=== PATIENT | male | born 1970 | race Caucasian/White ===

== ENCOUNTER 2017-03-11 20:03 | Observation (INO) | payer MEDICARE, OTHER, MEDICAID ==
[~2017-03-11] VITALS: Ht 177.8 cm; Wt 73.0 kg
[~2017-03-11 20:03] MED LIST: CATAPRES0.1 MG PO; LEXAPRO10 MG PO; RISPERDAL M-TAB1 MG PO; TRAZODONE HCL100 MG PO; VALPROIC ACID250 MG PO; ZOLPIDEM TART12.5 MG PO; [UNRECOGNIZED DRUG - OTHER] IM
--- NOTE | 2017-03-11 23:00 | NUR ---
TO CCU PER STRETCHER FROM ED. PT MOVED FROM STRETCHER TO BED USING SLIDER BOARD. PT DID TRY TO OPEN EYES BRIEFLY WITH MOVEMENT AND HAD RANDOM MOVEMENT OF ARMS. NO VERBALIZATION. POSITIONED TO SIDE. HAS NASAL AIRWAY IN PLACE WITH OXYMASK IN PLACE ALSO.
--- NOTE | 2017-03-12 00:05 | NUR ---
MOM IN WITH PT. NO CHANGE.
--- NOTE | 2017-03-12 00:52 | NUR ---
MOM HOME. PT REPOSITIONED AND DID NOT AWAKEN. MOM DID INFORM NURSE THAT WHEN PT DOES AWAKEN HE MAY BE ANGRY HE HAS PRESENTED THIS WAY IN THE PAST WHEN AWAKENING FROM OVERDOSES.
--- NOTE | 2017-03-12 03:00 | NUR ---
PT CONT TO SLEEP NO CHANGE.
--- NOTE | 2017-03-12 04:24 | NUR ---
POISON CONTROLL CALLED ABOUT 0300 AND RECOMMENDED TO REPEAT VALPROIC ACID LEVEL. PT COUGHED AND AWAKE. NASAL PHARYNGEAL AIRWAY REMOVED PER FLORIN RT. IS CONFUSED BUT DID REMEMBER TAKING YELLOW PILLS. IS SLOW TO RESPOND AND DELIBERATE. GIVEN SIP WATER AND ALICIA WELL. CONT TO USE 02 2L OXYMASK.
--- NOTE | 2017-03-12 04:59 | NUR ---
HAS LOOSE COUGH, IS MORE AWAKE. 02 OFF,SATS 95% RA.
--- NOTE | 2017-03-12 06:00 | NUR ---
AWAKENS EASILY, LAB DRAWN. IS FORGETFUL AND NEEDS TO BE REMINDED OF EVENTS EVERYTIME HE AWAKENS. COUGH IS NOT LOOSE.
--- NOTE | 2017-03-12 08:00 | NUR ---
ASSESSMENT DONE. PATIENT IS DROWSY. TALKED WITH PATIENT ABOUT PLAN OF CARE OF DAY. INC OF STOOL.
--- NOTE | 2017-03-12 08:57 | NUR ---
PT SLEEPY BUT OPENS EYES, CONFUSED TO PLACE STATES "I THOUGHT I WAS AT MY GRANDMOTHERS HOUSE". PT HAD EMESIS, 3 PARTIALLY DIGESTED PILLS NOTED. ORAL CARE COMPLETED, LINEN & GOWN CHANGED. HOB ELEVATED AND WARM BLANKET GIVEN PER PT REQUEST. VITAL SIGNS & ASSESSMENT COMPLETED. DR. FABIAN IN TO ASSESS PT BUT PT AGAIN NAUSEATED AND HAD SMALL EMESIS. DR. FABIAN WILL RETURN TO ASSESS PT. LINEN CHANGED AND PT MEDICATED ZOFRAN 4MG IV, PROTONIX 40 MG IV AND MAALOX 30 MLS PO. HOB REMAINS ELEVATED, MOTHER IN TO VISIT WITH PT. PT ABLE TO CONVERSE BUT IS STILL GROGGY.
--- NOTE | 2017-03-12 10:47 | NUR ---
PT SLEEPING WITH REU, SATS 96% HOB ELEVATED.
--- NOTE | 2017-03-12 12:13 | NUR ---
DR. FABIAN IN TO ASSESS PT. PT AWAKENS TO VOICE AND FOLLOWS COMMANDS BUT IS CONFUSED TO PLACE. STATES HE IS AT "[facility]". ASSESSMENT COMPLETED - PT WATCHING TV, DRINKING JUICE WITHOUT PROBLEMS. ROSALES CATHETER DC'D WITHOUT DIFFICULTY, PT ALICIA WELL. PT SITTING UP IN BED EATING JELLO AND SOUP. NO NAUSEA AT THIS TIME. [employer] NOTIFIED AND WILL SEND A CASE-WORKER TO ASSESS PT.
--- NOTE | 2017-03-12 12:58 | NUR ---
Art CircleELY CAN INTO VISIT WITH PATIENT AT THIS TIME, BUT WOULD NOT OPEN HIS EYE OR TALK WITH THEM AT THIS TIME. THIS LAND MANAGEMENT SUPERVISOR WENT INTO THE ROOM AND ASKED HIM TO OPEN HIS EYES AND HE DID, BUT WHEN THE MELTER SUPERVISOR STATRTED TO TALK HE CLOSED THEM AGAIN. MELTER SUPERVISOR WILL COME BACK LATER TODAY AND SEE IF PT WILL BE WILLING TO TALK WITH THEM.
[2017-03-12] MEDS ORDERED: LEVETIRACETAM500 MG PO (13:10)
[2017-03-12] MEDS ORDERED: TRUVADA 200 MG1 EACH PO (13:10)
[2017-03-12] MEDS ORDERED: ESCITALOPRAM OX20 MG PO (13:41)
--- NOTE | 2017-03-12 13:45 | NUR ---
PT SLEEPING AWAKENS BRIEFLY FOR SHORT PERIODS. [facility] (PHARMACY) HERE AND MOTHER OF PT HERE. [employer] ALSO HERE TO ASSESS PT BUT PT IS SLEEPY. [employer] REMAINS IN ROOM TALKING WITH PT.
--- NOTE | 2017-03-12 14:03 | EKG ---
[facility] [address] [facility] [place] [address] Signed Normal sinus rhythm Normal ECG No previous ECGs available Confirmed by EDMAR FABIAN MD ([id number]) on 03/12/2017 2:03:06 PM Electronically Signed By: EDMAR FABIAN MD 03/12/17 1403 PATIENT NAME: LEONOR LEVIN MARINA Electrocardiogram DATE OF : 70 PHYSICIAN: EDMAR FABIAN MD REPORT #: [id number] REPORT IS CONFIDENTIAL AND NOT TO BE RELEASED WITHOUT AUTHORIZATION
--- NOTE | 2017-03-12 14:04 | NUR ---
Medications reconciled using pharmacy prescription records and patient's mother's interview. She will also bring in his meds later today
--- NOTE | 2017-03-12 14:17 | NUR ---
CRISIS WORKING COMPLETED HER ASSESSMENT AND STATES FEELING COMFORTABLE SENDING PT HOME IF HIS MOTHER WILL BE WITH HIM.
--- NOTE | 2017-03-12 14:45 | NUR ---
Medication verification complete. Patient's mother brought in bag of patient's meds
--- NOTE | 2017-03-12 16:06 | NUR ---
PT SLEEPING BUT AWAKENS TO VOICE. PT HAS SLEEP APNEA AND SATS DECREASED TO 73%. 02 ON AT L3 PER OXYMASK.
--- NOTE | 2017-03-12 16:19 | NUR ---
PT AWAKE AND VOIDED 200 MLS DARK ORANGE URINE.
--- NOTE | 2017-03-12 16:29 | NUR ---
ASSESSMENT COMPLETED, LUNGS WITH RHONCHI IN LEFT UPPER LOBE, PT WITH GOOD STRONGE COUGH. PT FALLS ASLEEP QUICKLY, 02 ON @ 3L PER OXYMASK AND HOB ELEVATED.
--- NOTE | 2017-03-12 18:24 | NUR ---
PT AWAKE, SATS 100% ON 3L PER OXYMASK, 02 OFF AND SATS 98%. MOTHER IN ROOM VISITING WITH PT.
--- NOTE | 2017-03-13 00:59 | NUR ---
PT BED ALARM GOING OFF. SITTING AT BEDSIDE. APPEARS CONFUSED. URINATED IN WATER CUP. PT REQUESTING TO GET UP TO BATHROOM TO VOID. AGREED TO VOID INTO URINAL D/T CONFUSION/POTENTIAL FOR FALL. VOIDED 225ML TO URINAL.
--- NOTE | 2017-03-13 06:52 | NUR ---
PT WATCHING TELEVISION. DENIES NEEDS.
--- NOTE | 2017-03-13 07:40 | NUR ---
PT CARE ASSUMED. PT RESTING IN BED. REQUESTING [employer]ATOR[employer] FOR BREAKFAST, DOES NOT WANT ANY FOOD. PT ALERT AND ORIENTED. DENIES ANY PAIN AT THIS TIME.
--- NOTE | 2017-03-13 09:24 | NUR ---
PT UP TO BATHROOM FOR SHOWER. DR GRAMAJO OKAY WITH PT BEING OFF MONITOR TO GO TO SHOWER
--- NOTE | 2017-03-13 09:31 | NUR ---
[employer] called for pt. will call back with an eta
--- NOTE | 2017-03-13 09:38 | NUR ---
POISON CONTROL CALLED FLOOR TO CHECK ON PT, THEY WILL CLOSE HIS CASE.
[2017-03-13] MEDS ORDERED: TRUVADA 200 MG1 EACH PO (10:14)
--- NOTE | 2017-03-13 10:26 | NUR ---
PASTORAL CARE IN ROOM WITH PT
--- NOTE | 2017-03-13 10:53 | NUR ---
[facility] IN TO SEE PT.
--- NOTE | 2017-03-13 11:51 | NUR ---
PT RESTING IN BED, SEEMS SOMEWHAT TENSE, MILDLY PUT OFF THAT THAT MED STAFF WON'T GIVE HIM HIS MEDS BACK THAT CREATED THE PROBLEM TO BEGIN WITH. HE MENTIONED THAT [employer] IS COMING IN. T REQUESTED PRAYER. WILL FOLLOW [facility]
--- NOTE | 2017-03-13 12:21 | NUR ---
PT AND MOM GIVEN DISCHARGE INSTRUCTIONS. VERBALIZED UNDERSTANDING. PT ALERT AND ORIENTED AT DEPART. TAKEN TO CAR IN WHEELCHAIR BY CARLITO
== END 2017-03-13 12:25 | disposition home or self-care (01) ==
LOC: ED 20:03 → CCU 20:04
PROVIDERS: ADMIT Internal Medicine
DX: T42.6X2A Poisoning by other antiepileptic and sedative-hypnotic drugs, intentional self-harm, initial encounter (principal); G92 Toxic encephalopathy; J96.02 Acute respiratory failure with hypercapnia; J96.01 Acute respiratory failure with hypoxia; F32.9 Major depressive disorder, single episode, unspecified; F10.20 Alcohol dependence, uncomplicated; I95.2 Hypotension due to drugs; E83.51 Hypocalcemia; R74.0 Nonspecific elevation of levels of transaminase and lactic acid dehydrogenase [LDH]; G40.909 Epilepsy, unspecified, not intractable, without status epilepticus; Z87.820 Personal history of traumatic brain injury; Z91.5 Personal history of self-harm; Z79.899 Other long term (current) drug therapy
CPT/HCPCS: 36415; 36600; 71010; 80053; 80164; 80176; 81001; 82306; 82803; 83735; 85025; 86704; 86706; 86803; 87340; 93005; 93010; 96360; 96361; 96374; 96375; 96376; 99285; G0378; G0480; J2405; J7030; J7120

== ENCOUNTER 2017-08-18 19:01 | Emergency (ER) | payer MEDICARE, OTHER, MEDICAID ==
[~2017-08-18] VITALS: Ht 177.8 cm; Wt 73.0 kg
[~2017-08-18 19:01] MED LIST changes: +ESCITALOPRAM OX20 MG PO; +LEVETIRACETAM500 MG PO; +TRUVADA 200 MG1 EACH PO
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
--- OUTSIDE RECORDS SUMMARY | 2017-08-18 19:54 | XMS | Clinical Summary ---
Demographics + + + | Address | [address] | | | [place] [address] | + + + | Home Phone | | + + + | Preferred Language | Unknown | + + + | Marital Status | Single | + + + | Holiness Affiliation | LUT | + + + | Race | White | + + + | Ethnic Group | Not or | + + + Author + + + | Author | [facility] INPATIENT REV LOC | + + + [...] Care Team Providers + +------+-------+ | Care Logistician Name | Role | Phone | + +------+-------+ | Reilly Shields MD | PP | tel | + +------+-------+ Source Comments TABITHA is fully live on both [facility] Ambulatory and [facility] InPatient.[facility] Allergies No Known Allergies Current Medications + [...] up as needed in the [facility] clinic ([phone]) with Dr. Gilliam. | + + Social [...]
== END 2017-08-18 22:20 | disposition home or self-care (01) ==
LOC: ED 19:01
DX: G40.909 Epilepsy, unspecified, not intractable, without status epilepticus (principal); F19.10 Other psychoactive substance abuse, uncomplicated; Z91.14 Patient's other noncompliance with medication regimen; F32.9 Major depressive disorder, single episode, unspecified; Z79.899 Other long term (current) drug therapy
CPT/HCPCS: 80053; 81001; 85025; 99284; G0480

== ENCOUNTER 2018-01-09 10:36 | Emergency (ER) | payer MEDICARE, OTHER, MEDICAID ==
[~2018-01-09] VITALS: Ht 177.8 cm; Wt 73.0 kg
== END 2018-01-09 13:42 | disposition home or self-care (01) ==
LOC: ED 10:36
DX: R45.851 Suicidal ideations (principal); F10.129 Alcohol abuse with intoxication, unspecified; Z87.891 Personal history of nicotine dependence; Z79.899 Other long term (current) drug therapy; Y90.8 Blood alcohol level of 240 mg/100 ml or more
CPT/HCPCS: 36415; 80053; 80176; 81001; 84443; 85025; 99283; G0480

== ENCOUNTER 2018-02-22 08:49 | Emergency (ER) | payer MEDICARE, OTHER, MEDICAID ==
[~2018-02-22] VITALS: Ht 177.8 cm; Wt 73.0 kg
[2018-02-22] MEDS ORDERED: NORCO 7.5-3251 EACH PO (10:40)
== END 2018-02-22 10:55 | disposition home or self-care (01) ==
LOC: ED 08:49
DX: S42.022A Displaced fracture of shaft of left clavicle, initial encounter for closed fracture (principal); V29.9XXA Motorcycle rider (driver) (passenger) injured in unspecified traffic accident, initial encounter; F32.9 Major depressive disorder, single episode, unspecified; Z79.899 Other long term (current) drug therapy
CPT/HCPCS: 73000; 73030; 99283

== ENCOUNTER 2018-03-19 11:38 | Day surgery (SDC) | payer MEDICARE, OTHER, MEDICAID ==
[~2018-03-19] VITALS: Ht 177.8 cm; Wt 59.4 kg
[~2018-03-19 11:38] MED LIST changes: +NORCO 7.5-3251 EACH PO
[2018-03-19] MEDS ORDERED: AMBIEN10 MG PO (12:10)
--- NOTE | 2018-03-19 15:31 | NUR ---
03/19/18 1531 [place] 1510- PT ARRIVES TO PACU. ARRIVES ON 6L VIA MASK, OXYGEN SAT HIGH 90'S TO THIS. PT EASILY AROUSABLE TO VOICE. REPORTS MILD PAIN, RATES IT A 2/10. DENIES NAUSEA. 1516- OXYGEN TUNRED OFF. OXYGEN SAT REMAINS IN THE HIGH 90'S ON RA. 1530- PT SITTING UP IN BED DRINKING WATER. REPORTS NO PAIN, NAUSEA, OR DIZZINESS. CMS INTACT TO LEFT HAND.
--- NOTE | 2018-03-19 16:10 | NUR ---
PT ARRIVES TO DS RM 10 FROM PACU AWAKE AND ALERT. PT DENIES ANY PAIN AND STATES HE IS "COMPLETELY NUMB." PT DENIES N/V. SCD'S IN PLACE. PT TOLERATES WATER WELL, IV SALINE LOCKED AT THIS TIME. PT MOTHER AT BEDSIDE ON ARRIVAL. PT STATES THAT HE FEELS THE URGE TO VOID. PT PROVIDED URINAL AND ABLE TO VOID 300 MLS CONCENTRATED URINE. PT PROVIDED CHOCOLATE PUDDING. WILL CONTINUE TO MONITOR.
--- NOTE | 2018-03-19 16:40 | NUR ---
PT DOES NOT HAVE A PAIN MEDICATION SCRIPT TO GO HOME WITH. DR. PEREZ NOTIFIED. PER DR. PEREZ, PT JUST GOT NORCO FILLED "AND SHOULD HAVE ENOUGH." PT IS TO CONTACT DR. PEREZ IF HE RUNS OUT OF MEDICATION FOR REFILL. PT STATES HE ONLY HAS "ABOUT 5 LEFT."
--- NOTE | 2018-03-19 16:56 | NUR ---
PT STATES THAT "TINGLING IS WORKING IT'S WAY UP MY ARM" AND IS AFRAID THAT BLOCK IS WEARING OFF. PAIN MEDICATION ADMINISTERED. PT RESTING IN BED WATCHING TV AND AGREES HE IS READY TO GO HOME.
--- NOTE | 2018-03-19 17:32 | NUR ---
DC INSTRUCTIONS GIVEN IN PRESENCE OF PT AND PT MOTHERGARTH. ALL QUESTIONS ANSWERED. PT DC'S VIA WC FROM DS RM 10 WITH MOTHER.
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
== END 2018-03-19 17:25 | disposition home or self-care (01) ==
LOC: OPS 11:38 → DS 11:38 → OPS 13:00
PROVIDERS: Specialist
PROC: 0PSB04Z Reposition Left Clavicle with Internal Fixation Device, Open Approach (ICD-10-PCS; principal; 2018-03-19 13:30)
DX: S42.022A Displaced fracture of shaft of left clavicle, initial encounter for closed fracture (principal); Z79.899 Other long term (current) drug therapy; Z87.820 Personal history of traumatic brain injury
CPT/HCPCS: 64445; 73000; 76942; C1713; J0330; J0690; J1100; J2250; J2405; J2710; J3010; J7120

== ENCOUNTER 2018-09-15 14:23 | Emergency (ER) | payer MEDICARE, OTHER, MEDICAID ==
[~2018-09-15] VITALS: Ht 177.8 cm; Wt 57.4 kg
[~2018-09-15 14:23] MED LIST changes: +AMBIEN10 MG PO
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
== END 2018-09-15 17:30 | disposition home or self-care (01) ==
LOC: ED 14:23
DX: T74.21XA Adult sexual abuse, confirmed, initial encounter (principal); S60.512A Abrasion of left hand, initial encounter; S60.511A Abrasion of right hand, initial encounter; F32.9 Major depressive disorder, single episode, unspecified; Z79.899 Other long term (current) drug therapy; X58.XXXA Exposure to other specified factors, initial encounter
CPT/HCPCS: 73000; 96372; 99284-25; J0696

== ENCOUNTER 2022-06-14 09:01 | Emergency (ER) | payer MEDICARE, OTHER ==
[~2022-06-14] VITALS: Ht 177.8 cm; Wt 58.2 kg
[~2022-06-14 09:01] MED LIST changes: +ATIVAN0.5 MG PO; +CELEBREX200 MG PO; +LAMICTAL150 MG PO; +MULTIVITAMINS1 EAC7 PO; +TRAMADOL HCL50 MG PO; +TYLENOL325 M1 PO
--- OUTSIDE RECORDS SUMMARY | 2022-06-14 09:07 | XMS ---
PreManage Notification: LEONOR LEVIN Security Home Manager Events No recent Security Events currently on file CRITERIA MET - PDMP CARE PROVIDERS KAREEM LOOLM Internal Medicine 09/16/2018-Current PHONE: Unknown Care Guidelines exist for the following facilities: [facility] ( 11/16/2019 ) Care History Medical/Surgical 09/16/2018 [facility] - Patient is currently established with [facility]. If patient is seen in the ED during business hours. Please contact CHWs at [facility]. Care Recommendation: This patient has had 5 or more Emergency Department visits in the last 12 months.\T\nbsp; Patient requires education on the scope and purpose of the ED as an acute care provider not a Primary Care Provider and should not be utilized for chronic conditions.\T\nbsp; These are guidelines and the provider should exercise clinical judgment when providing care. E.D. VISIT COUNT (12 MO.) 2 [facility]NA [facility] TOTAL 2 NOTE: Visits indicate total known visits. ED/UCC VISIT TRACKING (12 MO.) 06/14/2022 09:05 [facility] [place] TYPE: Emergency COMPLAINT: - LAB WORK PER TABITHA THRU ER 11/26/2021 15:06 [facility] [place] TYPE: Emergency COMPLAINT: - POSS SEIZURE DIAGNOSES: - Personal history of traumatic brain injury - Personal history of nicotine dependence - Other long term care phlebotomist (current) drug therapy - Depression, unspecified - Unspecified convulsions INPATIENT VISIT TRACKING (12 MO.) No inpatient visits to display in this time frame [email or web address]
== END 2022-06-14 13:14 | disposition home or self-care (01) ==
LOC: ED 09:01
DX: A52.71 Late syphilitic oculopathy (principal); Z87.891 Personal history of nicotine dependence; Z79.899 Other long term (current) drug therapy
CPT/HCPCS: 36569; 99283; C1751

== ENCOUNTER 2022-06-21 10:26 | Emergency (ER) | payer MEDICARE, OTHER ==
[~2022-06-21] VITALS: Ht 177.8 cm; Wt 58.5 kg
--- OUTSIDE RECORDS SUMMARY | 2022-06-21 10:28 | XMS ---
PreManage Notification: LEONOR LEVIN Security Alum Plant Supervisor Events No recent Security Events currently on file CRITERIA MET - [facility] - 2 Visits in 30 Days - PDMP CARE PROVIDERS LALITA LOO Internal Medicine 09/16/2018-Current PHONE: Unknown Care Guidelines exist for the following facilities: [facility] ( 11/16/2019 ) Care History Medical/Surgical 09/16/2018 [facility] - Patient is currently established with [facility]. If patient is seen in the ED during business hours. Please contact CHWs at [facility]. Care Recommendation: This patient has had [...] providing care. E.D. VISIT COUNT (12 MO.) 3 [facility]ANNA [facility] TOTAL 3 NOTE: Visits indicate total known visits. ED/UCC VISIT TRACKING (12 MO.) 06/21/2022 10:26 [facility] [place] TYPE: Emergency COMPLAINT: - WOUND CHECK 06/14/2022 09:05 [facility] [place] TYPE: Emergency COMPLAINT: - LAB WORK PER [facility] ER DIAGNOSES: - Late syphilitic oculopathy - Personal history of nicotine dependence - Other detention (current) drug therapy 11/26/2021 15:06 [facility] [place] TYPE: Emergency COMPLAINT: - POSS SEIZURE DIAGNOSES: - Personal history of nicotine dependence - Other supervisor intermediates (current) drug therapy - Depression, unspecified - Unspecified convulsions - Personal history of traumatic brain injury INPATIENT VISIT TRACKING (12 MO.) No inpatient visits to display in this time frame [email or web address]
[2022-06-21] MEDS ORDERED: ELIQUIS5 MG (12:40)
[2022-06-21] MEDS ORDERED: HYDROCODON-ACE1 EA10 PO (15:43)
== END 2022-06-21 15:42 | disposition home or self-care (01) ==
LOC: ED 10:26
DX: A52.3 Neurosyphilis, unspecified (principal); I80.8 Phlebitis and thrombophlebitis of other sites; Z87.891 Personal history of nicotine dependence; Z79.899 Other long term (current) drug therapy; Z79.01 Long term (current) use of anticoagulants
CPT/HCPCS: 93971; A9270; J0696

== ENCOUNTER 2022-10-13 10:57 | Inpatient (IN) | payer MEDICARE, OTHER ==
[~2022-10-13] VITALS: Ht 177.8 cm; Wt 71.9 kg
[~2022-10-13 10:57] MED LIST changes: +ELIQUIS5 MG; +HYDROCODON-ACE1 EA10 PO; +NALTREXONE HCL50 MG PO; +OYSTER SHELL C500 MG PO
--- OUTSIDE RECORDS SUMMARY | 2022-10-13 11:00 | XMS ---
PreManage Notification: LEONOR LEVIN Security Safety And Occupational Health Manager Events No recent Security Events currently on file CRITERIA MET - [facility] - 2 Visits in 30 Days - PDMP CARE PROVIDERS LALITA LOO Internal Medicine 09/16/2018-Current PHONE: Unknown Care Guidelines exist for the following facilities: [facility] ( 11/16/2019 ) Care History Medical/Surgical 09/16/2018 [facility] - Patient is currently established with [facility]. If patient is seen in the ED during business hours. Please contact CHWs at [facility]. Care Recommendation: This patient has had 5 [...] providing care. E.D. VISIT COUNT (12 MO.) 6 BRIANNA Shore TOTAL 6 NOTE: Visits indicate total known visits. 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 - Other custodial (current) drug therapy - Unspecified convulsions - Patient's other noncompliance with medication regimen 06/21/2022 10:26 BRIANNA Driscoll [place] TYPE: Emergency COMPLAINT: - WOUND CHECK DIAGNOSES: - senior care (current) use of anticoagulants - Personal history of nicotine dependence - Neurosyphilis, unspecified - Phlebitis and thrombophlebitis of other sites - Pain in left arm - Other custodial (current) drug therapy 06/14/2022 09:05 BRIANNA Driscoll [place] TYPE: Emergency COMPLAINT: - LAB WORK PER [facility] ER DIAGNOSES: - Personal history of nicotine dependence - Other custodial (current) drug therapy - Late syphilitic oculopathy 11/26/2021 15:06 BRIANNA Driscoll [place] TYPE: Emergency COMPLAINT: - POSS SEIZURE DIAGNOSES: - Depression, unspecified - Unspecified convulsions - Personal history of traumatic brain injury - Personal history of nicotine dependence - Other custodial (current) drug therapy INPATIENT VISIT TRACKING (12 MO.) No inpatient visits to display in this time frame [id number]
[2022-10-13] MEDS ORDERED: ONDANSETRON ODT8 MG PO (12:13)
--- NOTE | 2022-10-13 14:40 | NUR ---
PT ARRIVED TO CCU ROOM 129, ADMITTED FOR SEPSIS, SEIZURES, AND POSSIBLE ALCOHOL WITHDRAWAL. REPORT RECEIVED FROM RAFIA THOMPSON, TRANSFERRED TO BED. PT WAS AGITATED AND TRYING TO CLIMB OUT OF BED, PULLING AT CORDS, DESPITE ATTEMPTS AT REORIENTATION, FOUND TO HAVE LOOSE STOOL, PT CLEANED UP AND HE CONTINUED TO BE SOMEWHAT AGITATED, TRYING TO GET OUT OF BED AND NOT DIRECTABLE. 2MG IV ATIVAN GIVEN AND PT EVENTUALLY CALMED DOWN TO REST. MOTHER GARTH IS WITH PT AND INFORMATION FOR ADMISSION ASSESSMENT IS FROM HER. IVF STARTED PER ORDERS.
--- NOTE | 2022-10-13 16:14 | NUR ---
DR GRAMAJO UPDATED ON PT, INCLUDING RECENT TEMPS, SHE WILL BE PLACING ORDER FOR RECTAL TYLENOL. IV ABX INFUSING. PT IS OCCASIONALLY WAKING, TOSSING AND TURNING BUT NO LONGER TRYING TO GET OUT OF BED.
--- NOTE | 2022-10-13 16:26 | NUR ---
2MG IV ATIVAN FOR CIWA 15, PT AWAKE AND AGITATED AGAIN, NOT ABLE TO ANSWER ANY OF THE ORIENTATION QUESTIONS, STATES "NO" WHEN ASKED IF HE KNOWS WHERE HE IS. AFTER ATIVAN PT CALMS AND GOES BACK TO SLEEP.
--- NOTE | 2022-10-13 17:01 | NUR ---
PT AGAIN BECAME AGITATED, TRYING TO GET OUT OF BED, ASSISTED WITH USING URINAL ALTHOUGH HE WAS STILL QUITE COMBATIVE. PT REPOSITIONED UP IN BED, STARTING TO MAKE HAND MOTIONS LIKE HE IS SMOKING A CIGARETTE. 2MG IV ATIVAN GIVEN.
--- NOTE | 2022-10-13 18:50 | NUR ---
CALL TO DR GRAMAJO, QUICK UPDATE GIVEN ON PT STATUS, MEDS GIVEN AND CONT ELEVEATED TEMP.
--- NOTE | 2022-10-13 19:28 | NUR ---
PT HAS BECOME AGITATED AND RESTLESS AGAIN, PULLING AT IV LINES AND CORDS AND TRYING TO GET OUT OF BED, 2MG IV ATIVAN GIVEN. MOM ALSO BACK TO SIT WITH PT. BED ALARM ON.
--- NOTE | 2022-10-13 19:45 | NUR ---
PT ASSESSED AND FOUND TO BE RESTLESS, ATTEMPTING TO GET OUT OF BED WITH SECURITY AT BEDSIDE. CIWA ASSESSED AND PRN LORAZEPAM ADMINISTERED. PT IS ALERT BUT DISORIENTED X 4. PT FOUND TO BE MOVING ALL FOUR EXTREMITIES BUT DOES NOT FOLLOW COMMANDS. BED ALARM TURNED ON, AND ALARM LIMITS SET.
--- NOTE | 2022-10-14 00:15 | NUR ---
BLADDER SCANNED AND 598 CC NOTED. PT INSTRUCTED TO URINATE, HOWEVER, UNWILLING TO DO SO AT THIS TIME. PT WITH RASS OF -3. SEDATION LIGHTENED TO 0.2
--- NOTE | 2022-10-14 02:31 | NUR ---
PT WAKES TRYING TO GET OUT OF BED AND YELLING. CIWA 14. SEDATION MEDICATION RESTARTED AT 0.2 MCG/KG/HR AND ATIVAN PROVIDED. PT RESTING IN BED AT THIS TIME. RAILS UP, BED LOCKED AND LOW, CURTAIN AND DOOR OPEN FOR OBSERVATION, BED ALARM ON.
--- NOTE | 2022-10-14 06:13 | NUR ---
PT REMAINS ALTERED AND UNWILLING TO FOLLOW COMMANDS. PT WITH CONINUED RESTLESSNESS REQUIRING LOW-DOSE PRECEDEX GTT., AND MULTIPLE PRNS FOR ELEVATED CIWA SCORES. PT HAS BEEN IN A NSR, NORMOTENSIVE AND INITIAL FEVER HAS RESOLVED. PT NOTED TO HAVE URINARY RETENTION. ROSALES CATHETER INSERTED PER MD ORDER. PT WITH ADEQUATE UO. LABS: RESOLVING LEUKOCYTOSIS - WBC NOW 16.3 DOWN FROM 29.5. IMPROVED RENAL FUNCTION BUN/CREAT - 12/.71. MAG 2.4
--- NOTE | 2022-10-14 07:50 | NUR ---
REPORT RECEIVED FROM DAVON THOMPSON. PT IS RESTING IN BED WITH EYES CLOSED, HR 60'S, SINUS RHYTHM, SPO2 96% ON ROOM AIR WITH RR 13. BED ALARM IS ON. PRECEDEX DRIP IS INFUSING AT 0.2 MCG/KG/HR AND IVF INFUSING AT 125ML/HR.
[2022-10-14] MEDS ORDERED: DIFLUPREDNATE5 ML OU (09:01)
[2022-10-14] MEDS ORDERED: ALENDRONATE SOD70 MG PO (09:04)
--- NOTE | 2022-10-14 09:20 | NUR ---
PATIENT RESTING IN BED, EYES CLOSED. VITALS AND I&OS CHARTED, ROSALES EMPTIED.
--- NOTE | 2022-10-14 09:25 | NUR ---
PRECEDEX GTT PLACED ON STANDBY FOR NOW TO ASSESS PT'S NEURO STATUS.
--- NOTE | 2022-10-14 12:15 | NUR ---
PATIENT BACK TO BED AFTER USING BSC FOR BM. MOTHER IN ROOM, LINEN CHANGED. BED ALARM ON FOR SAFETY.
--- NOTE | 2022-10-14 13:03 | NUR ---
INTO TO SEE PATIENT, PATIENT IN BED RESTING. PATIENTS MOTHER GARTH AT BEDSIDE TO ASSIST WITH CM ASSESSMENT. PATIENT CURRENTLY LIVE ALONE IN A HOME IN [place]. PATIENT MOTHER STATES HE HAS A HX OF A TBI 18 YEARS AGO AND DOES HAVE A SEIZURE DISORDER. PATIENT DOES NOT REQUIRE ANY DME. PATIENT MOTHER STATES HE RECVS FOOD STAMPS AND SSI. GARTH, PATIENT MOTHER WILL STAY WITH THE PATIENT AFTER DISCHARGE. DURING ASSESSMENT WITH PATIENT MOTHER, PATIENT DOES AWAKEN. PATIENT IS ABLE TO SPEAK IN SHORT SENTENCES, BUT DID NOT APPEAR TO TRACK THE CONVERSATION. WILL FOLLOW UP TO SPEAK PATIENT REGARDING POSSIBLE [facility] REFERRAL.
--- NOTE | 2022-10-14 13:08 | NUR ---
PT SITTING UP IN CHAIR, VAPOTHERM TURNED DOWN BY RT TO 30L/60%. SPO2 95% AND RR 22.
--- NOTE | 2022-10-14 13:09 | NUR ---
MED LIST AND RECORDS REQUESTED AT THIS TIME
--- NOTE | 2022-10-14 13:14 | NUR ---
[facility] BED [facility] AND [facility] 70[facility]. REMAINS OFF PRECEDEX GTT.
--- NOTE | 2022-10-14 13:35 | NUR ---
PT CONTINUES TO REST IN BED WITH EYES CLOSED, RRR, HR 80'S, RR 12. MOM LEAVING FOR NOW. BED ALARM IS ON.
--- NOTE | 2022-10-14 16:57 | NUR ---
UPDATE TO MARTINA RODAS TO DC ROSALES. ROSALES DCD WITH BALLOON INTACT.
--- NOTE | 2022-10-15 06:19 | NUR ---
PT REMAINS AWAKE, ALERT AND ORIENTED X 4 WITH A GCS OF 15. PT FOLLOWS COMMANDS APPROPRIATELY AND MOVES ALL FOUR EXTREMITIES WITH PURPOSE. CMS X 4 INTACT. PT HAS SCORED 0 ON CIWA. PT HAS BEEN IN A NSR, NORMOTENSIVE AND A-FEBRILE. PT WITH ADEQUATE UO. PT ABLE TO MOVES AND ADJUST SELF IN BED. LABS: RESOLVED LEUKOCYSTOSIS. IMPROVED CREAT OF .66. K NOTED TO BE 3.2. PT RECEIVING ROCEPH. AND AZITHROMYCIN FOR ABX THERAPY. BC AND UC REMAIN PENDING.
--- NOTE | 2022-10-15 08:21 | NUR ---
PATIENT AWAKE IN BED, SPEAKING WITH CASE MANAGEMENT/CINTHIA. VITALS CHARTED, WASH CLOTH PROVIDED FOR FACE AND HANDS. CALL LIGHT AND PERSONAL PHONE IN EASY REACH
--- NOTE | 2022-10-15 08:45 | NUR ---
PATIENT AWAKE IN BED, VITALS CHARTED. FACE AND HANDS WASHED. DIET ADVANCED PER DR GRAMAJO, BREAKFAST TRAY ORDERED. CALL LIGHT AND PERSONAL PHONE IN EASY REACH
--- NOTE | 2022-10-15 08:47 | NUR ---
IN PATIENT'S ROOM FOR AM ASSESSMENT AND VITALS. IV SALINE LOCKED AT THIS TIME. IV IN LEFT WRIST WAS REDRESSED DUE TO LEAKING. PT IS ALERT, ORIENTED AND CONVERSIVE. PHARMACY NOW IN ROOM TO DISCUSS MEDS. DR. GRAMAJO HAS BEEN IN TO SEE PATIENT ALREADY AND PLAN OF CARE DISCUSSED. PT EAGER TO D/C HOME, AND ALSO EAGER TO EAT. DIET BEING ADVANCED TO REGULAR. WILL CONTINUE TO MONITOR.
--- NOTE | 2022-10-15 08:50 | NUR ---
Spoke with Brian. He states he lives in a house and cares for himself. He states he is an alcoholic and has had treatment in the past through [facility] [facility] He currently goes to [facility] for counseling and meds. He is not currently getting treatment for alcohol. He states he does not like [facility]. We discussed other option of [facility]. I gave him both numbers for alcohol treatment. Pt states he not currenly ready for treatment, but will consider. He states his mom checks on him daily and he believes he had a seizure and this why he is here. We did discuss psych meds and seizure meds probably don't mix well with alcohol. Pt states he is aware, but mostly drinks wine. Pt plans on dc to home with assist from his mom. Denies needs has card for [facility] and [facility].
[2022-10-15] MEDS ORDERED: ESCITALOPRAM OX10 MG PO (08:59)
[2022-10-15] MEDS ORDERED: ZOLPIDEM TART12.5 MG PO (09:00)
--- NOTE | 2022-10-15 09:01 | NUR ---
MED REC COMPLETE
--- NOTE | 2022-10-15 10:23 | NUR ---
PATIENT'S MOTHER NOW IN ROOM. PATIENT WILL LIKELY D/C HOME TODAY. FOLLOW UP APPOINTMENT MADE FOR NEXT FRIDAY AT 9:[address] LOO.
--- NOTE | 2022-10-15 10:29 | NUR ---
FOLLOWUP APPOINTMENT MADE WITH DR LOO'S OFFICE
[2022-10-15] MEDS ORDERED: LEVOFLOXACIN750 MG PO (11:00)
--- NOTE | 2022-10-15 12:06 | NUR ---
PATIENT DRESSED IN PERSONAL CLOTHING, D/C VITALS CHARTED.
--- NOTE | 2022-10-15 12:23 | NUR ---
PATIENT BEING PREPARED FOR D/C. PT UP TO BATHROOM TO VOID AND HAD SMALL INCONTINENCE OF STOOL. PT ABLE TO CLEAN HIMSELF. PT NOW SITTING IN CHAIR AND EATING LUNCH. PT'S MOTHER TO RETURN TO TAKE HIM HOME. PT'S ONLY MEDICATION THAT WAS FOUND IS PATIENT'S EYE DROPS. NO OTHER MEDS ARE FOUND IN ROOM OR IN ANY [facility] PERSONAL BAG. PT'S MOTHER STATES THAT SHE REMEMBERS GIVING PT'S MEDICATIONS TO THE PARAMEDICS WHEN THEY PICKED HIM UP. PT UNSURE OF THIS. PT'S MOTHER STATED THAT SHE WOULD CHECK HIS HOUSE TO SEE IF THERE WERE ANY MEDS LEFT THERE.
== END 2022-10-15 12:55 | disposition home or self-care (01) | DRG 871 ==
LOC: ED 10:57 → CCU 14:16
PROVIDERS: ADMIT Internal Medicine; ATTEND Internal Medicine
DX: A40.3 Sepsis due to Streptococcus pneumoniae (principal); J13 Pneumonia due to Streptococcus pneumoniae; J69.0 Pneumonitis due to inhalation of food and vomit; N39.0 Urinary tract infection, site not specified; N17.9 Acute kidney failure, unspecified; Z20.822 Contact with and (suspected) exposure to COVID-19; F10.20 Alcohol dependence, uncomplicated; F32.A Depression, unspecified; G40.909 Epilepsy, unspecified, not intractable, without status epilepticus; Z87.820 Personal history of traumatic brain injury; Z87.891 Personal history of nicotine dependence; Z98.890 Other specified postprocedural states; Z79.899 Other long term (current) drug therapy
CPT/HCPCS: 36415; 51702; 71045; 80048; 80053; 81001; 83605; 83735; 85025; 87040; 87077; 87088; 87186; 87502; 96361; 96365; 96375; 96376; 99285-25; C9113; G0480; J0456; J0696; J1650; J1953; J2060; J3411; J7030; J7060; U0003

== ENCOUNTER 2023-01-01 14:19 | Emergency (ER) | payer MEDICARE, OTHER ==
[~2023-01-01] VITALS: Ht 177.8 cm; Wt 71.8 kg
[~2023-01-01 14:19] MED LIST changes: +ALENDRONATE SOD70 MG PO; +DIFLUPREDNATE5 ML OU; +ESCITALOPRAM OX10 MG PO; +LEVOFLOXACIN750 MG PO; +ONDANSETRON ODT8 MG PO
--- OUTSIDE RECORDS SUMMARY | 2023-01-01 14:20 | XMS ---
PreManage Notification: LEONOR LEVIN Security Child And Family Counselor Events No recent Security Events currently on file CRITERIA MET - PDMP CARE PROVIDERS KAREEM LOOLM Internal Medicine 09/16/2018-Current PHONE: Unknown Care Guidelines exist for the following facilities: [facility] ( 11/16/2019 ) Care History Medical/Surgical 09/16/2018 [facility] - Patient is currently established with [facility]. If patient is seen in the ED during business hours. Please contact CHWs at [facility]. Care Recommendation: This patient has had 5 [...] known visits. ED/UCC VISIT TRACKING (12 MO.) 01/01/2023 14:19 BRIANNA Driscoll [place] TYPE: Emergency COMPLAINT: - MEDICAL CLEARANCE 10/13/2022 10:57 BRIANNA Driscoll [place] TYPE: Emergency COMPLAINT: - POSSIBLE SEIZURE 09/14/2022 00:01 BRIANNA Baptisteclaudia FinleyEd [place] TYPE: Emergency COMPLAINT: - AMS DIAGNOSES: - Altered mental status, unspecified - Other jail (current) drug therapy - Personal history of nicotine dependence 09/13/2022 01:14 BRIANNA Baptisteony Iliana [place] TYPE: Emergency COMPLAINT: - SEIZURE DIAGNOSES: - care home (current) use of anticoagulants - Other jail (current) drug therapy - Patient's other noncompliance with medication regimen - Personal history of nicotine dependence - Personal history of traumatic brain injury - Unspecified convulsions 06/21/2022 10:26 BRIANNA Driscoll [place] TYPE: Emergency COMPLAINT: - WOUND CHECK DIAGNOSES: - 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 - Neurosyphilis, unspecified - Other jail (current) drug therapy - Pain in left arm - Personal history of nicotine dependence - Phlebitis and thrombophlebitis of other sites 06/14/2022 09:05 BRIANNA Driscoll [place] TYPE: Emergency COMPLAINT: - LAB WORK PER [facility] ER DIAGNOSES: - Late syphilitic oculopathy - Other adjunct faculty for medical terminology (current) drug therapy - Personal history of nicotine dependence INPATIENT VISIT TRACKING (12 MO.) 10/13/2022 14:16 BRIANNA Driscoll [place] TYPE: Critical Care COMPLAINT: - SEPSIS,PNEUMONIA,ALCOHOL WITHDRAWAL,SEIZURE DISORD DIAGNOSES: - Acute kidney failure, unspecified - Acute kidney failure, unspecified - Alcohol dependence, uncomplicated - Alcohol dependence, uncomplicated - Contact with and (suspected) exposure to COVID-19 - Contact with and (suspected) exposure to COVID-19 - Depression, unspecified - Depression, unspecified - Epilepsy, unspecified, not intractable, without status epilepticus - Epilepsy, unspecified, not intractable, without status epilepticus - Other jail (current) drug therapy - Other jail (current) drug therapy - Other specified postprocedural states - Other specified postprocedural states - Personal history of nicotine dependence - Personal history of nicotine dependence - Personal history of traumatic brain injury - Personal history of traumatic brain injury - Pneumonia due to Streptococcus pneumoniae - Pneumonia due to Streptococcus pneumoniae - Pneumonitis due to inhalation of food and vomit - Pneumonitis due to inhalation of food and vomit - Sepsis due to Streptococcus pneumoniae - Sepsis due to Streptococcus pneumoniae - Sepsis, unspecified organism - Urinary tract infection, site not specified - Urinary tract infection, site not specified [id number]
[2023-01-01 18:11] VITALS: BP 112/80
[2023-01-02] MEDS ORDERED: DIASTAT ACUDIAL1 EA PR (13:29)
== END 2023-01-01 18:11 | disposition home or self-care (01) ==
LOC: ED 14:19
DX: R45.851 Suicidal ideations (principal); F10.129 Alcohol abuse with intoxication, unspecified; Y90.8 Blood alcohol level of 240 mg/100 ml or more; Z87.891 Personal history of nicotine dependence; Z79.899 Other long term (current) drug therapy
CPT/HCPCS: 36415; 80053; 84443; 85025; 85060; 99285; G0480

== ENCOUNTER 2023-01-02 11:27 | Emergency (ER) | payer MEDICARE, OTHER ==
--- OUTSIDE RECORDS SUMMARY | 2023-01-02 11:29 | XMS ---
PreManage Notification: LEONOR LEVIN Security Department Clerk Events No recent Security Events currently on file CRITERIA MET - [facility] - [facility] - 2 Visits in 30 Days CARE PROVIDERS LALITA LOO Internal Medicine 09/16/2018-Current PHONE: Unknown Care Guidelines exist for the following facilities: [facility] ( 11/16/2019 ) Care History Medical/Surgical 09/16/2018 [facility] - Patient is currently established with [facility]. If patient is seen in the ED during business hours. Please contact CHWs at [facility]. Care Recommendation: This patient has [...] providing care. E.D. VISIT COUNT (12 MO.) 7 BRIANNA Shore TOTAL 7 NOTE: Visits indicate total known visits. ED/UCC VISIT TRACKING (12 MO.) 01/02/2023 11:27 BRIANNA Driscoll [place] TYPE: Emergency COMPLAINT: - MEDICAL CLEARANCE 01/01/2023 14:19 BRIANNA Driscoll [place] TYPE: Emergency COMPLAINT: - MEDICAL CLEARANCE 10/13/2022 10:57 BRIANNA Driscoll [place] TYPE: Emergency COMPLAINT: - POSSIBLE SEIZURE 09/14/2022 00:01 BRIANNA Driscoll [place] TYPE: Emergency COMPLAINT: - AMS DIAGNOSES: - Altered mental status, unspecified - Other parts counterman (current) drug therapy - Personal history of nicotine dependence 09/13/2022 01:14 BRIANNA Driscoll [place] TYPE: Emergency COMPLAINT: - SEIZURE DIAGNOSES: - snf (current) use of anticoagulants - Other parts counterman (current) drug therapy - Patient's other noncompliance with medication regimen - Personal history of nicotine dependence - Personal history of traumatic brain injury - Unspecified convulsions 06/21/2022 10:26 BRIANNA Driscoll [place] TYPE: Emergency COMPLAINT: - WOUND CHECK DIAGNOSES: - 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 - Neurosyphilis, unspecified - Other senior living (current) drug therapy - Pain in left arm - Personal history of nicotine dependence - Phlebitis and thrombophlebitis of other sites 06/14/2022 09:05 BRIANNA Driscoll [place] TYPE: Emergency COMPLAINT: - LAB WORK PER [facility] ER DIAGNOSES: - Late syphilitic oculopathy - Other parts counterman (current) drug therapy - Personal history of [...] not intractable, without status epilepticus - Other senior living (current) drug therapy - Other parts counterman (current) drug therapy - Other specified postprocedural [...] - Urinary tract infection, site not specified [id number]
[2023-01-02] MEDS ORDERED: DIASTAT ACUDIAL1 EA PR (13:29)
[2023-01-02 15:40] VITALS: BP 127/81
== END 2023-01-02 15:40 | disposition home or self-care (01) ==
LOC: ED 11:27
DX: R56.9 Unspecified convulsions (principal); Z87.891 Personal history of nicotine dependence; Z79.899 Other long term (current) drug therapy
CPT/HCPCS: 36415; 51701; 70450; 71045; 71250; 74177; 80053; 80175; 80177; 81003; 85025; 85060; 85610; 99284-25; G0480; J1953; J2060; Q9967

== ENCOUNTER 2023-04-03 09:52 | Emergency (ER) | payer MEDICARE, OTHER ==
[~2023-04-03] VITALS: Ht 177.8 cm; Wt 71.8 kg
--- OUTSIDE RECORDS SUMMARY | ~2023-04-03 | XMS | Continuity of Care Document ---
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 +--------+ + + + + | Result panel 5 | + + + + + +--------+ + + | | 2022-09-13 | [facility] | 13.8 | (missing) | (missing) | | (unavailable | 01:30:08 | [facility] | | | | + + + +--------+ + + + + | Result panel 6 | + + + + + +--------+ + + | | 2022-09-13 | [facility] | 42.8 | (missing) | (missing) | | (unavailable | 01:30:08 | [facility] | | | | + + + +--------+ + + + + | Result panel 7 | + + + + + +--------+ + + | | 2022-09-13 | [facility] | 91.8 | (missing) | (missing) | | (unavailable | 01:30:08 | [facility] | | | | + + + +--------+ + + + + | Result panel 8 | + + + + + +--------+ + + | | 2022-09-13 | [facility] | 29.6 | (missing) | (missing) | | (unavailable | 01:30:08 | [facility] | | | | + + + +--------+ + + + + | Result panel 9 | + + + + + +--------+ + + | | 2022-09-13 | [facility] | 32.2 | (missing) | (missing) | | (unavailable | 01:30:08 | [facility] | | | | + + + +--------+ + + + + | Result panel 10 | + + + + + +--------+ + + | | 2022-09-13 | [facility] | 18.8 | (missing) | (missing) | | (unavailable | 01:30:08 | [facility] | | | | + + + +--------+ + + + + | Result panel 11 | + + + + + +-------+ + + | | 2022-09-13 | [facility] | 276 | (missing) | (missing) | | (unavailable | 01:30:08 | [facility] | | | | + + + +-------+ + + + + | Result panel 12 | + + + + + +--------+ + + | | 2022-09-13 | [facility] | 50.2 | (missing) | (missing) | | (unavailable | 01:30:08 | [facility] | | | | + + + +--------+ + + + + | Result panel 13 | + + + + + +--------+ + + | | 2022-09-13 | [facility] | 43.8 | (missing) | (missing) | | (unavailable | 01:30:08 | [facility] | | | | + + + +--------+ + + + + | Result panel 14 | + + + + + +-------+ + + | | 2022-09-13 | [facility] | 5.5 | (missing) | (missing) | | (unavailable | 01:30:08 | [facility] | | | | + + + +-------+ + + + + | Result panel 15 | + + + + + +-------+ + + | | 2022-09-13 | [facility] | 0.3 | (missing) | (missing) | | (unavailable | 01:30:08 | [facility] | | | | + + + +-------+ + + + + | Result panel 16 | + + + + + +-------+ + + | | 2022-09-13 | [facility] | 0.2 | (missing) | (missing) | | (unavailable | 01:30:08 | [facility] | | | | + + + +-------+ + + + + | Result panel 17 | + + + + + +--------+ + + | | 2022-09-13 | [facility] | 13.0 | (missing) | (missing) | | (unavailable | 01:30:08 | [facility] | | | | + + + +--------+ + + + + | Result panel 18 | + + + + + +--------+ + + | | 2022-09-13 | [facility] | 1.03 | (missing) | (missing) | | (unavailable | 01:30:08 | [facility] | | | | + + + +--------+ + + + + | Result panel 19 | + + + + + +--------+ + + | | 2022-09-13 | [facility] | 26.2 | (missing) | (missing) | | (unavailable | 01:30:08 | [facility] | | | | + + + +--------+ + + + + | Result panel 20 | + + + + + +------+---------+ + | | 2022-09-13 | [facility] | 99 | mg/dL | (missing) | | (unavailable | 01:30:08 | [facility] | | | | + + + +------+---------+ + + + | Result panel 21 | + + + + + +------+---------+ + | | 2022-09-13 | [facility] | 14 | mg/dL | (missing) | | (unavailable | 01:30:08 | [facility] | | | | + + + +------+---------+ + + + | Result panel 22 | + + + + + +--------+---------+ + | | 2022-09-13 | [facility] | 1.03 | mg/dL | (missing) | | (unavailable | 01:30:08 | [facility] | | | | + + + +--------+---------+ + + + | Result panel 23 | + + + + + +------+ + + | | 2022-09-13 | [facility] | 88 | (missing) | (missing) | | (unavailable | 01:30:08 | [facility] | | | | + + + +------+ + + + + | Result panel 24 | + + + + + +---------+ + + | | 2022-09-13 | [facility] | 13.59 | (missing) | (missing) | | (unavailable | 01:30:08 | [facility] | | | | + + + +---------+ + + + + | Result panel 25 | + + + + + +-------+ + + | | 2022-09-13 | [facility] | 142 | (missing) | (missing) | | (unavailable | 01:30:08 | [facility] | | | | + + + +-------+ + + + + | Result panel 26 | + + + + + +-------+ + + | | 2022-09-13 | [facility] | 4.1 | (missing) | (missing) | | (unavailable | 01:30:08 | [facility] | | | | + + + +-------+ + + + + | Result panel 27 | + + + + + +-------+ + + | | 2022-09-13 | [facility] | 100 | (missing) | (missing) | | (unavailable | 01:30:08 | [facility] | | | | + + + +-------+ + + + + | Result panel 28 | + + + + + +------+ + + | | 2022-09-13 | [facility] | 22 | (missing) | (missing) | | (unavailable | 01:30:08 | [facility] | | | | + + + +------+ + + + + | Result panel 29 | + + + + + +--------+ + + | | 2022-09-13 | [facility] | 24.1 | (missing) | (missing) | | (unavailable | 01:30:08 | [facility] | | | | + + + +--------+ + + + + | Result panel 30 | + + + + + +-------+---------+ + | | 2022-09-13 | [facility] | 9.5 | mg/dL | (missing) | | (unavailable | 01::08 | [facility] | | | | + + + +-------+---------+ + + + | Result panel 31 | + + + + + +-------+ + + | | 2022-09-13 | [facility] | 7.7 | (missing) | (missing) | | (unavailable | 01:30:08 | [facility] | | | | + + + +-------+ + + + + | Result panel 32 | + + + + + +-------+ + + | | 2022-09-13 | [facility] | 4.5 | (missing) | (missing) | | (unavailable | 01::08 | [facility] | | | | + + + +-------+ + + + + | Result panel 33 | + + + + + +-------+ + + | | 2022-09-13 | [facility] | 3.2 | (missing) | (missing) | | (unavailable | ::08 | [facility] | | | | + + + +-------+ + + + + | Result panel 34 | + + + + + +--------+ + + | | 2022-09-13 | [facility] | 1.41 | (missing) | (missing) | | (unavailable | 01:30:08 | [facility] | | | | + + + +--------+ + + + + | Result panel 35 | + + + + + +-------+ + + | | 2022-09-13 | [facility] | 0.5 | (missing) | (missing) | | (unavailable | 01:30:08 | [facility] | | | | + + + +-------+ + + + + | Result panel 36 | + + + + + +------+ + + | | 2022-09-13 | [facility] | 56 | (missing) | (missing) | | (unavailable | 01:30:08 | [facility] | | | | + + + +------+ + + + + | Result panel 37 | + + + + + +-------+ + + | | 2022-09-13 | [facility] | 112 | (missing) | (missing) | | (unavailable | 01:30:08 | [facility] | | | | + + + +-------+ + + + + | Result panel 38 | + + + + + +------+ + + | | 2022-09-13 | [facility] | 64 | (missing) | (missing) | | (unavailable | 01:30:08 | [facility] | | | | + + + +------+ + + + + | Result panel 39 | + + + + + +-----+ + + | | 2022-09-13 | [facility] | 0 | (missing) | (missing) | | (unavailable | 01:30:08 | [facility] | | | | + + + +-----+ + + + + | Result panel 40 | + + + + + +------+ + + | | 2022-09-13 | [facility] | // | (missing) | (missing) | | (unavailable | 01:30:08 | [facility] | | | | + + + +------+ + + + + | Result panel 41 | + + + + + +-------+ + + | | 2022-09-13 | [facility] | 165 | (missing) | (missing) | | (unavailable | 01:30:08 | [facility] | | | | + + + +-------+ + + + + | Result panel 42 | + + + + + +-----+ + + | | 2022-09-13 | [facility] | 0 | (missing) | (missing) | | (unavailable | 01:30:08 | [facility] | | | | + + + +-----+ + + + + | Result panel 43 | + + + + + +------+ + + | | 2022-09-13 | [facility] | // | (missing) | (missing) | | (unavailable | 01:30:08 | [facility] | | | | + + + +------+ + + + + | Result panel 44 | + + + + + + + + + | Urinalysis | 2022-09-13 | [facility] | CLEAN CATCH | (missing) | (missing) | | specimen | 04:26 | [facility] collection | | Hospital | | | | | method | | | | | | + + + + + + + + + | Result panel 45 | + + + + + + + + + | | 2022-09-13 | [facility] | YELLOW | (missing) | (missing) | | (unavailable | 04:26:08 | [facility] | | | | + + + + + + + + + | Result panel 46 | + + + + + +---------+ + + | | 2022-09-13 | [facility] | CLEAR | (missing) | (missing) | | (unavailable | 04:26:08 | [facility] | | | | + + + +---------+ + + + + | Result panel 47 | + + + + + + + + + | | 2022-09-13 | [facility] | NEGATIVE | (missing) | (missing) | | (unavailable | 04:26:08 | [facility] | [facility] | | | | + + + + + + + + + | Result panel 48 | + + + + + + + + + | | 2022-09-13 | [facility] | NEGATIVE | (missing) | (missing) | | (unavailable | 04:26:08 | [facility] | | | | + + + + + + + + + | Result panel 49 | + + + + + +---------+ + + | | 2022-09-13 | [facility] | SMALL | (missing) | (missing) | | (unavailable | 04:26:08 | [facility] | | | | + + + +---------+ + + + + | Result panel 50 | + + + + + + + + + | | 2022-09-13 | [facility] | >=1.030 | (missing) | (missing) | | (unavailable | 04:26:08 | [facility] | | | | + + + + + + + + + | Result panel 51 | + + + + + +---------+ + + | | 2022-09-13 | [facility] | SMALL | (missing) | (missing) | | (unavailable | 04:26:08 | [facility] | | | | + + + +---------+ + + + + | Result panel 52 | + + + + + +-------+ + + | | 2022-09-13 | [facility] | 6.0 | (missing) | (missing) | | (unavailable | 04:26:08 | [facility] | | | | + + + +-------+ + + + + | Result panel 53 | + + + + + +-------+ + + | | 2022-09-13 | [facility] | 100 | (missing) | (missing) | | (unavailable | 04:26:08 | [facility] | | | | + + + +-------+ + + + + | Result panel 54 | + + + + + + + + + | | 2022-09-13 | [facility] | NORMAL | (missing) | (missing) | | (unavailable | 04:26:08 | [facility] | | | | + + + + + + + + + | Result panel 55 | + + + + + + + + + | | 2022-09-13 | [facility] | NEGATIVE | (missing) | (missing) | | (unavailable | 04:26:08 | [facility] | | | | + + + + + + + + + | Result panel 56 | + + + + + + + + + | | 2022-09-13 | [facility] | NEGATIVE | (missing) | (missing) | | (unavailable | 04:26:08 | [facility] | | | | + + + + + + + + + | Result panel 57 | + + + + + +-------+ + + | | 2022-09-13 | [facility] | 2-3 | (missing) | (missing) | | (unavailable | 04:26:08 | [facility] | | | | + + + +-------+ + + + + | Result panel 58 | + + + + + +-------+ + + | | 2022-09-13 | [facility] | 0-1 | (missing) | (missing) | | (unavailable | 04:26:08 | [facility] | | | | + + + +-------+ + + + + | Result panel 59 | + + + + + + + + + | | 2022-09-13 | [facility] | NONE SEEN | (missing) | (missing) | | (unavailable | 04:26:08 | [facility] | | | | + + + + + + + + + | Result panel 60 | + + + + + + + + + | | 2022-09-13 | [facility] | AMORPHOUS | (missing) | (missing) | | (unavailable | 04:26:08 | [facility] MEAGHAN 1+ | | | | ) | | [facility] | | | | + + + + + + + + + | Result panel 61 | + + + + + +--------+ + + | | 2022-09-13 | [facility] | RARE | (missing) | (missing) | | (unavailable | 04:26:08 | [facility] | | | | + + + +--------+ + + + + | Result panel 62 | + + + + + + + + + | | 2022-09-13 | [facility] | HYALINE 1+ | (missing) | (missing) | | (unavailable | 04:26:08 | [facility] | | | | + + + + + + + + + | Result panel 63 | + + + + + +------+ + + | | 2022-09-13 | [facility] | No | (missing) | (missing) | | (unavailable | 04::08 | [facility] | | | | + + + +------+ + + + + | Result panel 64 | + + + + + + + + + | | 2022-09-13 | [facility] | CLEAN CATCH | (missing) | (missing) | | (unavailable | 04:26:08 | [facility] | | | | + + + + + + + + + | Result panel 65 | + + + + + + + + + | | 2022-09-13 | [facility] | POSITIVE | (missing) | (missing) | | (unavailable | 04:26:08 | [facility] | | | | + + + + + + + + + | Result panel 66 | + + + + + + + + + | | 2022-09-13 | [facility] | NEGATIVE | (missing) | (missing) | | (unavailable | 04::08 | [facility] | | | | + + + + + + + + + | Result panel 67 | + + + + + + + + + | | 2022-09-13 | [facility] | NEGATIVE | (missing) | (missing) | | (unavailable | 04:26:08 | [facility] | | | | + + + + + + + + + | Result panel 68 | + + + + + + + + + | | 2022-09-13 | [facility] | NEGATIVE | (missing) | (missing) | | (unavailable | 04:26:08 | [facility] | | | | + + + + + + + + + | Result panel 69 | + + + + + + + + + | | 2022-09-13 | [facility] | NEGATIVE | (missing) | (missing) | | (unavailable | 04:26:08 | [facility] | | | | + + + + + + + + + | Result panel 70 | + + + + + + + + + | | 2022-09-13 | [facility] | NEGATIVE | (missing) | (missing) | | (unavailable | 04:26:08 | [facility] | | | | + + + + + + + + + | Result panel 71 | + + + + + + + + + | | 2022-09-13 | [facility] | NEGATIVE | (missing) | (missing) | | (unavailable | 04:26:08 | [facility] | | | | + + + + + + + + + | Result panel 72 | + + + + + + + + + | | 2022-09-13 | [facility] | NEGATIVE | (missing) | (missing) | | (unavailable | 04:26:08 | [facility] | | | | + + + + + + + + + | Result panel 73 | + + + + + + + + + | | 2022-09-13 | [facility] | NEGATIVE | (missing) | (missing) | | (unavailable | 04:26:08 | [facility] | | | | + + + + + + + + + | Result panel 74 | + + + + + + + + + | | 2022-09-13 | [facility] | NEGATIVE | (missing) | (missing) | | (unavailable | 04:26:08 | [facility] | | | | + + + + + + + + + | Result panel 75 | + + + + + + + + + | | 2022-09-13 | [facility] | NEGATIVE | (missing) | (missing) | | (unavailable | 04:26:08 | [facility] | | | | + + + + + + + + + | Result panel 76 | + + + + + + + + + | | 2022-09-13 | [facility] | NEGATIVE | (missing) | (missing) | | (unavailable | 04:26:08 | [facility] | | | | + + + + + + + + + | Result panel 77 | + + + + + + + + + | | 2022-09-13 | [facility] | NEGATIVE | (missing) | (missing) | | (unavailable | 04:26:08 | [facility] | | | | + + + + + + + + + | Result panel 78 | + + + + + + + + + | | 2022-09-13 | [facility] | CLEAN CATCH | (missing) | (missing) | | (unavailable | 04:26:08 | [facility] | | | | + + + + + + + + + | Result panel 79 | + + + + + +-------+ + + | | 2022-09-14 | [facility] | 9.9 | (missing) | (missing) | | (unavailable | 00:08:08 | [facility] | | | | + + + +-------+ + + + + | Result panel 80 | + + + + + +--------+ + + | | 2022-09-14 | [facility] | 4.30 | (missing) | (missing) | | (unavailable | 00:08:08 | [facility] | | | | + + + +--------+ + + + + | Result panel 81 | + + + + + +--------+ + + | | 2022-09-14 | [facility] | 13.0 | (missing) | (missing) | | (unavailable | 00:08:08 | [facility] | | | | + + + +--------+ + + + + | Result panel 82 | + + + + + +--------+ + + | | 2022-09-14 | [facility] | 38.7 | (missing) | (missing) | | (unavailable | 00:08:08 | [facility] | | | | + + + +--------+ + + + + | Result panel 83 | + + + + + +--------+ + + | | 2022-09-14 | [facility] | 90.0 | (missing) | (missing) | | (unavailable | 00:08:08 | [facility] | | | | + + + +--------+ + + + + | Result panel 84 | + + + + + +--------+ + + | | 2022-09-14 | [facility] | 30.3 | (missing) | (missing) | | (unavailable | 00:08:08 | [facility] | | | | + + + +--------+ + + + + | Result panel 85 | + + + + + +--------+ + + | | 2022-09-14 | [facility] | 33.6 | (missing) | (missing) | | (unavailable | 00:08:08 | [facility] | | | | + + + +--------+ + + + + | Result panel 86 | + + + + + +--------+ + + | | 2022-09-14 | [facility] | 18.0 | (missing) | (missing) | | (unavailable | 00::08 | [facility] | | | | + + + +--------+ + + + + | Result panel 87 | + + + + + +-------+ + + | | 2022-09-14 | [facility] | 225 | (missing) | (missing) | | (unavailable | 00:08:08 | [facility] | | | | + + + +-------+ + + + + | Result panel 88 | + + + + + +--------+ + + | | 2022-09-14 | [facility] | 70.8 | (missing) | (missing) | | (unavailable | 00:08:08 | [facility] | | | | + + + +--------+ + + + + | Result panel 89 | + + + + + +--------+ + + | | 2022-09-14 | [facility] | 21.2 | (missing) | (missing) | | (unavailable | 00:08:08 | [facility] | | | | + + + +--------+ + + + + | Result panel 90 | + + + + + +-------+ + + | | 2022-09-14 | [facility] | 7.4 | (missing) | (missing) | | (unavailable | 00:08:08 | [facility] | | | | + + + +-------+ + + + + | Result panel 91 | + + + + + +-------+ + + | | 2022-09-14 | [facility] | 0.4 | (missing) | (missing) | | (unavailable | 00:08:08 | [facility] | | | | + + + +-------+ + + + + | Result panel 92 | + + + + + +-------+ + + | | 2022-09-14 | [facility] | 0.2 | (missing) | (missing) | | (unavailable | 00:08:08 | [facility] | | | | + + + +-------+ + + + + | Result panel 93 | + + + + + +--------+ + + | | 2022-09-14 | [facility] | 13.5 | (missing) | (missing) | | (unavailable | 00:08:08 | [facility] | | | | + + + +--------+ + + + + | Result panel 94 | + + + + + +--------+ + + | | 2022-09-14 | [facility] | 1.08 | (missing) | (missing) | | (unavailable | 00:08:08 | [facility] | | | | + + + +--------+ + + + + | Result panel 95 | + + + + + +--------+ + + | | 2022-09-14 | [facility] | 29.1 | (missing) | (missing) | | (unavailable | 00:08:08 | [facility] | | | | + + + +--------+ + + + + | Result panel 96 | + + + + + +------+---------+ + | | 2022-09-14 | [facility] | 93 | mg/dL | (missing) | | (unavailable | 00:08:08 | [facility] | | | | + + + +------+---------+ + + + | Result panel 97 | + + + + + +------+---------+ + | | 2022-09-14 | [facility] | 13 | mg/dL | (missing) | | (unavailable | 00:08:08 | [facility] | | | | + + + +------+---------+ + + + | Result panel 98 | + + + + + +--------+---------+ + | | 2022-09-14 | [facility] | 0.83 | mg/dL | (missing) | | (unavailable | 00:08:08 | [facility] | | | | + + + +--------+---------+ + + + | Result panel 99 | + + + + + +-------+ + + | | 2022-09-14 | [facility] | 106 | (missing) | (missing) | | (unavailable | 00:08:08 | [facility] | | | | + + + +-------+ + + + + | Result panel 100 | + + + + + +---------+ + + | | 2022-09-14 | [facility] | 15.66 | (missing) | (missing) | | (unavailable | 00:08:08 | [facility] | | | | + + + +---------+ + + + + | Result panel 101 | + + + + + +-------+ + + | | 2022-09-14 | [facility] | 139 | (missing) | (missing) | | (unavailable | 00:08:08 | [facility] | | | | + + + +-------+ + + + + | Result panel 102 | + + + + + +-------+ + + | | 2022-09-14 | [facility] | 3.9 | (missing) | (missing) | | (unavailable | 00:08:08 | [facility] | | | | + + + +-------+ + + + + | Result panel 103 | + + + + + +------+ + + | | 2022-09-14 | [facility] | 99 | (missing) | (missing) | | (unavailable | 00:08:08 | [facility] | | | | + + + +------+ + + + + | Result panel 104 | + + + + + +------+ + + | | 2022-09-14 | [facility] | 26 | (missing) | (missing) | | (unavailable | 00:08:08 | [facility] | | | | + + + +------+ + + + + | Result panel 105 | + + + + + +--------+ + + | | 2022-09-14 | [facility] | 17.9 | (missing) | (missing) | | (unavailable | 00:08:08 | [facility] | | | | + + + +--------+ + + + + | Result panel 106 | + + + + + +-------+---------+ + | | 2022-09-14 | [facility] | 9.0 | mg/dL | (missing) | | (unavailable | 00:08:08 | [facility] | | | | + + + +-------+---------+ + + + | Result panel 107 | + + + + + +-------+ + + | | 2022-09-14 | [facility] | 7.5 | (missing) | (missing) | | (unavailable | 00:08:08 | [facility] | | | | | ) | | [facility] | | | | + + + +-------+ + + + + | Result panel 108 | + + + + + +-------+ + + | | 2022-09-14 | [facility] | 4.2 | (missing) | (missing) | | (unavailable | 00:08:08 | [facility] | | | | + + + +-------+ + + + + | Result panel 109 | + + + + + +-------+ + + | | 2022-09-14 | [facility] | 3.3 | (missing) | (missing) | | (unavailable | 00:08:08 | [facility] | | | | + + + +-------+ + + + + | Result panel 110 | + + + + + +--------+ + + | | 2022-09-14 | [facility] | 1.27 | (missing) | (missing) | | (unavailable | 00:08:08 | [facility] | | | | + + + +--------+ + + + + | Result panel 111 | + + + + + +-------+ + + | | 2022-09-14 | [facility] | 1.1 | (missing) | (missing) | | (unavailable | 00:08:08 | [facility] | | | | + + + +-------+ + + + + | Result panel 112 | + + + + + +------+ + + | | 2022-09-14 | [facility] | 43 | (missing) | (missing) | | (unavailable | 00:08:08 | [facility] | | | | + + + +------+ + + + + | Result panel 113 | + + + + + +------+ + + | | 2022-09-14 | [facility] | 81 | (missing) | (missing) | | (unavailable | 00:08:08 | [facility] | | | | + + + +------+ + + + + | Result panel 114 | + + + + + +------+ + + | | 2022-09-14 | [facility] | 56 | (missing) | (missing) | | (unavailable | 00:08:08 | [facility] | | | | + + + +------+ + + + + | Result panel 115 | + + + + + +-------+ + + | | 2022-09-14 | [facility] | 116 | (missing) | (missing) | | (unavailable | 00:08:08 | [facility] | | | | + + + +-------+ + + + + | Result panel 116 | + + + + + + + + + | | 2022-09-14 | [facility] | YELLOW | (missing) | (missing) | | (unavailable | 00:55:08 | [facility] | | | | + + + + + + + + + | Result panel 117 | + + + + + +---------+ + + | | 2022-09-14 | [facility] | CLEAR | (missing) | (missing) | | (unavailable | 00:55:08 | [facility] | | | | + + + +---------+ + + + + | Result panel 118 | + + + + + + + + + | | 2022-09-14 | [facility] | NEGATIVE | (missing) | (missing) | | (unavailable | 00:55:08 | [facility] | | | | + + + + + + + + + | Result panel 119 | + + + + + + + + + | | 2022-09-14 | [facility] | NEGATIVE | (missing) | (missing) | | (unavailable | 00:55:08 | [facility] | | | | + + + + + + + + + | Result panel 120 | + + + + + +---------+ + + | | 2022-09-14 | [facility] | SMALL | (missing) | (missing) | | (unavailable | 00:55:08 | [facility] | | | | + + + +---------+ + + + + | Result panel 121 | + + + + + +---------+ + + | | 2022-09-14 | [facility] | 1.015 | (missing) | (missing) | | (unavailable | 00:55:08 | [facility] | | | | + + + +---------+ + + + + | Result panel 122 | + + + + + +---------+ + + | | 2022-09-14 | [facility] | SMALL | (missing) | (missing) | | (unavailable | 00:55:08 | [facility] | | | | + + + +---------+ + + + + | Result panel 123 | + + + + + +-------+ + + | | 2022-09-14 | [facility] | 6.0 | (missing) | (missing) | | (unavailable | 00:55:08 | [facility] | | | | + + + +-------+ + + + + | Result panel 124 | + + + + + +------+ + + | | 2022-09-14 | [facility] | 30 | (missing) | (missing) | | (unavailable | 00:55:08 | [facility] | | | | + + + +------+ + + + + | Result panel 125 | + + + + + + + + + | | 2022-09-14 | [facility] | NORMAL | (missing) | (missing) | | (unavailable | 00:55:08 | [facility] | | | | + + + + + + + + + | Result panel 126 | + + + + + + + + + | | 2022-09-14 | [facility] | NEGATIVE | (missing) | (missing) | | (unavailable | 00:55:08 | [facility] | | | | + + + + + + + + + | Result panel 127 | + + + + + + + + + | | 2022-09-14 | [facility] | NEGATIVE | (missing) | (missing) | | (unavailable | 00:55:08 | [facility] | | | | + + + + + + + + + | Result panel 128 | + + + + + +--------+ + + | | 2022-09-14 | [facility] | 7-11 | (missing) | (missing) | | (unavailable | 00:55:08 | [facility] | | | | + + + +--------+ + + + + | Result panel 129 | + + + + + +-------+ + + | | 2022-09-14 | [facility] | 4-6 | (missing) | (missing) | | (unavailable | 00:55:08 | [facility] | | | | + + + +-------+ + + + + | Result panel 130 | + + + + + + + + + | | 2022-09-14 | [facility] | NONE SEEN | (missing) | (missing) | | (unavailable | 00:55:08 | [facility] | | | | + + + + + + + + + | Result panel 131 | + + + + + + + + + | | 2022-09-14 | [facility] | NONE SEEN | (missing) | (missing) | | (unavailable | 00:55:08 | [facility] | | | | + + + + + + + + + | Result panel 132 | + + + + + +--------+ + + | | 2022-09-14 | [facility] | RARE | (missing) | (missing) | | (unavailable | 00:55:08 | [facility] | | | | + + + +--------+ + + + + | Result panel 133 | + + + + + + + + + | | 2022-09-14 | [facility] | HYALINE 1+ | (missing) | (missing) | | (unavailable | 00:55:08 | [facility] | | | | + + + + + + + + + | Result panel 134 | + + + + + + + + + | | 2022-09-14 | [facility] | GRANULAR 1+ | (missing) | (missing) | | (unavailable | 00:55:08 | [facility] | | | | + + + + + + + + + | Result panel 135 | + + + + + +------+ + + | | 2022-09-14 | [facility] | No | (missing) | (missing) | | (unavailable | 00:55:08 | [facility] | | | | + + + +------+ + + + + | Result panel 136 | + + + + + + + + + | | 2022-09-14 | [facility] | POSITIVE | (missing) | (missing) | | (unavailable | 00:55:08 | [facility] | | | | + + + + + + + + + | Result panel 137 | + + + + + + + + + | | 2022-09-14 | [facility] | NEGATIVE | (missing) | (missing) | | (unavailable | 00:55:08 | [facility] | | | | + + + + + + + + + | Result panel 138 | + + + + + + + + + | | 2022-09-14 | [facility] | NEGATIVE | (missing) | (missing) | | (unavailable | 00:55:08 | [facility] | | | | + + + + + + + + + | Result panel 139 | + + + + + + + + + | | 2022-09-14 | [facility] | NEGATIVE | (missing) | (missing) | | (unavailable | 00:55:08 | [facility] | | | | + + + + + + + + + | Result panel 140 | + + + + + + + + + | | 2022-09-14 | [facility] | NEGATIVE | (missing) | (missing) | | (unavailable | 00:55:08 | [facility] | | | | + + + + + + + + + | Result panel 141 | + + + + + + + + + | | 2022-09-14 | [facility] | NEGATIVE | (missing) | (missing) | | (unavailable | 00:55:08 | [facility] | | | | + + + + + + + + + | Result panel 142 | + + + + + + + + + | | 2022-09-14 | [facility] | NEGATIVE | (missing) | (missing) | | (unavailable | 00:55:08 | [facility] | | | | + + + + + + + + + | Result panel 143 | + + + + + + + + + | | 2022-09-14 | [facility] | NEGATIVE | (missing) | (missing) | | (unavailable | 00:55:08 | [facility] | | | | + + + + + + + + + | Result panel 144 | + + + + + + + + + | | 2022-09-14 | [facility] | NEGATIVE | (missing) | (missing) | | (unavailable | 00:55:08 | [facility] | | | | + + + + + + + + + | Result panel 145 | + + + + + + + + + | | 2022-09-14 | [facility] | NEGATIVE | (missing) | (missing) | | (unavailable | 00:55:08 | [facility] | | | | + + + + + + + + + | Result panel 146 | + + + + + + + + + | | 2022-09-14 | [facility] | NEGATIVE | (missing) | (missing) | | (unavailable | 00:55:08 | [facility] | | | | + + + + + + + + + | Result panel 147 | + + + + + + + + + | | 2022-09-14 | [facility] | NEGATIVE | (missing) | (missing) | | (unavailable | 00:55:08 | [facility] | | | | + + + + + + + + + | Result panel 148 | + + + + + + + + + | | 2022-09-14 | [facility] | NEGATIVE | (missing) | (missing) | | (unavailable | 00:55:08 | [facility] | | | | + + + + + + + + + | Result panel 149 | + + + + + +------+ + + | Manual | 2022-10-13 | [facility] | 82 | (missing) | (missing) | | blood | 11:05 | [facility] | | | | | segmented | | [facility] | | | | | neutrophils/ | | | | | | | 100 | | | | | | | leukocytes | | | | | | + + + +------+ + + + + | Result panel 150 | + + + + + +-----+ + + | Manual | 2022-10-13 | [facility] | 4 | (missing) | (missing) | | blood | 11:05 | [facility] | | | | | lymphocytes/ | | [facility] | | | | | 100 | | | | | | | leukocytes | | | | | | + + + +-----+ + + + + | Result panel 151 | + + + + + +-----+ + + | Manual | 2022-10-13 | [facility] | 9 | (missing) | (missing) | | blood | 11:05 | [facility] | | | | | monocytes/10 | | [facility] | | | | | 0 leukocytes | | | | | | | | | | | | | + + + +-----+ + + + + | Result panel 152 | + + + + + +-----+ + + | Manual | 2022-10-13 | [facility] | 4 | (missing) | (missing) | | blood band | 11:05 | [facility] | | | | | neutrophils | | [facility] | | | | | form/100 | | | | | | | leukocytes | | | | | | + + + +-----+ + + + + | Result panel 153 | + + + + + + + + + | Blood | 2022-10-13 | [facility] | PRESENT | (missing) | (missing) | | anisocytosis | 11:05 | [facility] | | | | | detection | | Hospital | | | | | by light | | | | | | | microscopy | | | | | | + + + + + + + + + | Result panel 154 | + + + + + + + + + | | 2022-10-13 | [facility] | PRESENT | (missing) | (missing) | | Hypochromati | 11:05 | [facility] | | | | | c red blood | | Hospital | | | | | cell | | | | | | | detection | | | | | | + + + + + + + + + | Result panel 155 | + + + + + + + + + | Blood | 2022-10-13 | [facility] | PRESENT | (missing) | (missing) | | vacuolated | 11:05 | [facility] | | | | | neutrophils | | [facility] | | | | | detection by | | | | | | | light | | | | | | | microscopy | | | | | | + + + + + + + + + | Result panel 156 | + + + + + +-------+ + + | Serum or | 2022-10-13 | [facility] | 8.4 | (missing) | (missing) | | plasma | 11:05 | [facility] | | | | | protein | | [facility] | | | | | measurement | | | | | | | (mass/volume | | | | | | | ) | | | | | | + + + +-------+ + + + + | Result panel 157 | + + + + + +-------+ + + | Serum or | 2022-10-13 | [facility] | 4.7 | (missing) | (missing) | | plasma | 11:05 | [facility] | | | | | albumin | | [facility] | | | | | measurement | | | | | | | (mass/volume | | | | | | | ) | | | | | | + + + +-------+ + + + + | Result panel 158 | + + + + + +-------+ + + | Serum | 2022-10-13 | [facility] | 3.7 | (missing) | (missing) | | globulin | 11:05 | [facility] | | | | | measurement | | [facility] | | | | | (mass/volume | | | | | | | ) | | | | | | + + + +-------+ + + + + | Result panel 159 | + + + + + +--------+ + + | Serum or | 2022-10-13 | [facility] | 1.27 | (missing) | (missing) | | plasma | 11:05 | [facility] | | | | | albumin/glob | | [facility] | | | | | ulin mass | | | | | | | ratio | | | | | | + + + +--------+ + + + + | Result panel 160 | + + + + + +-------+ + + | Serum or | 2022-10-13 | [facility] | 0.5 | (missing) | (missing) | | plasma total | 11:05 | [facility] | | | | | bilirubin | | [facility] | | | | | measurement | | | | | | | (mass/volume | | | | | | | ) | | | | | | + + + +-------+ + + + + | Result panel 161 | + + + + + +------+ + + | Serum or | 2022-10-13 | [facility] | 49 | (missing) | (missing) | | plasma | 11:05 | [facility] | | | | | aspartate | | Hospital | | | | | aminotransfe | | | | | | | rase | | | | | | | measurement | | | | | | | (enzymatic | | | | | | | activity/vol | | | | | | | ume) | | | | | | + + + +------+ + + + + | Result panel 162 | + + + + + +------+ + + | Serum or | 2022-10-13 | [facility] | 46 | (missing) | (missing) | | plasma | 11:05 | [facility] | | | | | alanine | | Hospital | | | | | aminotransfe | | | | | | | rase | | | | | | | measurement | | | | | | | (enzymatic | | | | | | | activity/vol | | | | | | | ume) | | | | | | + + + +------+ + + + + | Result panel 163 | + + + + + +------+ + + | Serum or | 2022-10-13 | [facility] | 75 | (missing) | (missing) | | plasma | 11:05 | [facility] | | | | | alkaline | | [facility] | | | | | phosphatase | | | | | | | measurement | | | | | | | (enzymatic | | | | | | | activity/vol | | | | | | | ume) | | | | | | + + + +------+ + + + + | Result panel 164 | + + + + + +-----+ + + | Serum or | 2022-10-13 | [facility] | 8 | (missing) | (missing) | | plasma | 11:05 | [facility] | | | | | ethanol | | Hospital | | | | | measurement | | | | | | | (moles/volum | | | | | | | e) | | | | | | + + + +-----+ + + + + | Result panel 165 | + + + + + +------+ + + | | 2022-10-13 | [facility] | 82 | (missing) | (missing) | | (unavailable | 11:05:07 | [facility] | | [facility] ) | | [facility] | | | | + + + +------+ + + + + | Result panel 166 | + + + + + +-----+ + + | | 2022-10-13 | [facility] | 4 | (missing) | (missing) | | (unavailable | 11:05:07 | [facility] | [facility] ) | | [facility] | | | | + + + +-----+ + + + + | Result panel 167 | + + + + + +-----+ + + | | 2022-10-13 | [facility] | 9 | (missing) | (missing) | | (unavailable | 11:05:07 | [facility] ) | | [facility] | | | | + + + +-----+ + + + + | Result panel 168 | + + + + + +-----+ + + | | 2022-10-13 | [facility] | 4 | (missing) | (missing) | | (unavailable | 11:05:07 | [facility] ) | | [facility] | | | | + + + +-----+ + + + + | Result panel 169 | + + + + + + + + + | | 2022-10-13 | [facility] | PRESENT | (missing) | (missing) | | (unavailable | 11:05:07 | [facility] | | [facility] | | | | + + + + + + + + + | Result panel 170 | + + + + + + + + + | | 2022-10-13 | [facility] | PRESENT | (missing) | (missing) | | (unavailable | 11:05:07 | [facility] | | [facility] | | | | + + + + + + + + + | Result panel 171 | + + + + + + + + + | | 2022-10-13 | [facility] | PRESENT | (missing) | (missing) | | (unavailable | 11:05:07 | [facility] | | [facility] | | | | + + + + + + + + + | Result panel 172 | + + + + + +-------+ + + | | 2022-10-13 | [facility] | 8.4 | (missing) | (missing) | | (unavailable | 11:05:07 | [facility] | | [facility] | | | | + + + +-------+ + + + + | Result panel 173 | + + + + + +-------+ + + | | 2022-10-13 | [facility] | 4.7 | (missing) | (missing) | | (unavailable | 11:05:07 | [facility] | [facility] | | | | + + + +-------+ + + + + | Result panel 174 | + + + + + +-------+ + + | | 2022-10-13 | [facility] | 3.7 | (missing) | (missing) | | (unavailable | 11:05:07 | [facility] | | | | + + + +-------+ + + + + | Result panel 175 | + + + + + +--------+ + + | | 2022-10-13 | [facility] | 1.27 | (missing) | (missing) | | (unavailable | 11:05:07 | [facility] | | | | + + + +--------+ + + + + | Result panel 176 | + + + + + +-------+ + + | | 2022-10-13 | [facility] | 0.5 | (missing) | (missing) | | (unavailable | 11:05:07 | [facility] | | | | + + + +-------+ + + + + | Result panel 177 | + + + + + +------+ + + | | 2022-10-13 | [facility] | 49 | (missing) | (missing) | | (unavailable | 11:05:07 | [facility] | [facility] | | | | + + + +------+ + + + + | Result panel 178 | + + + + + +------+ + + | | 2022-10-13 | [facility] | 46 | (missing) | (missing) | | (unavailable | 11:05:07 | [facility] | [facility] | | | | + + + +------+ + + + + | Result panel 179 | + + + + + +------+ + + | | 2022-10-13 | [facility] | 75 | (missing) | (missing) | | (unavailable | 11:05:07 | [facility] | | [facility] | | | | + + + +------+ + + + + | Result panel 180 | + + + + + +-----+ + + | | 2022-10-13 | [facility] | 8 | (missing) | (missing) | | (unavailable | 11:05:07 | [facility] | | [facility] | | [facility] | | | | + + + +-----+ + + + + | Result panel 181 | + + + + + + + + + | Color of | 2022-10-13 | [facility] | YELLOW | (missing) | (missing) | | Urine by | 11:48 | [facility] | | | | | Auto | | Hospital | | | | + + + + + + + + + | Result panel 182 | + + + + + +---------+ + + | Character | 2022-10-13 | [facility] | CLEAR | (missing) | (missing) | | of Urine | 11:48 | [facility] | | | | | | [facility] | | | | + + + +---------+ + + + + | Result panel 183 | + + + + + + + + + | Glucose | 2022-10-13 | [facility] | NEGATIVE | (missing) | (missing) | | [Presence] | 11:48 | [facility] | | | | | in Urine by | | Hospital | | | | | Test strip | | | | | | + + + + + + + + + | Result panel 184 | + + + + + + + + + | Urine total | 2022-10-13 | [facility] | NEGATIVE | (missing) | (missing) | | bilirubin | 11:48 | [facility] | | | | | detection by | | Hospital | | | | | test strip | | | | | | + + + + + + + + + | Result panel 185 | + + + + + +---------+ + + | Urine | 2022-10-13 | [facility] | SMALL | (missing) | (missing) | | ketones | 11:48 | [facility] | | | | | detection by | | Hospital | | | | | test strip | | | | | | + + + +---------+ + + + + | Result panel 186 | + + + + + + + + + | Specific | 2022-10-13 | [facility] | >=1.030 | (missing) | (missing) | | gravity ur | 11:48 | [facility] | | | | | dipstick | | [facility] | | | | + + + + + + + + + | Result panel 187 | + + + + + +---------+ + + | Urine | 2022-10-13 | [facility] | LARGE | (missing) | (missing) | | hemoglobin | 11:48 | [facility] | | | | | detection by | | Hospital | | | | | test strip | | | | | | + + + +---------+ + + + + | Result panel 188 | + + + + + +-------+ + + | Urine pH | 2022-10-13 | [facility] | 5.5 | (missing) | (missing) | | measurement | 11:48 | [facility] | | | | | by test | | Hospital | | | | | strip | | | | | | + + + +-------+ + + + + | Result panel 189 | + + + + + +-------+ + + | Protein | 2022-10-13 | [facility] | 100 | (missing) | (missing) | | urine test | 11:48 | [facility] | | | | | strip | | Hospital | | | | + + + +-------+ + + + + | Result panel 190 | + + + + + + + + + | | 2022-10-13 | [facility] | NORMAL | (missing) | (missing) | | Urobilinogen | 11:48 | [facility] | | | | | | [facility] | | | | | [Mass/volume | | | | | | | ] in Urine | | | | | | | by Test | | | | | | | strip | | | | | | + + + + + + + + + | Result panel 191 | + + + + + + + + + | Urine | 2022-10-13 | [facility] | NEGATIVE | (missing) | (missing) | | nitrite | 11:48 | [facility] | | | | | detection by | | Hospital | | | | | test strip | | | | | | + + + + + + + + + | Result panel 192 | + + + + + + + + + | Urine | 2022-10-13 | [facility] | NEGATIVE | (missing) | (missing) | | leukocyte | 11:48 | [facility] | | | | | esterase | | Hospital | | | | | detection by | | | | | | | dipstick | | | | | | + + + + + + + + + | Result panel 193 | + + + + + +-------+ + + | Automated | 2022-10-13 | [facility] | 4-6 | (missing) | (missing) | | urine | 11:48 | [facility] | | | | | sediment | | Hospital | | | | | erythrocyte | | | | | | | count by | | | | | | | microscopy | | | | | | | (number/high | | | | | | | power | | | | | | | field) | | | | | | + + + +-------+ + + + + | Result panel 194 | + + + + + +--------+ + + | Automated | 2022-10-13 | [facility] | 7-11 | (missing) | (missing) | | urine | 11:48 | [facility] | | | | | sediment | | Hospital | | | | | leukocyte | | | | | | | count by | | | | | | | microscopy | | | | | | | (number/high | | | | | | | power | | | | | | | field) | | | | | | + + + +--------+ + + + + | Result panel 195 | + + + + + +-----+ + + | Automated | 2022-10-13 | [facility] | 0 | (missing) | (missing) | | urine | 11:48 | [facility] | | | | | sediment | | Hospital | | | | | epithelial | | | | | | | cell count | | | | | | | by | | | | | | | microscopy | | | | | | | (number/high | | | | | | | power | | | | | | | field) | | | | | | + + + +-----+ + + + + | Result panel 196 | + + + + + + + + + | Crystal | 2022-10-13 | [facility] | NONE SEEN | (missing) | (missing) | | typing in | 11:48 | [facility] | | | | | urine | | Hospital | | | | | sediment by | | | | | | | light | | | | | | | microscopy | | | | | | + + + + + + + + + | Result panel 197 | + + + + + +------+ + + | Automated | 2022-10-13 | [facility] | 2+ | (missing) | (missing) | | urine | 11:48 | [facility] | | | | | sediment | | Hospital | | | | | bacteria | | | | | | | count by | | | | | | | microscopy | | | | | | | (number/high | | | | | | | power | | | | | | | field) | | | | | | + + + +------+ + + + + | Result panel 198 | + + + + + + + + + | Automated | 2022-10-13 | [facility] | GRANULAR 2+ | (missing) | (missing) | | casts count | 11:48 | [facility] | | | | | in urine | | Hospital | | | | | sediment by | | | | | | | microscopy | | | | | | | low power | | | | | | | field | | | | | | | (number/area | | | | | | | ) | | | | | | + + + + + + + + + | Result panel 199 | + + + + + +-------+ + + | Reflexive | 2022-10-13 | [facility] | Yes | (missing) | (missing) | | urine | 11:48 | [facility] | | | | | bacterial | | Hospital | | | | | culture | | | | | | + + + +-------+ + + + + | Result panel 200 | + + + + + +--------+ + + | Urinalysis | 2022-10-13 | [facility] | CATH | (missing) | (missing) | | specimen | 11:48 | [facility] | | | | | collection | | Hospital | | | | | method | | | | | | + + + +--------+ + + + + | Result panel 201 | + + + + + + + + + | Urine | 2022-10-13 | [facility] | POSITIVE | (missing) | (missing) | | [id number] | 11:48 | [facility] | | | | | ahydrocannab | | Hospital | | | | | inol (THC) | | | | | | | detection | | | | | | + + + + + + + + + | Result panel 202 | + + + + + + + + + | Urine | 2022-10-13 | [facility] | NEGATIVE | (missing) | (missing) | | amphetamines | 11:48 | [facility] | | | | | detection | | Hospital | | | | | by screening | | | | | | | method | | | | | | + + + + + + + + + | Result panel 203 | + + + + + + + + + | Urine | 2022-10-13 | [facility] | NEGATIVE | (missing) | (missing) | | barbiturates | 11:48 | [facility] | | | | | detection | | Hospital | | | | | by screening | | | | | | | method | | | | | | + + + + + + + + + | Result panel 204 | + + + + + + + + + | Urine | 2022-10-13 | [facility] | NEGATIVE | (missing) | (missing) | | benzodiazepi | 11:48 | [facility] | | | | | nora | | Hospital | | | | | detection by | | | | | | | screening | | | | | | | method | | | | | | + + + + + + + + + | Result panel 205 | + + + + + + + + + | Urine | 2022-10-13 | [facility] | NEGATIVE | (missing) | (missing) | | cocaine | 11:48 | [facility] | | | | | detection | | Hospital | | | | + + + + + + + + + | Result panel 206 | + + + + + + + + + | Screening | 2022-10-13 | [facility] | NEGATIVE | (missing) | (missing) | | urine | 11:48 | [facility] | | | | | tricyclic | | Hospital | | | | | antidepressa | | | | | | | nts | | | | | | | detection | | | | | | + + + + + + + + + | Result panel 207 | + + + + + + + + + | Urine | 2022-10-13 | [facility] | NEGATIVE | (missing) | (missing) | | phencyclidin | 11:48 | [facility] | | | | | e detection | | Hospital | | | | | by screening | | | | | | | method | | | | | | + + + + + + + + + | Result panel 208 | + + + + + + + + + | Urine | 2022-10-13 | [facility] | NEGATIVE | (missing) | (missing) | | opiates | 11:48 | [facility] | | | | | detection by | | Hospital | | | | | screening | | | | | | | method | | | | | | + + + + + + + + + | Result panel 209 | + + + + + + + + + | Urine | 2022-10-13 | [facility] | NEGATIVE | (missing) | (missing) | | methadone | 11:48 | [facility] | | | | | detection by | | Hospital | | | | | screening | | | | | | | method | | | | | | + + + + + + + + + | Result panel 210 | + + + + + + + + + | Urine | 2022-10-13 | [facility] | NEGATIVE | (missing) | (missing) | | methamphetam | 11:48 | [facility] | | | | | ine | | Hospital | | | | | detection by | | | | | | | screening | | | | | | | method | | | | | | + + + + + + + + + | Result panel 211 | + + + + + + + + + | Urine | 2022-10-13 | [facility] | NEGATIVE | (missing) | (missing) | | methylenedio | 11:48 | [facility] | | | | | xymethamphet | | Hospital | | | | | amine | | | | | | | detection by | | | | | | | screening | | | | | | | method | | | | | | + + + + + + + + + | Result panel 212 | + + + + + + + + + | Urine | 2022-10-13 | [facility] | NEGATIVE | (missing) | (missing) | | methylenedio | 11:48 | [facility] | | | | | xymethamphet | | Hospital | | | | | amine | | | | | | | detection by | | | | | | | screening | | | | | | | method | | | | | | + + + + + + + + + | Result panel 213 | + + + + + + + + + | Urine | 2022-10-13 | [facility] | NEGATIVE | (missing) | (missing) | | buprenorphin | 11:48 | [facility] | | | | | e detection | | Hospital | | | | + + + + + + + + + | Result panel 214 | + + + + + + + + + | | 2022-10-13 | [facility] | YELLOW | (missing) | (missing) | | (unavailable | 11:48:07 | [facility] | | | | | ) | | Hospital | | | | + + + + + + + + + | Result panel 215 | + + + + + +---------+ + + | | 2022-10-13 | [facility] | CLEAR | (missing) | (missing) | | (unavailable | 11:48:07 | [facility] | | | | | ) | | Hospital | | | | + + + +---------+ + + + + | Result panel 216 | + + + + + + + + + | | 2022-10-13 | [facility] | NEGATIVE | (missing) | (missing) | | (unavailable | 11:48:07 | [facility] | | | | + + + + + + + + + | Result panel 217 | + + + + + + + + + | | 2022-10-13 | [facility] | NEGATIVE | (missing) | (missing) | | (unavailable | 11:48:07 | [facility] | | | | + + + + + + + + + | Result panel 218 | + + + + + +---------+ + + | | 2022-10-13 | [facility] | SMALL | (missing) | (missing) | | (unavailable | 11:48:07 | [facility] | | | | + + + +---------+ + + + + | Result panel 219 | + + + + + + + + + | | 2022-10-13 | [facility] | >=1.030 | (missing) | (missing) | | (unavailable | 11:48:07 | [facility] | | | | + + + + + + + + + | Result panel 220 | + + + + + +---------+ + + | | 2022-10-13 | [facility] | LARGE | (missing) | (missing) | | (unavailable | 11:48:07 | [facility] | | | | + + + +---------+ + + + + | Result panel 221 | + + + + + +-------+ + + | | 2022-10-13 | [facility] | 5.5 | (missing) | (missing) | | (unavailable | 11:48:07 | [facility] | | | | + + + +-------+ + + + + | Result panel 222 | + + + + + +-------+ + + | | 2022-10-13 | [facility] | 100 | (missing) | (missing) | | (unavailable | 11:48:07 | [facility] | | | | + + + +-------+ + + + + | Result panel 223 | + + + + + + + + + | | 2022-10-13 | [facility] | NORMAL | (missing) | (missing) | | (unavailable | 11:48:07 | [facility] | | | | + + + + + + + + + | Result panel 224 | + + + + + + + + + | | 2022-10-13 | [facility] | NEGATIVE | (missing) | (missing) | | (unavailable | 11:48:07 | [facility] | | | | + + + + + + + + + | Result panel 225 | + + + + + + + + + | | 2022-10-13 | [facility] | NEGATIVE | (missing) | (missing) | | (unavailable | 11:48:07 | [facility] | | | | + + + + + + + + + | Result panel 226 | + + + + + +-------+ + + | | 2022-10-13 | [facility] | 4-6 | (missing) | (missing) | | (unavailable | 11:48:07 | [facility] | | | | + + + +-------+ + + + + | Result panel 227 | + + + + + +--------+ + + | | 2022-10-13 | [facility] | 7-11 | (missing) | (missing) | | (unavailable | 11:48:07 | [facility] | | | | + + + +--------+ + + + + | Result panel 228 | + + + + + +-----+ + + | | 2022-10-13 | [facility] | 0 | (missing) | (missing) | | (unavailable | 11:48:07 | [facility] | | | | + + + +-----+ + + + + | Result panel 229 | + + + + + + + + + | | 2022-10-13 | [facility] | NONE SEEN | (missing) | (missing) | | (unavailable | 11:48:07 | [facility] | | | | + + + + + + + + + | Result panel 230 | + + + + + +------+ + + | | 2022-10-13 | [facility] | 2+ | (missing) | (missing) | | (unavailable | 11:48:07 | [facility] | | | | + + + +------+ + + + + | Result panel 231 | + + + + + + + + + | | 2022-10-13 | [facility] | GRANULAR 2+ | (missing) | (missing) | | (unavailable | 11:48:07 | [facility] | | | | + + + + + + + + + | Result panel 232 | + + + + + +-------+ + + | | 2022-10-13 | [facility] | Yes | (missing) | (missing) | | (unavailable | 11:48:07 | [facility] | | | | + + + +-------+ + + + + | Result panel 233 | + + + + + +--------+ + + | | 2022-10-13 | [facility] | CATH | (missing) | (missing) | | (unavailable | 11:48:07 | [facility] | | | | + + + +--------+ + + + + | Result panel 234 | + + + + + + + + + | | 2022-10-13 | [facility] | POSITIVE | (missing) | (missing) | | (unavailable | 11:48:07 | [facility] | | | | + + + + + + + + + | Result panel 235 | + + + + + + + + + | | 2022-10-13 | [facility] | NEGATIVE | (missing) | (missing) | | (unavailable | 11:48:07 | [facility] | | | | + + + + + + + + + | Result panel 236 | + + + + + + + + + | | 2022-10-13 | [facility] | NEGATIVE | (missing) | (missing) | | (unavailable | 11:48:07 | [facility] | | | | + + + + + + + + + | Result panel 237 | + + + + + + + + + | | 2022-10-13 | [facility] | NEGATIVE | (missing) | (missing) | | (unavailable | 11:48:07 | [facility] | | | | + + + + + + + + + | Result panel 238 | + + + + + + + + + | | 2022-10-13 | [facility] | NEGATIVE | (missing) | (missing) | | (unavailable | 11:48:07 | [facility] | | | | + + + + + + + + + | Result panel 239 | + + + + + + + + + | | 2022-10-13 | [facility] | NEGATIVE | (missing) | (missing) | | (unavailable | 11:48:07 | [facility] | | | | + + + + + + + + + | Result panel 240 | + + + + + + + + + | | 2022-10-13 | [facility] | NEGATIVE | (missing) | (missing) | | (unavailable | 11:48:07 | [facility] | | | | + + + + + + + + + | Result panel 241 | + + + + + + + + + | | 2022-10-13 | [facility] | NEGATIVE | (missing) | (missing) | | (unavailable | 11:48:07 | [facility] | | | | + + + + + + + + + | Result panel 242 | + + + + + + + + + | | 2022-10-13 | [facility] | NEGATIVE | (missing) | (missing) | | (unavailable | 11:48:07 | [facility] | | | | + + + + + + + + + | Result panel 243 | + + + + + + + + + | | 2022-10-13 | [facility] | NEGATIVE | (missing) | (missing) | | (unavailable | 11:48:07 | [facility] | | | | + + + + + + + + + | Result panel 244 | + + + + + + + + + | | 2022-10-13 | [facility] | NEGATIVE | (missing) | (missing) | | (unavailable | 11:48:07 | [facility] | | | | + + + + + + + + + | Result panel 245 | + + + + + + + + + | | 2022-10-13 | [facility] | NEGATIVE | (missing) | (missing) | | (unavailable | 11:48:07 | [facility] | | | | + + + + + + + + + | Result panel 246 | + + + + + + + + + | | 2022-10-13 | [facility] | NEGATIVE | (missing) | (missing) | | (unavailable | 11:48:07 | [facility] | | | | + + + + + + + + + | Result panel 247 | + + + + + + + + + | Respiratory | 2022-10-13 | [facility] | NEGATIVE | (missing) | (missing) | | specimen | 12:03 | [facility] | | | | | 2019 novel | | Hospital | | | | | coronavirus | | | | | | | RNA | | | | | | | detection | | | | | | + + + + + + + + + | Result panel 248 | + + + + + + + + + | Influenza | 2022-10-13 | [facility] | NEGATIVE | (missing) | (missing) | | virus A RNA | 12:03 | [facility] | | | | [[facility]ence] | | [facility] | | | | | in | | | | | | | Respiratory | | | | | | | specimen by | | | | | | | [facility] | | | | | | | withprobe | | | | | | | detection | | | | | | + + + + + + + + + | Result panel 249 | + + + + + + + + + | Influenza | 2022-10-13 | [facility] | NEGATIVE | (missing) | (missing) | | virus B RNA | : | [facility] | | | [facility]] | | [facility] | | | | | in | | | | | | | Respiratory | | | | | | | specimen by | | | | | | | [facility] | | | | | | | withprobe | | | | | | | detection | | | | | | + + + + + + + + + | Result panel 250 | + + + + + + + + + | Respiratory | 2022-10-13 | [facility] | NEGATIVE | (missing) | (missing) | | syncytial | 12:03 | [facility] | | | | | virus (RSV) | | Hospital | | | | | RNA | | | | | | | detection by | | | | | | | probe and | | | | | | | target | | | | | | | amplificatio | | | | | | | n method in | | | | | | | culture | | | | | | | isolate | | | | | | + + + + + + + + + | Result panel 251 | + + + + + + + + + | | 2022-10-13 | [facility] | NEGATIVE | (missing) | (missing) | | (unavailable | 12:03:07 | [facility] | | | | + + + + + + + + + | Result panel 252 | + + + + + + + + + | | 2022-10-13 | [facility] | NEGATIVE | (missing) | (missing) | | (unavailable | 12:03:07 | [facility] | | | | + + + + + + + + + | Result panel 253 | + + + + + + + + + | | 2022-10-13 | [facility] | NEGATIVE | (missing) | (missing) | | (unavailable | 12:03:07 | [facility] | | | | + + + + + + + + + | Result panel 254 | + + + + + + + + + | | 2022-10-13 | [facility] | NEGATIVE | (missing) | (missing) | | (unavailable | 12:03:07 | [facility] | | | | + + + + + + + + + | Result panel 255 | + + + + + +-------+ + + | Serum or | 2022-10-13 | [facility] | 3.5 | (missing) | (missing) | | plasma | 12:23 | [facility] | | | | | lactate | | Hospital | | | | | measurement | | | | | | | (moles/volum | | | | | | | e) | | | | | | + + + +-------+ + + + + | Result panel 256 | + + + + + +-------+ + + | | 2022-10-13 | [facility] | 3.5 | (missing) | (missing) | | (unavailable | 12:23:07 | [facility] | [facility] | | | | + + + +-------+ + + + + | Result panel 257 | + + + + + +-------+ + + | Serum or | 2022-10-14 | [facility] | 2.4 | (missing) | (missing) | | plasma | 05:11 | [facility] | | | | | magnesium | | Hospital | | | | | measurement | | | | | | | (mass/volume | | | | | | | ) | | | | | | + + + +-------+ + + + + | Result panel 258 | + + + + + +-------+---------+ + | | 2022-10-14 | [facility] | 2.4 | mg/dL | (missing) | | (unavailable | 05:11:07 | [facility] | | | | + + + +-------+---------+ + + + | Result panel 259 | + + + + + +-------+ + + | | 2022-10-15 | [facility] | 9.7 | (missing) | (missing) | | (unavailable | 05:26:07 | [facility] | | | | + + + +-------+ + + + + | Result panel 260 | + + + + + +--------+ + + | | 2022-10-15 | [facility] | 3.51 | (missing) | (missing) | | (unavailable | 05:26:07 | [facility] | | | | + + + +--------+ + + + + | Result panel 261 | + + + + + +--------+ + + | | 2022-10-15 | [facility] | 10.8 | (missing) | (missing) | | (unavailable | 05:26:07 | [facility] | | | | + + + +--------+ + + + + | Result panel 262 | + + + + + +--------+ + + | | 2022-10-15 | [facility] | 31.3 | (missing) | (missing) | | (unavailable | 05:26:07 | [facility] | | | | + + + +--------+ + + + + | Result panel 263 | + + + + + +--------+ + + | | 2022-10-15 | [facility] | 89.3 | (missing) | (missing) | | (unavailable | 05:26:07 | [facility] | | | | + + + +--------+ + + + + | Result panel 264 | + + + + + +--------+ + + | | 2022-10-15 | [facility] | 30.7 | (missing) | (missing) | | (unavailable | 05:26:07 | [facility] | | | | + + + +--------+ + + + + | Result panel 265 | + + + + + +--------+ + + | | 2022-10-15 | [facility] | 34.4 | (missing) | (missing) | | (unavailable | 05:26:07 | [facility] | | | | + + + +--------+ + + + + | Result panel 266 | + + + + + +--------+ + + | | 2022-10-15 | [facility] | 16.1 | (missing) | (missing) | | (unavailable | 05:26:07 | [facility] | | | | + + + +--------+ + + + + | Result panel 267 | + + + + + +-------+ + + | | 2022-10-15 | [facility] | 167 | (missing) | (missing) | | (unavailable | 05:26:07 | [facility] | | | | + + + +-------+ + + + + | Result panel 268 | + + + + + +--------+ + + | | 2022-10-15 | [facility] | 71.9 | (missing) | (missing) | | (unavailable | 05:26:07 | [facility] | | | | + + + +--------+ + + + + | Result panel 269 | + + + + + +--------+ + + | | 2022-10-15 | [facility] | 22.3 | (missing) | (missing) | | (unavailable | 05:26:07 | [facility] | | | | + + + +--------+ + + + + | Result panel 270 | + + + + + +-------+ + + | | 2022-10-15 | [facility] | 4.8 | (missing) | (missing) | | (unavailable | 05:26:07 | [facility] | | | | + + + +-------+ + + + + | Result panel 271 | + + + + + +-------+ + + | | 2022-10-15 | [facility] | 0.8 | (missing) | (missing) | | (unavailable | 05:26:07 | [facility] | | | | + + + +-------+ + + + + | Result panel 272 | + + + + + +-------+ + + | | 2022-10-15 | [facility] | 0.2 | (missing) | (missing) | | (unavailable | 05:26:07 | [facility] | | | | + + + +-------+ + + + + | Result panel 273 | + + + + + +------+---------+ + | | 2022-10-15 | [facility] | 82 | mg/dL | (missing) | | (unavailable | 05:26:07 | [facility] | | | | + + + +------+---------+ + + + | Result panel 274 | + + + + + +-----+---------+ + | | 2022-10-15 | [facility] | 6 | mg/dL | (missing) | | (unavailable | 05:26:07 | [facility] | | | | + + + +-----+---------+ + + + | Result panel 275 | + + + + + +--------+---------+ + | | 2022-10-15 | [facility] | 0.66 | mg/dL | (missing) | | (unavailable | 05:26:07 | [facility] | | | | + + + +--------+---------+ + + + | Result panel 276 | + + + + + +-------+ + + | | 2022-10-15 | [facility] | 114 | (missing) | (missing) | | (unavailable | 05:26:07 | [facility] | | | | + + + +-------+ + + + + | Result panel 277 | + + + + + +--------+ + + | | 2022-10-15 | [facility] | 9.09 | (missing) | (missing) | | (unavailable | 05:26:07 | [facility] | | | | + + + +--------+ + + + + | Result panel 278 | + + + + + +-------+ + + | | 2022-10-15 | [facility] | 136 | (missing) | (missing) | | (unavailable | 05:26:07 | [facility] | | | | + + + +-------+ + + + + | Result panel 279 | + + + + + +-------+ + + | | 2022-10-15 | [facility] | 3.2 | (missing) | (missing) | | (unavailable | 05:26:07 | [facility] | | | | + + + +-------+ + + + + | Result panel 280 | + + + + + +-------+ + + | | 2022-10-15 | [facility] | 107 | (missing) | (missing) | | (unavailable | 05:26:07 | [facility] | | | | + + + +-------+ + + + + | Result panel 281 | + + + + + +------+ + + | | 2022-10-15 | [facility] | 23 | (missing) | (missing) | | (unavailable | 05:26:07 | [facility] | | | | + + + +------+ + + + + | Result panel 282 | + + + + + +-------+ + + | | 2022-10-15 | [facility] | 9.2 | (missing) | (missing) | | (unavailable | 05:26:07 | [facility] | | | | + + + +-------+ + + + + | Result panel 283 | + + + + + +-------+---------+ + | | 2022-10-15 | [facility] | 7.6 | mg/dL | (missing) | | (unavailable | 05:26:07 | [facility] | | | | + + + +-------+---------+ + + + | Result panel 284 | + + + + + + + + + | | 2023-01-01 | [facility] | NEGATIVE | (missing) | (missing) | | (unavailable | 14:39:07 | [facility] | | | | + + + + + + + + + | Result panel 285 | + + + + + + + + + | | 2023-01-01 | [facility] | NEGATIVE | (missing) | (missing) | | (unavailable | 14:39:07 | [facility] | | | | + + + + + + + + + | Result panel 286 | + + + + + + + + + | | 2023-01-01 | [facility] | NEGATIVE | (missing) | (missing) | | (unavailable | 14:39:07 | [facility] | | | | + + + + + + + + + | Result panel 287 | + + + + + + + + + | | 2023-01-01 | [facility] | NEGATIVE | (missing) | (missing) | | (unavailable | 14:39:07 | [facility] | | | | + + + + + + + + + | Result panel 288 | + + + + + + + + + | | 2023-01-01 | [facility] | NEGATIVE | (missing) | (missing) | | (unavailable | 14:39:07 | [facility] | | | | + + + + + + + + + | Result panel 289 | + + + + + + + + + | | 2023-01-01 | [facility] | NEGATIVE | (missing) | (missing) | | (unavailable | 14:39:07 | [facility] | | | | + + + + + + + + + | Result panel 290 | + + + + + + + + + | | 2023-01-01 | [facility] | NEGATIVE | (missing) | (missing) | | (unavailable | 14:39:07 | [facility] | | | | + + + + + + + + + | Result panel 291 | + + + + + + + + + | | 2023-01-01 | [facility] | NEGATIVE | (missing) | (missing) | | (unavailable | 14:39:07 | [facility] | | | | + + + + + + + + + | Result panel 292 | + + + + + + + + + | | 2023-01-01 | [facility] | NEGATIVE | (missing) | (missing) | | (unavailable | 14:39:07 | [facility] | | | | + + + + + + + + + | Result panel 293 | + + + + + + + + + | | 2023-01-01 | [facility] | NEGATIVE | (missing) | (missing) | | (unavailable | 14:39:07 | [facility] | | | | + + + + + + + + + | Result panel 294 | + + + + + + + + + | | 2023-01-01 | [facility] | NEGATIVE | (missing) | (missing) | | (unavailable | 14:39:07 | [facility] | | | | + + + + + + + + + | Result panel 295 | + + + + + + + + + | | 2023-01-01 | [facility] | NEGATIVE | (missing) | (missing) | | (unavailable | 14:39:07 | [facility] | | | | + + + + + + + + + | Result panel 296 | + + + + + + + + + | | 2023-01-01 | [facility] | NEGATIVE | (missing) | (missing) | | (unavailable | 14:39:07 | [facility] | | | | + + + + + + + + + | Result panel 297 | + + + + + +---------+ + + | Third | 2023-01-01 | [facility] | 0.341 | (missing) | (missing) | | generation | 16:44 | [facility] | | | | | thyroid | | Hospital | | | | | stimulating | | | | | | | hormone | | | | | | | (TSH) | | | | | | | measurement | | | | | | + + + +---------+ + + + + | Result panel 298 | + + + + + +-----+ + + | | 2023-01-01 | [facility] | 0 | (missing) | (missing) | | Acetaminophe | 16:44 | [facility] | | | | | n | | Hospital | | | | | [Mass/volume | | | | | | | ] in Serum | | | | | | | or Plasma | | | | | | + + + +-----+ + + + + | Result panel 299 | + + + + + +------+ + + | | 2023-01-01 | [facility] | // | (missing) | (missing) | | Acetaminophe | 16:44 | [facility] | | | | | n [Mass] of | | Hospital | | | | | Dose | | | | | | + + + +------+ + + + + | Result panel 300 | + + + + + +-------+ + + | Serum or | 2023-01-01 | [facility] | 1.2 | (missing) | (missing) | | plasma | 16:44 | [facility] | | | | | salicylates | | Hospital | | | | | level | | | | | | + + + +-------+ + + + + | Result panel 301 | + + + + + +------+ + + | Salicylates | 2023-01-01 | [facility] | // | (missing) | (missing) | | [Mass] of | 16:44 | [facility] | | | | | Dose | | Hospital | | | | + + + +------+ + + + + | Result panel 302 | + + + + + +-------+ + + | | 2023-01-01 | [facility] | 7.6 | (missing) | (missing) | | (unavailable | 16:44:07 | [facility] | | [facility] | | | | + + + +-------+ + + + + | Result panel 303 | + + + + + +-------+ + + | | 2023-01-01 | [facility] | 322 | (missing) | (missing) | | (unavailable | 16:44:07 | [facility] | [facility] | | | | + + + +-------+ + + + + | Result panel 304 | + + + + + +--------+ + + | | 2023-01-01 | [facility] | 59.2 | (missing) | (missing) | | (unavailable | 16:44:07 | [facility] | | | | + + + +--------+ + + + + | Result panel 305 | + + + + + +--------+ + + | | 2023-01-01 | [facility] | 36.5 | (missing) | (missing) | | (unavailable | 16:44:07 | [facility] | | | | + + + +--------+ + + + + | Result panel 306 | + + + + + +-------+ + + | | 2023-01-01 | [facility] | 3.5 | (missing) | (missing) | | (unavailable | 16:44:07 | [facility] | | | | + + + +-------+ + + + + | Result panel 307 | + + + + + +-------+ + + | | 2023-01-01 | [facility] | 0.4 | (missing) | (missing) | | (unavailable | 16:44:07 | [facility] | | | | + + + +-------+ + + + + | Result panel 308 | + + + + + +-------+ + + | | 2023-01-01 | [facility] | 0.4 | (missing) | (missing) | | (unavailable | 16:44:07 | [facility] | | | | + + + +-------+ + + + + | Result panel 309 | + + + + + +------+---------+ + | | 2023-01-01 | [facility] | 87 | mg/dL | (missing) | | (unavailable | 16:44:07 | [facility] | | | | + + + +------+---------+ + + + | Result panel 310 | + + + + + +------+---------+ + | | 2023-01-01 | [facility] | 12 | mg/dL | (missing) | | (unavailable | 16:44:07 | [facility] | [facility] | | | | + + + +------+---------+ + + + | Result panel 311 | + + + + + +--------+---------+ + | | 2023-01-01 | [facility] | 0.75 | mg/dL | (missing) | | (unavailable | 16:44:07 | [facility] | | | | + + + +--------+---------+ + + + | Result panel 312 | + + + + + +-------+ + + | | 2023-01-01 | [facility] | 109 | (missing) | (missing) | | (unavailable | 16:44:07 | [facility] | | | | + + + +-------+ + + + + | Result panel 313 | + + + + + + + + + | | 2023-01-01 | [facility] | SEE | (missing) | (missing) | | (unavailable | 16:44:07 | [facility] | COMMENTS | | | | ) | | [facility] | | | | + + + + + + + + + | Result panel 314 | + + + + + +---------+ + + | | 2023-01-01 | [facility] | 16.00 | (missing) | (missing) | | (unavailable | 16:44:07 | [facility] | [facility] | | | | + + + +---------+ + + + + | Result panel 315 | + + + + + +-------+ + + | | 2023-01-01 | [facility] | 145 | (missing) | (missing) | | (unavailable | 16:44:07 | [facility] | | | | + + + +-------+ + + + + | Result panel 316 | + + + + + +-------+ + + | | 2023-01-01 | [facility] | 4.2 | (missing) | (missing) | | (unavailable | 16:44:07 | [facility] | | | | + + + +-------+ + + + + | Result panel 317 | + + + + + +-------+ + + | | 2023-01-01 | [facility] | 105 | (missing) | (missing) | | (unavailable | 16:44:07 | [facility] | | | | + + + +-------+ + + + + | Result panel 318 | + + + + + +------+ + + | | 2023-01-01 | [facility] | 29 | (missing) | (missing) | | (unavailable | 16:44:07 | [facility] | | | | + + + +------+ + + + + | Result panel 319 | + + + + + +--------+ + + | | 2023-01-01 | [facility] | 15.2 | (missing) | (missing) | | (unavailable | 16:44:07 | [facility] | | | | + + + +--------+ + + + + | Result panel 320 | + + + + + +-------+---------+ + | | 2023-01-01 | [facility] | 8.5 | mg/dL | (missing) | | (unavailable | 16:44:07 | [facility] | | | | + + + +-------+---------+ + + + | Result panel 321 | + + + + + +-------+ + + | | 2023-01-01 | [facility] | 8.0 | (missing) | (missing) | | (unavailable | 16:44:07 | [facility] | | | | + + + +-------+ + + + + | Result panel 322 | + + + + + +-------+ + + | | 2023-01-01 | [facility] | 4.7 | (missing) | (missing) | | (unavailable | 16:44:07 | [facility] | | | | + + + +-------+ + + + + | Result panel 323 | + + + + + +-------+ + + | | 2023-01-01 | [facility] | 3.3 | (missing) | (missing) | | (unavailable | 16:44:07 | [facility] | | | | + + + +-------+ + + + + | Result panel 324 | + + + + + +--------+ + + | | 2023-01-01 | [facility] | 4.49 | (missing) | (missing) | | (unavailable | 16:44:07 | [facility] | | | | + + + +--------+ + + + + | Result panel 325 | + + + + + +--------+ + + | | 2023-01-01 | [facility] | 1.42 | (missing) | (missing) | | (unavailable | 16:44:07 | [facility] | | | | + + + +--------+ + + + + | Result panel 326 | + + + + + +-------+ + + | | 2023-01-01 | [facility] | 0.2 | (missing) | (missing) | | (unavailable | 16:44:07 | [facility] | | | | + + + +-------+ + + + + | Result panel 327 | + + + + + +------+ + + | | 2023-01-01 | [facility] | 57 | (missing) | (missing) | | (unavailable | 16:44:07 | [facility] | | | | + + + +------+ + + + + | Result panel 328 | + + + + + +------+ + + | | 2023-01-01 | [facility] | 82 | (missing) | (missing) | | (unavailable | 16:44:07 | [facility] | | | | + + + +------+ + + + + | Result panel 329 | + + + + + +------+ + + | | 2023-01-01 | [facility] | 72 | (missing) | (missing) | | (unavailable | 16:44:07 | [facility] | | | | + + + +------+ + + + + | Result panel 330 | + + + + + +---------+ + + | | 2023-01-01 | [facility] | 0.341 | (missing) | (missing) | | (unavailable | 16:44:07 | [facility] | | | | + + + +---------+ + + + + | Result panel 331 | + + + + + +-----+ + + | | 2023-01-01 | [facility] | 0 | (missing) | (missing) | | (unavailable | 16:44:07 | [facility] | | | | + + + +-----+ + + + + | Result panel 332 | + + + + + +------+ + + | | 2023-01-01 | [facility] | // | (missing) | (missing) | | (unavailable | 16:44:07 | [facility] | | | | + + + +------+ + + + + | Result panel 333 | + + + + + +-------+---------+ + | | 2023-01-01 | [facility] | 1.2 | mg/dL | (missing) | | (unavailable | 16:44:07 | [facility] | | | | + + + +-------+---------+ + + + | Result panel 334 | + + + + + +------+ + + | | 2023-01-01 | [facility] | // | (missing) | (missing) | | (unavailable | 16:44:07 | [facility] | | | | + + + +------+ + + + + | Result panel 335 | + + + + + +--------+ + + | | 2023-01-01 | [facility] | 13.6 | (missing) | (missing) | | (unavailable | 16:44:07 | [facility] | | | | + + + +--------+ + + + + | Result panel 336 | + + + + + +-------+ + + | | 2023-01-01 | [facility] | 258 | (missing) | (missing) | | (unavailable | 16:44:07 | [facility] | | | | + + + +-------+ + + + + | Result panel 337 | + + + + + +--------+ + + | | 2023-01-01 | [facility] | 41.6 | (missing) | (missing) | | (unavailable | 16:44:07 | [facility] | | | | + + + +--------+ + + + + | Result panel 338 | + + + + + +---------+ + + | | 2023-01-01 | [facility] | 0.341 | (missing) | (missing) | | (unavailable | 16:44:07 | [facility] | | | | + + + +---------+ + + + + | Result panel 339 | + + + + + +--------+ + + | | 2023-01-01 | [facility] | 92.7 | (missing) | (missing) | | (unavailable | 16:44:07 | [facility] | | | + + + +--------+ + + + + | Result panel 340 | + + + + + +-----+ + + | | 2023-01-01 | [facility] | 0 | (missing) | (missing) | | (unavailable | 16:44:07 | [facility] | | | + + + +-----+ + + + + | Result panel 341 | + + + + + +------+ + + | | 2023-01-01 | [facility] | // | (missing) | (missing) | | (unavailable | 16:44:07 | [facility] | | | + + + +------+ + + + + | Result panel 342 | + + + + + +-------+---------+ + | | 2023-01-01 | [facility] | 1.2 | mg/dL | (missing) | | (unavailable | 1644:07 | [facility] | | | | + + + +-------+---------+ + + + | Result panel 343 | + + + + + +------+ + + | | 2023-01-01 | [facility] | // | (missing) | (missing) | | (unavailable | 16:44:07 | [facility] | | | + + + +------+ + + + + | Result panel 344 | + + + + + +--------+ + + | | 2023-01-01 | [facility] | 30.2 | (missing) | (missing) | | (unavailable | 16:44:07 | [facility] | | | + + + +--------+ + + + + | Result panel 345 | + + + + + +--------+ + + | | 2023-01-01 | [facility] | 32.6 | (missing) | (missing) | | (unavailable | 16:44:07 | [facility] | | | + + + +--------+ + + + + | Result panel 346 | + + + + + +--------+ + + | | 2023-01-01 | [facility] | 21.5 | (missing) | (missing) | | (unavailable | 16:44:07 | [facility] | | | + + + +--------+ + + + + | Result panel 347 | + + + + + +-------+ + + | | 2023-01-02 | [facility] | 4.1 | (missing) | (missing) | | (unavailable | 11:40:07 | [facility] | | | | + + + +-------+ + + + + | Result panel 348 | + + + + + +-------+ + + | | 2023-01-02 | [facility] | 105 | (missing) | (missing) | | (unavailable | 11:40:07 | [facility] | | | + + + +-------+ + + + + | Result panel 349 | + + + + + +------+ + + | | 2023-01-02 | [facility] | 30 | (missing) | (missing) | | (unavailable | 11:40:07 | [facility] | | | | + + + +------+ + + + + | Result panel 350 | + + + + + +--------+ + + | | 2023-01-02 | [facility] | 13.1 | (missing) | (missing) | | (unavailable | 11:40:07 | [facility] | | | | + + + +--------+ + + + + | Result panel 351 | + + + + + +-------+---------+ + | | 2023-01-02 | [facility] | 7.9 | mg/dL | (missing) | | (unavailable | 11:40:07 | [facility] | | | + + + +-------+---------+ + + + | Result panel 352 | + + + + + +-------+ + + | | 2023-01-02 | [facility] | 7.2 | (missing) | (missing) | | (unavailable | 11:40:07 | [facility] | | | | + + + +-------+ + + + + | Result panel 353 | + + + + + +-------+ + + | | 2023-01-02 | [facility] | 4.1 | (missing) | (missing) | | (unavailable | 11:40:07 | [facility] | | | | + + + +-------+ + + + + | Result panel 354 | + + + + + +-------+ + + | | 2023-01-02 | [facility] | 3.1 | (missing) | (missing) | | (unavailable | 11:40:07 | [facility] | | | + + + +-------+ + + + + | Result panel 355 | + + + + + +--------+ + + | | 2023-01-02 | [facility] | 1.32 | (missing) | (missing) | | (unavailable | 11:40:07 | [facility] | | | + + + +--------+ + + + + | Result panel 356 | + + + + + +-------+ + + | | 2023-01-02 | [facility] | 0.1 | (missing) | (missing) | | (unavailable | 11:40:07 | [facility] | | | + + + +-------+ + + + + | Result panel 357 | + + + + + +------+ + + | | 2023-01-02 | [facility] | 39 | (missing) | (missing) | | (unavailable | 11:40:07 | [facility] | | | | + + + +------+ + + + + | Result panel 358 | + + + + + +------+ + + | | 2023-01-02 | [facility] | 67 | (missing) | (missing) | | (unavailable | 11:40:07 | [facility] | | | | + + + +------+ + + + + | Result panel 359 | + + + + + +------+ + + | | 2023-01-02 | [facility] | 75 | (missing) | (missing) | | (unavailable | 11:40:07 | [facility] | | | | + + + +------+ + + + + | Result panel 360 | + + + + + +-------+ + + | | 2023-01-02 | [facility] | 192 | (missing) | (missing) | | (unavailable | 11:40:07 | [facility] | | | | + + + +-------+ + + + + | Result panel 361 | + + + + + +-------+ + + | | 2023-01-02 | [facility] | 5.0 | (missing) | (missing) | | (unavailable | 11:40:07 | [facility] | | | | + + + +-------+ + + + + | Result panel 362 | + + + + + + + + + | | 2023-01-02 | [facility] | SEE COMMENT | (missing) | (missing) | | (unavailable | 11:40:07 | [facility] | | | | + + + + + + + + + | Result panel 363 | + + + + + +--------+ + + | | 2023-01-02 | [facility] | 4.03 | (missing) | (missing) | | (unavailable | 11:40:07 | [facility] | | | | + + + +--------+ + + + + | Result panel 364 | + + + + + +--------+ + + | | 2023-01-02 | [facility] | 12.1 | (missing) | (missing) | | (unavailable | 11:40:07 | [facility] | | | | + + + +--------+ + + + + | Result panel 365 | + + + + + +--------+ + + | | 2023-01-02 | [facility] | 37.8 | (missing) | (missing) | | (unavailable | 11:40:07 | [facility] | | | | + + + +--------+ + + + + | Result panel 366 | + + + + + +--------+ + + | | 2023-01-02 | [facility] | 93.7 | (missing) | (missing) | | (unavailable | 11:40:07 | [facility] | | | | + + + +--------+ + + + + | Result panel 367 | + + + + + +--------+ + + | | 2023-01-02 | [facility] | 30.0 | (missing) | (missing) | | (unavailable | 11:40:07 | [facility] | | | | + + + +--------+ + + + + | Result panel 368 | + + + + + +--------+ + + | | 2023-01-02 | [facility] | 32.0 | (missing) | (missing) | | (unavailable | 11:40:07 | [facility] | | | | + + + +--------+ + + + + | Result panel 369 | + + + + + +--------+ + + | | 2023-01-02 | [facility] | 21.6 | (missing) | (missing) | | (unavailable | 11:40:07 | [facility] | | | | + + + +--------+ + + + + | Result panel 370 | + + + + + +-------+ + + | | 2023-01-02 | [facility] | 279 | (missing) | (missing) | | (unavailable | 11:40:07 | [facility] | | | | + + + +-------+ + + + + | Result panel 371 | + + + + + +--------+ + + | | 2023-01-02 | [facility] | 57.9 | (missing) | (missing) | | (unavailable | 11:40:07 | [facility] | | | + + + +--------+ + + + + | Result panel 372 | + + + + + +--------+ + + | | 2023-01-02 | [facility] | 37.2 | (missing) | (missing) | | (unavailable | 11:40:07 | [facility] | | | | + + + +--------+ + + + + | Result panel 373 | + + + + + +-------+ + + | | 2023-01-02 | [facility] | 4.1 | (missing) | (missing) | | (unavailable | 11:40:07 | [facility] | | | | + + + +-------+ + + + + | Result panel 374 | + + + + + +-------+ + + | | 2023-01-02 | [facility] | 0.6 | (missing) | (missing) | | (unavailable | 11:40:07 | [facility] | | | | + + + +-------+ + + + + | Result panel 375 | + + + + + +-------+ + + | | 2023-01-02 | [facility] | 0.2 | (missing) | (missing) | | (unavailable | 11:40:07 | [facility] | | | | + + + +-------+ + + + + | Result panel 376 | + + + + + +--------+ + + | | 2023-01-02 | [facility] | 13.2 | (missing) | (missing) | | (unavailable | 11:40:07 | [facility] | | | + + + +--------+ + + + + | Result panel 377 | + + + + + +--------+ + + | | 2023-01-02 | [facility] | 1.05 | (missing) | (missing) | | (unavailable | 11:40:07 | [facility] | | | | + + + +--------+ + + + + | Result panel 378 | + + + + + +-------+---------+ + | | 2023-01-02 | [facility] | 126 | mg/dL | (missing) | | (unavailable | 11:40:07 | [facility] | | | | + + + +-------+---------+ + + + | Result panel 379 | + + + + + +------+---------+ + | | 2023-01-02 | [facility] | 11 | mg/dL | (missing) | | (unavailable | 11::07 | [facility] | | | | + + + +------+---------+ + + + | Result panel 380 | + + + + + +--------+---------+ + | | 2023-01-02 | [facility] | 0.76 | mg/dL | (missing) | | (unavailable | 11:40:07 | [facility] | | | | + + + +--------+---------+ + + + | Result panel 381 | + + + + + +-------+ + + | | 2023-01-02 | [facility] | 108 | (missing) | (missing) | | (unavailable | 11:40:07 | [facility] | | | | + + + +-------+ + + + + | Result panel 382 | + + + + + +---------+ + + | | 2023-01-02 | [facility] | 14.47 | (missing) | (missing) | | (unavailable | 11:40:07 | [facility] | | | | + + + +---------+ + + + + | Result panel 383 | + + + + + +-------+ + + | | 2023-01-02 | [facility] | 144 | (missing) | (missing) | | (unavailable | 11:40:07 | [facility] | | | | + + + +-------+ + + + + | Result panel 384 | + + + + + +-------+ + + | | 2023-01-02 | [facility] | 110 | (missing) | (missing) | | (unavailable | 12:25:07 | [facility] | | | | + + + +-------+ + + + + | Result panel 385 | + + + + + + + + + | | 2023-01-02 | [facility] | POSITIVE | (missing) | (missing) | | (unavailable | 12:42:07 | [facility] | | | | + + + + + + + + + | Result panel 386 | + + + + + + + + + | | 2023-01-02 | [facility] | NEGATIVE | (missing) | (missing) | | (unavailable | 12:42:07 | [facility] | | | | + + + + + + + + + | Result panel 387 | + + + + + + + + + | | 2023-01-02 | [facility] | NEGATIVE | (missing) | (missing) | | (unavailable | 12:42:07 | [facility] | | | | + + + + + + + + + | Result panel 388 | + + + + + + + + + | | 2023-01-02 | [facility] | NEGATIVE | (missing) | (missing) | | (unavailable | 12:42:07 | [facility] | | | | + + + + + + + + + | Result panel 389 | + + + + + + + + + | | 2023-01-02 | [facility] | NEGATIVE | (missing) | (missing) | | (unavailable | 12:42:07 | [facility] | | | | + + + + + + + + + | Result panel 390 | + + + + + + + + + | | 2023-01-02 | [facility] | NEGATIVE | (missing) | (missing) | | (unavailable | 12:42:07 | [facility] | | | | + + + + + + + + + | Result panel 391 | + + + + + + + + + | | 2023-01-02 | [facility] | NEGATIVE | (missing) | (missing) | | (unavailable | 12:42:07 | [facility] | | | | + + + + + + + + + | Result panel 392 | + + + + + + + + + | | 2023-01-02 | [facility] | NEGATIVE | (missing) | (missing) | | (unavailable | 12:42:07 | [facility] | | | | + + + + + + + + + | Result panel 393 | + + + + + + + + + | | 2023-01-02 | [facility] | NEGATIVE | (missing) | (missing) | | (unavailable | 12:42:07 | [facility] | | | | + + + + + + + + + | Result panel 394 | + + + + + + + + + | | 2023-01-02 | [facility] | NEGATIVE | (missing) | (missing) | | (unavailable | 12:42:07 | [facility] | | | | + + + + + + + + + | Result panel 395 | + + + + + + + + + | | 2023-01-02 | [facility] | NEGATIVE | (missing) | (missing) | | (unavailable | 12:42:07 | [facility] | | | | + + + + + + + + + | Result panel 396 | + + + + + + + + + | | 2023-01-02 | [facility] | NEGATIVE | (missing) | (missing) | | (unavailable | 12:42:07 | [facility] | | | | + + + + + + + + + | Result panel 397 | + + + + + + + + + | | 2023-01-02 | [facility] | NEGATIVE | (missing) | (missing) | | (unavailable | 12:42:07 | [facility] | | | | + + + + + + + + + | Result panel 398 | + + + + + + + + + | | 2023-01-02 | [facility] | YELLOW | (missing) | (missing) | | (unavailable | 12:42:07 | [facility] | | | | + + + + + + + + + | Result panel 399 | + + + + + +---------+ + + | | 2023-01-02 | [facility] | CLEAR | (missing) | (missing) | | (unavailable | 12:42:07 | [facility] | | | | + + + +---------+ + + + + | Result panel 400 | + + + + + + + + + | | 2023-01-02 | [facility] | NEGATIVE | (missing) | (missing) | | (unavailable | 12:42:07 | [facility] | | | | + + + + + + + + + | Result panel 401 | + + + + + + + + + | | 2023-01-02 | [facility] | NEGATIVE | (missing) | (missing) | | (unavailable | 12:42:07 | [facility] | | | | + + + + + + + + + | Result panel 402 | + + + + + + + + + | | 2023-01-02 | [facility] | NEGATIVE | (missing) | (missing) | | (unavailable | 12:42:07 | [facility] | | | | + + + + + + + + + | Result panel 403 | + + + + + + + + + | | 2023-01-02 | [facility] | >=1.030 | (missing) | (missing) | | (unavailable | 12:42:07 | [facility] | | | | + + + + + + + + + | Result panel 404 | + + + + + + + + + | | 2023-01-02 | [facility] | NEGATIVE | (missing) | (missing) | | (unavailable | 12:42:07 | [facility] | | | | + + + + + + + + + | Result panel 405 | + + + + + +-------+ + + | | 2023-01-02 | [facility] | 5.0 | (missing) | (missing) | | (unavailable | 12:42:07 | [facility] | | | | + + + +-------+ + + + + | Result panel 406 | + + + + + + + + + | | 2023-01-02 | [facility] | NEGATIVE | (missing) | (missing) | | (unavailable | 12:42:07 | [facility] | | | | + + + + + + + + + | Result panel 407 | + + + + + + + + + | | 2023-01-02 | [facility] | NORMAL | (missing) | (missing) | | (unavailable | 12:42:07 | [facility] | | | | + + + + + + + + + | Result panel 408 | + + + + + + + + + | | 2023-01-02 | [facility] | NEGATIVE | (missing) | (missing) | | (unavailable | 12:42:07 | [facility] | | | | + + + + + + + + + | Result panel 409 | + + + + + + + + + | | 2023-01-02 | [facility] | NEGATIVE | (missing) | (missing) | | (unavailable | 12:42:07 | [facility] | | | | + + + + + + + + + | Third generation thyroid stimulating hormone (TSH) measurement | + + + + + +---------+ + + | Third | 2023-01-01 | [facility] | 0.341 | (missing) | (missing) | | generation | 16:44 | [facility] | | | | | thyroid | | [facility] | | | | | stimulating | | | | | | | hormone | | | | | | | (TSH) | | | | | | | measurement | | | | | | + + + +---------+ + + + + | Automated urine sediment erythrocyte count by microscopy (number/high power field) | + + + + + +--------+ + + | Automated | 2022-09-13 | [facility] | 2-3 | (missing) | (missing) | | urine | 04:26 | [facility] | | | | sediment | | [facility] | | | | | erythrocyte | | | | | | | count by | | | | | | | microscopy | | | | | | | (number/high | | | | | | | power | | | | | | | field) | | | | | | + + + +--------+ + + | Automated | 2022-09-14 | [facility] | 7-11 | (missing) | (missing) | | urine | 00:55 | [facility] | | | | sediment | | [facility] | | | | | erythrocyte | | | | | | | count by | | | | | | | microscopy | | | | | | | (number/high | | | | | | | power | | | | | | | field) | | | | | | + + + +--------+ + + + + | Urine benzodiazepines detection by screening method | + + + + + + + + + | Urine | 2023-01-02 | [facility] | NEGATIVE | (missing) | (missing) | | benzodiazepi | 12:42 | [facility] | | | | nora | | [facility] | | | | | detection by | | | | | | | screening | | | | | | | method | | | | | | + + + + + + + + + | Urine benzodiazepines detection by screening method | + + + + + + + + + | Urine | 2022-09-14 | [facility] | NEGATIVE | (missing) | (missing) | | benzodiazepi | 00:55 | [facility] | | | | [facility] | | [facility] | | | | | detection by | | | | | | | screening | | | | | | | method | | | | | | + + + + + + + + + | Urine benzodiazepines detection by screening method | + + + + + + + + + | Urine | 2022-09-13 | [facility] | NEGATIVE | (missing) | (missing) | | benzodiazepi | 04:26 | [facility] | | | | [facility]a | | [facility] | | | | | detection by | | | | | | | screening | | | | | | | method | | | | | | + + + + + + + + + | Urine benzodiazepines detection by screening method | + + + + + + + + + | Urine | 2023-01-01 | [facility] | NEGATIVE | (missing) | (missing) | | benzodiazepi | 14:39 | [facility] | | | | [facility] | | [facility] | | | | | detection by | | | | | | | screening | | | | | | | method | | | | | | + + + + + + + + + | Serum or plasma ethanol measurement (moles/volume) | + + + + + +-------+ + + | Serum or | 2023-01-01 | [facility] | 258 | (missing) | (missing) | | plasma | 16:44 | [facility] | | | | ethanol | | [facility] | | | | | measurement | | | | | | | (moles/volum | | | | | | | e) | | | | | | + + + +-------+ + + + + | Serum or plasma ethanol measurement (moles/volume) | + + + + + +-------+ + + | Serum or | 2023-01-02 | [facility] | 192 | (missing) | (missing) | | plasma | 11:40 | [facility] | | | | ethanol | | [facility] | | | | | measurement | | | | | | | (moles/volum | | | | | | | e) | | | | | | + + + +-------+ + + + + | Serum or plasma ethanol measurement (moles/volume) | + + + + + +-------+ + + | Serum or | 2022-09-14 | [facility] | 116 | (missing) | (missing) | | plasma | 00:08 | [facility] | | | | ethanol | | [facility] | | | | | measurement | | | | | | | (moles/volum | | | | | | | e) | | | | | | + + + +-------+ + + + + | Serum or plasma ethanol measurement (moles/volume) | + + + + + +-------+ + + | Serum or | 2022-09-13 | [facility] | 165 | (missing) | (missing) | | plasma | 01:30 | [facility] | | | | ethanol | | [facility] | | | | | measurement | | | | | | | ([place]/volum | | | | | | | e) | | | | | | + + + +-------+ + + + + | Activated partial thromboplastin time (aPTT) in platelet poor plasma by coagulation | | assay | + + + + + +--------+ + + | Activated | 2022-09-14 | [facility] | 29.1 | (missing) | (missing) | | partial | 00:08 | [facility] | | | | thromboplast | | [facility] | | | | | in time | | | | | | | (aPTT) in | | | | | | | platelet | | | | | | | poor plasma | | | | | | | by | | | | | | | coagulation | | | | | | | assay | | | | | | + + + +--------+ + + + + | Activated partial thromboplastin time (aPTT) in platelet poor plasma by coagulation | | assay | + + + + + +--------+ + + | Activated | 2022-09-13 | [facility] | 26.2 | (missing) | (missing) | | partial | 01:30 | [facility] | | | | thromboplast | | [facility] | | | | | in time | | | | | | | (aPTT) in | | | | | | | platelet | | | | | | | poor plasma | | | | | | | by | | | | | | | coagulation | | | | | | | assay | | | | | | + + + +--------+ + + + + | Serum or plasma alanine aminotransferase measurement (enzymatic activity/volume) | + + + + + +------+ + + | Serum or | 2023-01-01 | [facility] | 82 | (missing) | (missing) | | plasma | 16:44 | [facility] | | | | | alanine | | Hospital | | | | | aminotransfe | | | | | | | rase | | | | | | | measurement | | | | | | | (enzymatic | | | | | | | activity/vol | | | | | | | ume) | | | | | | + + + +------+ + + + + | Serum or plasma alanine aminotransferase measurement (enzymatic activity/volume) | + + + + + +------+ + + | Serum or | 2023-01-02 | [facility] | 67 | (missing) | (missing) | | plasma | 11:40 | [facility] | | | | | alanine | | Hospital | | | | | aminotransfe | | | | | | | rase | | | | | | | measurement | | | | | | | (enzymatic | | | | | | | activity/vol | | | | | | | ume) | | | | | | + + + +------+ + + + + | Serum or plasma alanine aminotransferase measurement (enzymatic activity/volume) | + + + + + +------+ + + | Serum or | 2022-09-14 | [facility] | 81 | (missing) | (missing) | | plasma | 00:08 | [facility] | | | | alanine | | Hospital | | | | | aminotransfe | | | | | | | rase | | | | | | | measurement | | | | | | | (enzymatic | | | | | | | activity/vol | | | | | | | ume) | | | | | | + + + +------+ + + + + | Serum or plasma alanine aminotransferase measurement (enzymatic activity/volume) | + + + + + +-------+ + + | Serum or | 2022-09-13 | [facility] | 112 | (missing) | (missing) | | plasma | 01:30 | [facility] | | | | | alanine | | [facility] | | | | | aminotransfe | | | | | | | rase | | | | | | | measurement | | | | | | | (enzymatic | | | | | | | activity/vol | | | | | | | ume) | | | | | | + + + +-------+ + + + + | Serum or plasma albumin measurement (mass/volume) | + + + + + +-------+ + + | Serum or | 2023-01-01 | [facility] | 4.7 | (missing) | (missing) | | plasma | 16:44 | [facility] | | | | albumin | | [facility] | | | | | measurement | | | | | | | (mass/volume | | | | | | | ) | | | | | | + + + +-------+ + + + + | Serum or plasma albumin measurement (mass/volume) | + + + + + +-------+ + + | Serum or | 2023-01-02 | [facility] | 4.1 | (missing) | (missing) | | plasma | 11:40 | [facility] | | | | albumin | | [facility] | | | | | measurement | | | | | | | (mass/volume | | | | | | | ) | | | | | | + + + +-------+ + + + + | Serum or plasma albumin measurement (mass/volume) | + + + + + +-------+ + + | Serum or | 2022-09-14 | [facility] | 4.2 | (missing) | (missing) | | plasma | 00:08 | [facility] | | | | | albumin | | [facility] | | | | | measurement | | | | | | | (mass/volume | | | | | | | ) | | | | | | + + + +-------+ + + + + | Serum or plasma albumin measurement (mass/volume) | + + + + + +-------+ + + | Serum or | 2022-09-13 | [facility] | 4.5 | (missing) | (missing) | | plasma | 01:30 | [facility] | | | | | albumin | | [facility] | | | | | measurement | | | | | | | (mass/volume | | | | | | | ) | | | | | | + + + +-------+ + + + + | Serum or plasma albumin/globulin mass ratio | + + + + + +--------+ + + | Serum or | 2023-01-01 | [facility] | 1.42 | (missing) | (missing) | | plasma | 16:44 | [facility] | | | | | albumin/glob | | Hospital | | | | | ulin mass | | | | | | | ratio | | | | | | + + + +--------+ + + + + | Serum or plasma albumin/globulin mass ratio | + + + + + +--------+ + + | Serum or | 2023-01-02 | [facility] | 1.32 | (missing) | (missing) | | plasma | 11:40 | [facility] | | | | | albumin/glob | | [facility] | | | | | ulin mass | | | | | | | ratio | | | | | | + + + +--------+ + + + + | Serum or plasma albumin/globulin mass ratio | + + + + + +--------+ + + | Serum or | 2022-09-14 | [facility] | 1.27 | (missing) | (missing) | | plasma | 00:08 | [facility] | | | | | albumin/glob | | [facility] | | | | | ulin mass | | | | | | | ratio | | | | | | + + + +--------+ + + + + | Serum or plasma albumin/globulin mass ratio | + + + + + +--------+ + + | Serum or | 2022-09-13 | [facility] | 1.41 | (missing) | (missing) | | plasma | 01:30 | [facility] | | | | | albumin/glob | | [facility] | | | | | ulin mass | | | | | | | ratio | | | | | | + + + +--------+ + + + + | Serum or plasma calcium measurement (mass/volume) | + + + + + +-------+ + + | Serum or | 2022-10-15 | [facility] | 7.6 | (missing) | (missing) | | plasma | 05:26 | [facility] | | | | | calcium | | [facility] | | | | | measurement | | | | | | | (mass/volume | | | | | | | ) | | | | | | + + + +-------+ + + + + | Serum or plasma calcium measurement (mass/volume) | + + + + + +-------+ + + | Serum or | 2023-01-01 | [facility] | 8.5 | (missing) | (missing) | | plasma | 16:44 | [facility] | | | | | calcium | | [facility] | | | | | measurement | | | | | | | (mass/volume | | | | | | | ) | | | | | | + + + +-------+ + + + + | Serum or plasma calcium measurement (mass/volume) | + + + + + +-------+ + + | Serum or | 2023-01-02 | [facility] | 7.9 | (missing) | (missing) | | plasma | 11:40 | [facility] | | | | | calcium | | [facility] | | | | | measurement | | | | | | | (mass/volume | | | | | | | ) | | | | | | + + + +-------+ + + + + | Serum or plasma calcium measurement (mass/volume) | + + + + + +-------+ + + | Serum or | 2022-09-14 | [facility] | 9.0 | (missing) | (missing) | | plasma | 00:08 | [facility] | | | | | calcium | | Hospital | | | | | measurement | | | | | | | (mass/volume | | | | | | | ) | | | | | | + + + +-------+ + + + + | Serum or plasma calcium measurement (mass/volume) | + + + + + +-------+ + + | Serum or | 2022-09-13 | [facility] | 9.5 | (missing) | (missing) | | plasma | 01:30 | [facility] | | | | | calcium | | [facility] | | | | | measurement | | | | | | | (mass/volume | | | | | | | ) | | | | | | + + + +-------+ + + + + | Serum or plasma anion gap 4 | + + + + + +-------+ + + | Serum or | 2022-10-15 | [facility] | 9.2 | (missing) | (missing) | | plasma anion | 05:26 | [facility] | | | | | gap 4 | | [facility] | | | | + + + +-------+ + + + + | Serum or plasma anion gap 4 | + + + + + +--------+ + + | Serum or | 2023-01-01 | [facility] | 15.2 | (missing) | (missing) | | plasma anion | 16:44 | [facility] | | | | | gap 4 | | [facility] | | | | + + + +--------+ + + + + | Serum or plasma anion gap 4 | + + + + + +--------+ + + | Serum or | 2023-01-02 | [facility] | 13.1 | (missing) | (missing) | | plasma anion | 11:40 | [facility] | | | | | gap 4 | | [facility] | | | | + + + +--------+ + + + + | Serum or plasma anion gap 4 | + + + + + +--------+ + + | Serum or | 2022-09-14 | [facility] | 17.9 | (missing) | (missing) | | plasma anion | 00:08 | [facility] | | | | | gap 4 | | [facility] | | | | + + + +--------+ + + + + | Serum or plasma anion gap 4 | + + + + + +--------+ + + | Serum or | 2022-09-13 | [facility] | 24.1 | (missing) | (missing) | | plasma anion | 01:30 | [facility] | | | | | gap 4 | | [facility] | | | | + + + +--------+ + + + + | Urinalysis specimen collection method | + + + + + + + + + | Urinalysis | 2022-09-13 | [facility] | CLEAN CATCH | (missing) | (missing) | | specimen | 04:26 | [facility] | | | | | collection | | Hospital | | | | | method | | | | | | + + + + + + + + + | Serum or plasma aspartate aminotransferase measurement (enzymatic activity/volume) | + + + + + +------+ + + | Serum or | 2023-01-01 | [facility] | 57 | (missing) | (missing) | | plasma | 16:44 | [facility] | | | | | aspartate | | Hospital | | | | | aminotransfe | | | | | | | rase | | | | | | | measurement | | | | | | | (enzymatic | | | | | | | activity/vol | | | | | | | ume) | | | | | | + + + +------+ + + + + | Serum or plasma aspartate aminotransferase measurement (enzymatic activity/volume) | + + + + + +------+ + + | Serum or | 2023-01-02 | [facility] | 39 | (missing) | (missing) | | plasma | 11:40 | [facility] | | | | | aspartate | | Hospital | | | | | aminotransfe | | | | | | | rase | | | | | | | measurement | | | | | | | (enzymatic | | | | | | | activity/vol | | | | | | | ume) | | | | | | + + + +------+ + + + + | Serum or plasma aspartate aminotransferase measurement (enzymatic activity/volume) | + + + + + +------+ + + | Serum or | 2022-09-14 | [facility] | 43 | (missing) | (missing) | | plasma | 00:08 | [facility] | | | | | aspartate | | Hospital | | | | | aminotransfe | | | | | | | rase | | | | | | | measurement | | | | | | | (enzymatic | | | | | | | activity/vol | | | | | | | ume) | | | | | | + + + +------+ + + + + | Serum or plasma aspartate aminotransferase measurement (enzymatic activity/volume) | + + + + + +------+ + + | Serum or | 2022-09-13 | [facility] | 56 | (missing) | (missing) | | plasma | 01:30 | [facility] | | | | | aspartate | | Hospital | | | | | aminotransfe | | | | | | | rase | | | | | | | measurement | | | | | | | (enzymatic | | | | | | | activity/vol | | | | | | | ume) | | | | | | + + + +------+ + + + + | Character of Urine | + + + + + +---------+ + + | Character | 2022-09-13 | [facility] | CLEAR | (missing) | (missing) | | of Urine | 04:26 | [facility] | [facility] | | | | [facility] | | | | + + + +---------+ + + | Character | 2022-09-14 | [facility] | CLEAR | (missing) | (missing) | | of Urine | 00:55 | [facility] | | | | | | [facility] | | | | + + + +---------+ + + | Character | 2023-01-02 | [facility] | CLEAR | (missing) | (missing) | | of Urine | 12:42 | [facility] | | | | | | [facility] | | | | + + + +---------+ + + + + | Urine amphetamines detection by screening method | + + + + + + + + + | Urine | 2023-01-02 | [facility] | NEGATIVE | (missing) | (missing) | | amphetamines | 12:42 | [facility] | | | | | detection | | Hospital | | | | | by screening | | | | | | | method | | | | | | + + + + + + + + + | Urine amphetamines detection by screening method | + + + + + + + + + | Urine | 2022-09-14 | [facility] | NEGATIVE | (missing) | (missing) | | amphetamines | 00:55 | [facility] | | | | | detection | | Hospital | | | | | by screening | | | | | | | method | | | | | | + + + + + + + + + | Urine amphetamines detection by screening method | + + + + + + + + + | Urine | 2022-09-13 | [facility] | NEGATIVE | (missing) | (missing) | | amphetamines | 04:26 | [facility] | | | | | detection | | Hospital | | | | | by screening | | | | | | | method | | | | | | + + + + + + + + + | Urine amphetamines detection by screening method | + + + + + + + + + | Urine | 2023-01-01 | [facility] | NEGATIVE | (missing) | (missing) | | amphetamines | 14:39 | [facility] | | | | | detection | | Hospital | | | | | by screening | | | | | | | method | | | | | | + + + + + + + + + | Urine barbiturates detection by screening method | + + + + + + + + + | Urine | 2023-01-02 | [facility] | NEGATIVE | (missing) | (missing) | | barbiturates | 12:42 | [facility] | | | | | detection | | Hospital | | | | | by screening | | | | | | | method | | | | | | + + + + + + + + + | Urine barbiturates detection by screening method | + + + + + + + + + | Urine | 2022-09-14 | [facility] | NEGATIVE | (missing) | (missing) | | barbiturates | 00:55 | [facility] | | | | | detection | | Hospital | | | | | by screening | | | | | | | method | | | | | | + + + + + + + + + | Urine barbiturates detection by screening method | + + + + + + + + + | Urine | 2022-09-13 | [facility] | NEGATIVE | (missing) | (missing) | | barbiturates | 04:26 | [facility] | | | | | detection | | Hospital | | | | | by screening | | | | | | | method | | | | | | + + + + + + + + + | Urine barbiturates detection by screening method | + + + + + + + + + | Urine | 2023-01-01 | [facility] | NEGATIVE | (missing) | (missing) | | barbiturates | 14:39 | [facility] | | | | | detection | | Hospital | | | | | by screening | | | | | | | method | | | | | | + + + + + + + + + | Urine opiates detection by screening method | + + + + + + + + + | Urine | 2023-01-02 | [facility] | NEGATIVE | (missing) | (missing) | | opiates | 12:42 | [facility] | | | | | detection by | | Hospital | | | | | screening | | | | | | | method | | | | | | + + + + + + + + + | Urine opiates detection by screening method | + + + + + + + + + | Urine | 2022-09-14 | [facility] | NEGATIVE | (missing) | (missing) | | opiates | 00:55 | [facility] | | | | | detection by | | Hospital | | | | | screening | | | | | | | method | | | | | | + + + + + + + + + | Urine opiates detection by screening method | + + + + + + + + + | Urine | 2022-09-13 | [facility] | NEGATIVE | (missing) | (missing) | | opiates | 04:26 | [facility] | | | | | detection by | | Hospital | | | | | screening | | | | | | | method | | | | | | + + + + + + + + + | Urine opiates detection by screening method | + + + + + + + + + | Urine | 2023-01-01 | [facility] | NEGATIVE | (missing) | (missing) | | opiates | 14:39 | [facility] | | | | | detection by | | Hospital | | | | | screening | | | | | | | method | | | | | | + + + + + + + + + | Screening urine tricyclic antidepressants detection | + + + + + + + + + | Screening | 2023-01-02 | [facility] | NEGATIVE | (missing) | (missing) | | urine | 12:42 | [facility] | | | | | tricyclic | | Hospital | | | | | antidepressa | | | | | | | nts | | | | | | | detection | | | | | | + + + + + + + + + | Screening urine tricyclic antidepressants detection | + + + + + + + + + | Screening | 2022-09-14 | [facility] | NEGATIVE | (missing) | (missing) | | urine | 00:55 | [facility] | | | | | tricyclic | | Hospital | | | | | antidepressa | | | | | | | nts | | | | | | | detection | | | | | | + + + + + + + + + | Screening urine tricyclic antidepressants detection | + + + + + + + + + | Screening | 2022-09-13 | [facility] | NEGATIVE | (missing) | (missing) | | urine | 04:26 | [facility] | | | | | tricyclic | | Hospital | | | | | antidepressa | | | | | | | nts | | | | | | | detection | | | | | | + + + + + + + + + | Screening urine tricyclic antidepressants detection | + + + + + + + + + | Screening | 2023-01-01 | [facility] | NEGATIVE | (missing) | (missing) | | urine | 14:39 | [facility] | | | | | tricyclic | | Hospital | | | | | antidepressa | | | | | | | nts | | | | | | | detection | | | | | | + + + + + + + + + | Urine methadone detection by screening method | + + + + + + + + + | Urine | 2023-01-02 | [facility] | NEGATIVE | (missing) | (missing) | | methadone | 12:42 | [facility] | | | | | detection by | | Hospital | | | | | screening | | | | | | | method | | | | | | + + + + + + + + + | Urine methadone detection by screening method | + + + + + + + + + | Urine | 2022-09-14 | [facility] | NEGATIVE | (missing) | (missing) | | methadone | 00:55 | [facility] | | | | | detection by | | Hospital | | | | | screening | | | | | | | method | | | | | | + + + + + + + + + | Urine methadone detection by screening method | + + + + + + + + + | Urine | 2022-09-13 | [facility] | NEGATIVE | (missing) | (missing) | | methadone | 04:26 | [facility] | | | | | detection by | | Hospital | | | | | screening | | | | | | | method | | | | | | + + + + + + + + + | Urine methadone detection by screening method | + + + + + + + + + | Urine | 2023-01-01 | [facility] | NEGATIVE | (missing) | (missing) | | methadone | 14:39 | [facility] | | | | | detection by | | Hospital | | | | | screening | | | | | | | method | | | | | | + + + + + + + + + | Urine methamphetamine detection by screening method | + + + + + + + + + | Urine | 2023-01-02 | [facility] | NEGATIVE | (missing) | (missing) | | methamphetam | 12:42 | [facility] | | | | | ine | | Hospital | | | | | detection by | | | | | | | screening | | | | | | | method | | | | | | + + + + + + + + + | Urine methamphetamine detection by screening method | + + + + + + + + + | Urine | 2022-09-14 | [facility] | NEGATIVE | (missing) | (missing) | | methamphetam | 00:55 | [facility] | | | | | ine | | Hospital | | | | | detection by | | | | | | | screening | | | | | | | method | | | | | | + + + + + + + + + | Urine methamphetamine detection by screening method | + + + + + + + + + | Urine | 2022-09-13 | [facility] | NEGATIVE | (missing) | (missing) | | methamphetam | 04:26 | [facility] | | | | | ine | | Hospital | | | | | detection by | | | | | | | screening | | | | | | | method | | | | | | + + + + + + + + + | Urine methamphetamine detection by screening method | + + + + + + + + + | Urine | 2023-01-01 | [facility] | NEGATIVE | (missing) | (missing) | | methamphetam | 14:39 | [facility] | | | | | ine | | Hospital | | | | | detection by | | | | | | | screening | | | | | | | method | | | | | | + + + + + + + + + | Urine methylenedioxymethamphetamine detection by screening method | + + + + + + + + + | Urine | 2023-01-02 | [facility] | NEGATIVE | (missing) | (missing) | | methylenedio | 12:42 | [facility] | | | | | xymethamphet | | Hospital | | | | | amine | | | | | | | detection by | | | | | | | screening | | | | | | | method | | | | | | + + + + + + + + + | Urine methylenedioxymethamphetamine detection by screening method | + + + + + + + + + | Urine | 2023-01-02 | [facility] | NEGATIVE | (missing) | (missing) | | methylenedio | 12:42 | [facility] | | | | | xymethamphet | | Hospital | | | | | amine | | | | | | | detection by | | | | | | | screening | | | | | | | method | | | | | | + + + + + + + + + | Urine methylenedioxymethamphetamine detection by screening method | + + + + + + + + + | Urine | 2022-09-14 | [facility] | NEGATIVE | (missing) | (missing) | | methylenedio | 00:55 | [facility] | | | | | xymethamphet | | Hospital | | | | | amine | | | | | | | detection by | | | | | | | screening | | | | | | | method | | | | | | + + + + + + + + + | Urine methylenedioxymethamphetamine detection by screening method | + + + + + + + + + | Urine | 2022-09-13 | [facility] | NEGATIVE | (missing) | (missing) | | methylenedio | 04:26 | [facility] | | | | | xymethamphet | | Hospital | | | | | amine | | | | | | | detection by | | | | | | | screening | | | | | | | method | | | | | | + + + + + + + | Urine | 2022-09-14 | [facility] | NEGATIVE | (missing) | (missing) | | methylenedio | 00:55 | [facility] | | | | | xymethamphet | | Hospital | | | | | amine | | | | | | | detection by | | | | | | | screening | | | | | | | method | | | | | | + + + + + + + + + | Urine methylenedioxymethamphetamine detection by screening method | + + + + + + + + + | Urine | 2022-09-13 | [facility] | NEGATIVE | (missing) | (missing) | | methylenedio | 04:26 | [facility] | | | | | xymethamphet | | Hospital | | | | | amine | | | | | | | detection by | | | | | | | screening | | | | | | | method | | | | | | + + + + + + + + + | Urine methylenedioxymethamphetamine detection by screening method | + + + + + + + + + | Urine | 2023-01-01 | [facility] | NEGATIVE | (missing) | (missing) | | methylenedio | 14:39 | [facility] | | | | | xymethamphet | | Hospital | | | | | amine | | | | | | | detection by | | | | | | | screening | | | | | | | method | | | | | | + + + + + + + + + | Urine methylenedioxymethamphetamine detection by screening method | + + + + + + + + + | Urine | 2023-01-01 | [facility] | NEGATIVE | (missing) | (missing) | | methylenedio | 14:39 | [facility] | | | | | xymethamphet | | Hospital | | | | | amine | | | | | | | detection by | | | | | | | screening | | | | | | | method | | | | | | + + + + + + + + + | Urine phencyclidine detection by screening method | + + + + + + + + + | Urine | 2023-01-02 | [facility] | NEGATIVE | (missing) | (missing) | | phencyclidin | 12:42 | [facility] | | | | | e detection | | Hospital | | | | | by screening | | | | | | | method | | | | | | + + + + + + + + + | Urine phencyclidine detection by screening method | + + + + + + + + + | Urine | 2022-09-14 | [facility] | NEGATIVE | (missing) | (missing) | | phencyclidin | 00:55 | [facility] | | | | | e detection | | Hospital | | | | | by screening | | | | | | | method | | | | | | + + + + + + + + + | Urine phencyclidine detection by screening method | + + + + + + + + + | Urine | 2022-09-13 | [facility] | NEGATIVE | (missing) | (missing) | | phencyclidin | 04:26 | [facility] | | | | | e detection | | Hospital | | | | | by screening | | | | | | | method | | | | | | + + + + + + + + + | Urine phencyclidine detection by screening method | + + + + + + + + + | Urine | 2023-01-01 | [facility] | NEGATIVE | (missing) | (missing) | | phencyclidin | 14:39 | [facility] | | | | | e detection | | Hospital | | | | | by screening | | | | | | | method | | | | | | + + + + + + + + + | Serum or plasma total bilirubin measurement (mass/volume) | + + + + + +-------+ + + | Serum or | 2023-01-01 | [facility] | 0.2 | (missing) | (missing) | | plasma total | 16:44 | [facility] | | | | | bilirubin | | Hospital | | | | | measurement | | | | | | | (mass/volume | | | | | | | ) | | | | | | + + + +-------+ + + + + | Serum or plasma total bilirubin measurement (mass/volume) | + + + + + +-------+ + + | Serum or | 2023-01-02 | [facility] | 0.1 | (missing) | (missing) | | plasma total | 11:40 | [facility] | | | | | bilirubin | | Hospital | | | | | measurement | | | | | | | (mass/volume | | | | | | | ) | | | | | | + + + +-------+ + + + + | Serum or plasma total bilirubin measurement (mass/volume) | + + + + + +-------+ + + | Serum or | 2022-09-14 | [facility] | 1.1 | (missing) | (missing) | | plasma total | 00:08 | [facility] | | | | | bilirubin | | Hospital | | | | | measurement | | | | | | | (mass/volume | | | | | | | ) | | | | | | + + + +-------+ + + + + | Serum or plasma total bilirubin measurement (mass/volume) | + + + + + +-------+ + + | Serum or | 2022-09-13 | [facility] | 0.5 | (missing) | (missing) | | plasma total | 01:30 | [facility] | | | | | bilirubin | | Hospital | | | | | measurement | | | | | | | (mass/volume | | | | | | | ) | | | | | | + + + +-------+ + + + + | Serum or plasma carbon dioxide, total measurement (moles/volume) | + + + + + +------+ + + | Serum or | 2022-10-15 | [facility] | 23 | (missing) | (missing) | | plasma | 05:26 | [facility] | | | | | carbon | | Hospital | | | | | dioxide, | | | | | | | total | | | | | | | measurement | | | | | | | (moles/volum | | | | | | | e) | | | | | | + + + +------+ + + + + | Serum or plasma carbon dioxide, total measurement (moles/volume) | + + + + + +------+ + + | Serum or | 2023-01-01 | [facility] | 29 | (missing) | (missing) | | plasma | 16:44 | [facility] | | | | | carbon | | Hospital | | | | | dioxide, | | | | | | | total | | | | | | | measurement | | | | | | | (moles/volum | | | | | | | e) | | | | | | + + + +------+ + + + + | Serum or plasma carbon dioxide, total measurement (moles/volume) | + + + + + +------+ + + | Serum or | 2023-01-02 | [facility] | 30 | (missing) | (missing) | | plasma | 11:40 | [facility] | | | | | carbon | | Hospital | | | | | dioxide, | | | | | | | total | | | | | | | measurement | | | | | | | (moles/volum | | | | | | | e) | | | | | | + + + +------+ + + + + | Serum or plasma carbon dioxide, total measurement (moles/volume) | + + + + + +------+ + + | Serum or | 2022-09-14 | [facility] | 26 | (missing) | (missing) | | plasma | 00:08 | [facility] | | | | | carbon | | Hospital | | | | | dioxide, | | | | | | | total | | | | | | | measurement | | | | | | | (moles/volum | | | | | | | e) | | | | | | + + + +------+ + + + + | Serum or plasma carbon dioxide, total measurement (moles/volume) | + + + + + +------+ + + | Serum or | 2022-09-13 | [facility] | 22 | (missing) | (missing) | | plasma | 01:30 | [facility] | | | | | carbon | | Hospital | | | | | dioxide, | | | | | | | total | | | | | | | measurement | | | | | | | (moles/volum | | | | | | | e) | | | | | | + + + +------+ + + + + | Urobilinogen [Mass/volume] in Urine by Test strip | + + + + + + + + + | | 2022-09-13 | [facility] | NORMAL | (missing) | (missing) | | Urobilinogen | 04:26 | [facility] | | | | | | [facility] | | | | | [Mass/volume | | | | | | | ] in Urine | | | | | | | by Test | | | | | | | strip | | | | | | + + + + + + + | | 2022-09-14 | [facility] | NORMAL | (missing) | (missing) | | Urobilinogen | 00:55 | [facility] | | | | | | [facility] | | | | | [Mass/volume | | | | | | | ] in Urine | | | | | | | by Test | | | | | | | strip | | | | | | + + + + + + + | | 2023-01-02 | [facility] | NORMAL | (missing) | (missing) | | Urobilinogen | 12:42 | [facility] | | | | | | [facility] | | | | | [Mass/volume | | | | | | | ] in Urine | | | | | | | by Test | | | | | | | strip | | | | | | + + + + + + + + + | Serum or plasma chloride measurement (moles/volume) | + + + + + +-------+ + + | Serum or | 2022-10-15 | [facility] | 107 | (missing) | (missing) | | plasma | 05:26 | [facility] | | | | | chloride | | Hospital | | | | | measurement | | | | | | | (moles/volum | | | | | | | e) | | | | | | + + + +-------+ + + + + | Serum or plasma chloride measurement (moles/volume) | + + + + + +-------+ + + | Serum or | 2023-01-01 | [facility] | 105 | (missing) | (missing) | | plasma | 16:44 | [facility] | | | | | chloride | | Hospital | | | | | measurement | | | | | | | (moles/volum | | | | | | | e) | | | | | | + + + +-------+ + + + + | Serum or plasma chloride measurement (moles/volume) | + + + + + +-------+ + + | Serum or | 2023-01-02 | [facility] | 105 | (missing) | (missing) | | plasma | 11:40 | [facility] | | | | | chloride | | Hospital | | | | | measurement | | | | | | | (moles/volum | | | | | | | e) | | | | | | + + + +-------+ + + + + | Serum or plasma chloride measurement (moles/volume) | + + + + + +------+ + + | Serum or | 2022-09-14 | [facility] | 99 | (missing) | (missing) | | plasma | 00:08 | [facility] | | | | | chloride | | Hospital | | | | | measurement | | | | | | | (moles/volum | | | | | | | e) | | | | | | + + + +------+ + + + + | Serum or plasma chloride measurement (moles/volume) | + + + + + +-------+ + + | Serum or | 2022-09-13 | [facility] | 100 | (missing) | (missing) | | plasma | 01:30 | [facility] | | | | | chloride | | Hospital | | | | | measurement | | | | | | | (moles/volum | | | | | | | e) | | | | | | + + + +-------+ + + + + | Automated erythrocyte distribution width | + + + + + +--------+ + + | Automated | 2023-01-02 | [facility] | 21.6 | (missing) | (missing) | | erythrocyte | 11:40 | [facility] | | | | | distribution | | Hospital | | | | | width | | | | | | + + + +--------+ + + + + | Automated erythrocyte distribution width | + + + + + +--------+ + + | Automated | 2022-09-14 | [facility] | 18.0 | (missing) | (missing) | | erythrocyte | 00:08 | [facility] | | | | | distribution | | Hospital | | | | | width | | | | | | + + + +--------+ + + + + | Automated erythrocyte distribution width | + + + + + +--------+ + + | Automated | 2022-09-13 | [facility] | 18.8 | (missing) | (missing) | | erythrocyte | 01:30 | [facility] | | | | | distribution | | Hospital | | | | | width | | | | | | + + + +--------+ + + + + | Automated erythrocyte distribution width | + + + + + +--------+ + + | Automated | 2022-10-15 | [facility] | 16.1 | (missing) | (missing) | | erythrocyte | 05:26 | [facility] | | | | | distribution | | Hospital | | | | | width | | | | | | + + + +--------+ + + + + | Automated erythrocyte distribution width | + + + + + +--------+ + + | Automated | 2023-01-01 | [facility] | 21.5 | (missing) | (missing) | | erythrocyte | 16:44 | [facility] | | | | | distribution | | Hospital | | | | | width | | | | | | + + + +--------+ + + + + | Serum or plasma creatinine measurement (mass/volume) | + + + + + +--------+ + + | Serum or | 2022-10-15 | [facility] | 0.66 | (missing) | (missing) | | plasma | 05:26 | [facility] | | | | | creatinine | | Hospital | | | | | measurement | | | | | | | (mass/volume | | | | | | | ) | | | | | | + + + +--------+ + + + + | Serum or plasma creatinine measurement (mass/volume) | + + + + + +--------+ + + | Serum or | 2023-01-01 | [facility] | 0.75 | (missing) | (missing) | | plasma | 16:44 | [facility] | | | | | creatinine | | Hospital | | | | | measurement | | | | | | | (mass/volume | | | | | | | ) | | | | | | + + + +--------+ + + + + | Serum or plasma creatinine measurement (mass/volume) | + + + + + +--------+ + + | Serum or | 2023-01-02 | [facility] | 0.76 | (missing) | (missing) | | plasma | 11:40 | [facility] | | | | | creatinine | | Hospital | | | | | measurement | | | | | | | (mass/volume | | | | | | | ) | | | | | | + + + +--------+ + + + + | Serum or plasma creatinine measurement (mass/volume) | + + + + + +--------+ + + | Serum or | 2022-09-14 | [facility] | 0.83 | (missing) | (missing) | | plasma | 00:08 | [facility] | | | | | creatinine | | Hospital | | | | | measurement | | | | | | | (mass/volume | | | | | | | ) | | | | | | + + + +--------+ + + + + | Serum or plasma creatinine measurement (mass/volume) | + + + + + +--------+ + + | Serum or | 2022-09-13 | [facility] | 1.03 | (missing) | (missing) | | plasma | 01:30 | [facility] | | | | | creatinine | | Hospital | | | | | measurement | | | | | | | (mass/volume | | | | | | | ) | | | | | | + + + +--------+ + + + + | Serum globulin measurement (mass/volume) | + + + + + +-------+ + + | Serum | 2023-01-01 | [facility] | 3.3 | (missing) | (missing) | | globulin | 16:44 | [facility] | | | | | measurement | | Hospital | | | | | (mass/volume | | | | | | | ) | | | | | | + + + +-------+ + + + + | Serum globulin measurement (mass/volume) | + + + + + +-------+ + + | Serum | 2023-01-02 | [facility] | 3.1 | (missing) | (missing) | | globulin | 11:40 | [facility] | | | | | measurement | | Hospital | | | | | (mass/volume | | | | | | | ) | | | | | | + + + +-------+ + + + + | Serum globulin measurement (mass/volume) | + + + + + +-------+ + + | Serum | 2022-09-14 | [facility] | 3.3 | (missing) | (missing) | | globulin | 00:08 | [facility] | | | | | measurement | | Hospital | | | | | (mass/volume | | | | | | | ) | | | | | | + + + +-------+ + + + + | Serum globulin measurement (mass/volume) | + + + + + +-------+ + + | Serum | 2022-09-13 | [facility] | 3.2 | (missing) | (missing) | | globulin | 01:30 | [facility] | | | | | measurement | | Hospital | | | | | (mass/volume | | | | | | | ) | | | | | | + + + +-------+ + + + + | Whole blood glucose measurement using handheld analyzer (mass/volume) | + + + + + +-------+ + + | Whole blood | 2023-01-02 | [facility] | 110 | (missing) | (missing) | | glucose | 12:25 | [facility] | | | | | measurement | | Hospital | | | | | using | | | | | | | handheld | | | | | | | analyzer | | | | | | | (mass/volume | | | | | | | ) | | | | | | + + + +-------+ + + + + | Serum or plasma glucose measurement (mass/volume) | + + + + + +------+ + + | Serum or | 2022-10-15 | [facility] | 82 | (missing) | (missing) | | plasma | 05:26 | [facility] | | | | | glucose | | [facility] | | | | | measurement | | | | | | | (mass/volume | | | | | | | ) | | | | | | + + + +------+ + + + + | Serum or plasma glucose measurement (mass/volume) | + + + + + +------+ + + | Serum or | 2023-01-01 | [facility] | 87 | (missing) | (missing) | | plasma | 16:44 | [facility] | | | | | glucose | | [facility] | | | | | measurement | | | | | | | (mass/volume | | | | | | | ) | | | | | | + + + +------+ + + + + | Serum or plasma glucose measurement (mass/volume) | + + + + + +-------+ + + | Serum or | 2023-01-02 | [facility] | 126 | (missing) | (missing) | | plasma | 11:40 | [facility] | | | | | glucose | | [facility] | | | | | measurement | | | | | | | (mass/volume | | | | | | | ) | | | | | | + + + +-------+ + + + + | Serum or plasma glucose measurement (mass/volume) | + + + + + +------+ + + | Serum or | 2022-09-14 | [facility] | 93 | (missing) | (missing) | | plasma | 00:08 | [facility] | | | | glucose | | [facility] | | | | | measurement | | | | | | | (mass/volume | | | | | | | ) | | | | | | + + + +------+ + + + + | Serum or plasma glucose measurement (mass/volume) | + + + + + +------+ + + | Serum or | 2022-09-13 | [facility] | 99 | (missing) | (missing) | | plasma | 01:30 | [facility] | | | | | glucose | | [facility] | | | | | measurement | | | | | | | (mass/volume | | | | | | | ) | | | | | | + + + +------+ + + + + | Urine ketones detection by test strip | + + + + + + + + + | Urine | 2022-09-13 | [facility] | SMALL | (missing) | (missing) | | ketones | 04:26 | [facility] | | | | | detection by | | Hospital | | | | | test strip | | | | | | + + + + + + + | Urine | 2022-09-14 | [facility] | SMALL | (missing) | (missing) | | ketones | 00:55 | [facility] | | | | | detection by | | Hospital | | | | | test strip | | | | | | + + + + + + + | Urine | 2023-01-02 | [facility] | NEGATIVE | (missing) | (missing) | | ketones | 12:42 | [facility] | | | | | detection by | | Hospital | | | | | test strip | | | | | | + + + + + + + + + | Glucose [Presence] in Urine by Test strip | + + + + + + + + + | Glucose | 2022-09-13 | [facility] | NEGATIVE | (missing) | (missing) | | [Presence] | 04:26 | [facility] | | | | | in Urine by | | Hospital | | | | | Test strip | | | | | | + + + + + + + | Glucose | 2022-09-14 | [facility] | NEGATIVE | (missing) | (missing) | | [Presence] | 00:55 | [facility] | | | | | in Urine by | | Hospital | | | | | Test strip | | | | | | + + + + + + + | Glucose | 2023-01-02 | [facility] | NEGATIVE | (missing) | (missing) | | [Presence] | 12:42 | [facility] | | | | | in Urine by | | Hospital | | | | | Test strip | | | | | | + + + + + + + + + | Serum or plasma potassium measurement (moles/volume) | + + + + + +-------+ + + | Serum or | 2022-10-15 | [facility] | 3.2 | (missing) | (missing) | | plasma | 05:26 | [facility] | | | | | potassium | | Hospital | | | | | measurement | | | | | | | (moles/volum | | | | | | | e) | | | | | | + + + +-------+ + + + + | Serum or plasma potassium measurement (moles/volume) | + + + + + +-------+ + + | Serum or | 2023-01-01 | [facility] | 4.2 | (missing) | (missing) | | plasma | 16:44 | [facility] | | | | | potassium | | Hospital | | | | | measurement | | | | | | | (moles/volum | | | | | | | e) | | | | | | + + + +-------+ + + + + | Serum or plasma potassium measurement (moles/volume) | + + + + + +-------+ + + | Serum or | 2023-01-02 | [facility] | 4.1 | (missing) | (missing) | | plasma | 11:40 | [facility] | | | | | potassium | | Hospital | | | | | measurement | | | | | | | (moles/volum | | | | | | | e) | | | | | | + + + +-------+ + + + + | Serum or plasma potassium measurement (moles/volume) | + + + + + +-------+ + + | Serum or | 2022-09-14 | [facility] | 3.9 | (missing) | (missing) | | plasma | 00:08 | [facility] | | | | | potassium | | Hospital | | | | | measurement | | | | | | | (moles/volum | | | | | | | e) | | | | | | + + + +-------+ + + + + | Serum or plasma potassium measurement (moles/volume) | + + + + + +-------+ + + | Serum or | 2022-09-13 | [facility] | 4.1 | (missing) | (missing) | | plasma | 01:30 | [facility] | | | | | potassium | | Hospital | | | | | measurement | | | | | | | (moles/volum | | | | | | | e) | | | | | | + + + +-------+ + + + + | Serum or plasma protein measurement (mass/volume) | + + + + + +-------+ + + | Serum or | 2023-01-01 | [facility] | 8.0 | (missing) | (missing) | | plasma | 16:44 | [facility] | | | | | protein | | Hospital | | | | | measurement | | | | | | | (mass/volume | | | | | | | ) | | | | | | + + + +-------+ + + + + | Serum or plasma protein measurement (mass/volume) | + + + + + +-------+ + + | Serum or | 2023-01-02 | [facility] | 7.2 | (missing) | (missing) | | plasma | 11:40 | [facility] | | | | | protein | | Hospital | | | | | measurement | | | | | | | (mass/volume | | | | | | | ) | | | | | | + + + +-------+ + + + + | Serum or plasma protein measurement (mass/volume) | + + + + + +-------+ + + | Serum or | 2022-09-14 | [facility] | 7.5 | (missing) | (missing) | | plasma | 00:08 | [facility] | | | | | protein | | [facility] | | | | | measurement | | | | | | | (mass/volume | | | | | | | ) | | | | | | + + + +-------+ + + + + | Serum or plasma protein measurement (mass/volume) | + + + + + +-------+ + + | Serum or | 2022-09-13 | [facility] | 7.7 | (missing) | (missing) | | plasma | 01:30 | [facility] | | | | | protein | | Hospital | | | | | measurement | | | | | | | (mass/volume | | | | | | | ) | | | | | | + + + +-------+ + + + + | Serum or plasma sodium measurement (moles/volume) | + + + + + +-------+ + + | Serum or | 2022-10-15 | [facility] | 136 | (missing) | (missing) | | plasma | 05:26 | [facility] | | | | | sodium | | Hospital | | | | | measurement | | | | | | | (moles/volum | | | | | | | e) | | | | | | + + + +-------+ + + + + | Serum or plasma sodium measurement (moles/volume) | + + + + + +-------+ + + | Serum or | 2023-01-01 | [facility] | 145 | (missing) | (missing) | | plasma | 16:44 | [facility] | | | | | sodium | | Hospital | | | | | measurement | | | | | | | (moles/volum | | | | | | | e) | | | | | | + + + +-------+ + + + + | Serum or plasma sodium measurement (moles/volume) | + + + + + +-------+ + + | Serum or | 2023-01-02 | [facility] | 144 | (missing) | (missing) | | plasma | 11:40 | [facility] | | | | | sodium | | Hospital | | | | | measurement | | | | | | | (moles/volum | | | | | | | e) | | | | | | + + + +-------+ + + + + | Serum or plasma sodium measurement (moles/volume) | + + + + + +-------+ + + | Serum or | 2022-09-14 | [facility] | 139 | (missing) | (missing) | | plasma | 00:08 | [facility] | | | | | sodium | | Hospital | | | | | measurement | | | | | | | (moles/volum | | | | | | | e) | | | | | | + + + +-------+ + + + + | Serum or plasma sodium measurement (moles/volume) | + + + + + +-------+ + + | Serum or | 2022-09-13 | [facility] | 142 | (missing) | (missing) | | plasma | 01:30 | [facility] | | | | | sodium | | Hospital | | | | | measurement | | | | | | | (moles/volum | | | | | | | e) | | | | | | + + + +-------+ + + + + | Serum or plasma urea nitrogen measurement (mass/volume) | + + + + + +-----+ + + | Serum or | 2022-10-15 | [facility] | 6 | (missing) | (missing) | | plasma urea | 05:26 | [facility] | | | | | nitrogen | | Hospital | | | | | measurement | | | | | | | (mass/volume | | | | | | | ) | | | | | | + + + +-----+ + + + + | Serum or plasma urea nitrogen measurement (mass/volume) | + + + + + +------+ + + | Serum or | 2023-01-01 | [facility] | 12 | (missing) | (missing) | | plasma urea | 16:44 | [facility] | | | | | nitrogen | | Hospital | | | | | measurement | | | | | | | (mass/volume | | | | | | | ) | | | | | | + + + +------+ + + + + | Serum or plasma urea nitrogen measurement (mass/volume) | + + + + + +------+ + + | Serum or | 2023-01-02 | [facility] | 11 | (missing) | (missing) | | plasma urea | 11:40 | [facility] | | | | | nitrogen | | Hospital | | | | | measurement | | | | | | | (mass/volume | | | | | | | ) | | | | | | + + + +------+ + + + + | Serum or plasma urea nitrogen measurement (mass/volume) | + + + + + +------+ + + | Serum or | 2022-09-14 | [facility] | 13 | (missing) | (missing) | | plasma urea | 00:08 | [facility] | | | | | nitrogen | | Hospital | | | | | measurement | | | | | | | (mass/volume | | | | | | | ) | | | | | | + + + +------+ + + + + | Serum or plasma urea nitrogen measurement (mass/volume) | + + + + + +------+ + + | Serum or | 2022-09-13 | [facility] | 14 | (missing) | (missing) | | plasma urea | 01:30 | [facility] | | | | | nitrogen | | Hospital | | | | | measurement | | | | | | | (mass/volume | | | | | | | ) | | | | | | + + + +------+ + + + + | Serum or plasma urea nitrogen/creatinine mass ratio | + + + + + +--------+ + + | Serum or | 2022-10-15 | [facility] | 9.09 | (missing) | (missing) | | plasma urea | 05:26 | [facility] | | | | | nitrogen/cre | | Hospital | | | | | atinine mass | | | | | | | ratio | | | | | | + + + +--------+ + + + + | Serum or plasma urea nitrogen/creatinine mass ratio | + + + + + +---------+ + + | Serum or | 2023-01-01 | [facility] | 16.00 | (missing) | (missing) | | plasma urea | 16:44 | [facility] | | | | | nitrogen/cre | | Hospital | | | | | atinine mass | | | | | | | ratio | | | | | | + + + +---------+ + + + + | Serum or plasma urea nitrogen/creatinine mass ratio | + + + + + +---------+ + + | Serum or | 2023-01-02 | [facility] | 14.47 | (missing) | (missing) | | plasma urea | 11:40 | [facility] | | | | | nitrogen/cre | | Hospital | | | | | atinine mass | | | | | | | ratio | | | | | | + + + +---------+ + + + + | Serum or plasma urea nitrogen/creatinine mass ratio | + + + + + +---------+ + + | Serum or | 2022-09-14 | [facility] | 15.66 | (missing) | (missing) | | plasma urea | 00:08 | [facility] | | | | | nitrogen/cre | | Hospital | | | | | atinine mass | | | | | | | ratio | | | | | | + + + +---------+ + + + + | Serum or plasma urea nitrogen/creatinine mass ratio | + + + + + +---------+ + + | Serum or | 2022-09-13 | [facility] | 13.59 | (missing) | (missing) | | plasma urea | 01:30 | [facility] | | | | | nitrogen/cre | | Hospital | | | | | atinine mass | | | | | | | ratio | | | | | | + + + +---------+ + + + + | Acetaminophen [Mass/volume] in Serum or Plasma | + + + + + +-----+ + + | | 2023-01-01 | [facility] | 0 | (missing) | (missing) | | Acetaminophe | 16:44 | [facility] | | | | | n | | Hospital | | | | | [Mass/volume | | | | | | | ] in Serum | | | | | | | or Plasma | | | | | | + + + +-----+ + + + + | Acetaminophen [Mass/volume] in Serum or Plasma | + + + + + +-----+ + + | | 2022-09-13 | [facility] | 0 | (missing) | (missing) | | Acetaminophe | 01:30 | [facility] | | | | | n | | Hospital | | | | | [Mass/volume | | | | | | | ] in Serum | | | | | | | or Plasma | | | | | | + + + +-----+ + + + + | Urine cocaine detection | + + + + + + + + + | Urine | 2023-01-02 | [facility] | NEGATIVE | (missing) | (missing) | | cocaine | 12:42 | [facility] | | | | | detection | | Hospital | | | | + + + + + + + + + | Urine cocaine detection | + + + + + + + + + | Urine | 2022-09-14 | [facility] | NEGATIVE | (missing) | (missing) | | cocaine | 00:55 | [facility] | | | | | detection | | Hospital | | | | + + + + + + + + + | Urine cocaine detection | + + + + + + + + + | Urine | 2022-09-13 | [facility] | NEGATIVE | (missing) | (missing) | | cocaine | 04:26 | [facility] | | | | | detection | | Hospital | | | | + + + + + + + + + | Urine cocaine detection | + + + + + + + + + | Urine | 2023-01-01 | [facility] | NEGATIVE | (missing) | (missing) | | cocaine | 14:39 | [facility] | | | | | detection | | Hospital | | | | + + + + + + + + + | Urine buprenorphine detection | + + + + + + + + + | Urine | 2023-01-02 | [facility] | NEGATIVE | (missing) | (missing) | | buprenorphin | 12:42 | [facility] | | | | | e detection | | Hospital | | | | + + + + + + + + + | Urine buprenorphine detection | + + + + + + + + + | Urine | 2022-09-14 | [facility] | NEGATIVE | (missing) | (missing) | | buprenorphin | 00:55 | [facility] | | | | | e detection | | Hospital | | | | + + + + + + + + + | Urine buprenorphine detection | + + + + + + + + + | Urine | 2022-09-13 | [facility] | NEGATIVE | (missing) | (missing) | | buprenorphin | 04:26 | [facility] | | | | | e detection | | Hospital | | | | + + + + + + + + + | Urine buprenorphine detection | + + + + + + + + + | Urine | 2023-01-01 | [facility] | NEGATIVE | (missing) | (missing) | | buprenorphin | 14:39 | [facility] | | | | | e detection | | Hospital | | | | + + + + + + + + + | Urine vthtu-1-cziqsvnoaohfhheigphd (THC) detection | + + + + + + + + + | Urine | 2023-01-02 | [facility] | POSITIVE | (missing) | (missing) | | lrgdb-0-jcuj | 12:42 | [facility] | | | | | ahydrocannab | | Hospital | | | | | inol ([facility]C) | | | | | | | detection | | | | | | + + + + + + + + + | Urine lejgb-1-guncnouagowiwrnblgme (THC) detection | + + + + + + + + + | Urine | 2022-09-14 | [facility] | POSITIVE | (missing) | (missing) | | knsnz-8-erhq | 00:55 | [facility] | | | | | ahydrocannab | | Hospital | | | | | inol (THC) | | | | | | | detection | | | | | | + + + + + + + + + | Urine idmfw-2-kmfeipvcsptkcxvhweom (THC) detection | + + + + + + + + + | Urine | 2022-09-13 | [facility] | POSITIVE | (missing) | (missing) | | piwpp-3-tvvd | 04:26 | [facility] | | | | | ahydrocannab | | Hospital | | | | | inol ([facility]C) | | | | | | | detection | | | | | | + + + + + + + + + | Urine hquue-9-uovmplgzphdkafzbfeiw (THC) detection | + + + + + + + + + | Urine | 2023-01-01 | [facility] | NEGATIVE | (missing) | (missing) | | gpmsf-5-fuvz | 14:39 | [facility] | | | | | ahydrocannab | | Hospital | | | | | inol ([facility]C) | | | | | | | detection | | | | | | + + + + + + + + + | Serum or plasma salicylates level | + + + + + +-------+ + + | Serum or | 2023-01-01 | [facility] | 1.2 | (missing) | (missing) | | plasma | 16:44 | [facility] | | | | | salicylates | | Hospital | | | | | level | | | | | | + + + +-------+ + + + + | Acetaminophen [Mass] of Dose | + + + + + +------+ + + | | 2023-01-01 | [facility] | // | (missing) | (missing) | | Acetaminophe | 16:44 | [facility] | | | | | n [Mass] of | | Hospital | | | | | Dose | | | | | | + + + +------+ + + + + | Acetaminophen [Mass] of Dose | + + + + + +------+ + + | | 2022-09-13 | [facility] | // | (missing) | (missing) | | Acetaminophe | 01:30 | [facility] | | | | | n [Mass] of | | Hospital | | | | | Dose | | | | | | + + + +------+ + + + + | Salicylates [Mass] of Dose | + + + + + +------+ + + | Salicylates | 2023-01-01 | [facility] | // | (missing) | (missing) | | [Mass] of | 16:44 | [facility] | | | | | Dose | | Hospital | | | | + + + +------+ + + + + | Color of Urine by Auto | + + + + + + + + + | Color of | 2022-09-13 | [facility] | YELLOW | (missing) | (missing) | | Urine by | 04:26 | [facility] | | | | | Auto | | Hospital | | | | + + + + + + + | Color of | 2022-09-14 | [facility] | YELLOW | (missing) | (missing) | | Urine by | 00:55 | [facility] | | | | | Auto | | Hospital | | | | + + + + + + + | Color of | 2023-01-02 | [facility] | YELLOW | (missing) | (missing) | | Urine by | 12:42 | [facility] | | | | | Auto | | Hospital | | | | + + + + + + + + + | Automated urine sediment bacteria count by microscopy (number/high power field) | + + + + + +--------+ + + | Automated | 2022-09-13 | [facility] | RARE | (missing) | (missing) | | urine | 04:26 | [facility] | | | | | sediment | | Hospital | | | | | bacteria | | | | | | | count by | | | | | | | microscopy | | | | | | | (number/high | | | | | | | power | | | | | | | field) | | | | | | + + + +--------+ + + | Automated | 2022-09-14 | [facility] | RARE | (missing) | (missing) | | urine | 00:55 | [facility] | | | | | sediment | | Hospital | | | | | bacteria | | | | | | | count by | | | | | | | microscopy | | | | | | | (number/high | | | | | | | power | | | | | | | field) | | | | | | + + + +--------+ + + + + | Urine total bilirubin detection by test strip | + + + + + + + + + | Urine total | 2022-09-13 | [facility] | NEGATIVE | (missing) | (missing) | | bilirubin | 04:26 | [facility] | | | | | detection by | | Hospital | | | | | test strip | | | | | | + + + + + + + | Urine total | 2022-09-14 | [facility] | NEGATIVE | (missing) | (missing) | | bilirubin | 00:55 | [facility] | | | | | detection by | | Hospital | | | | | test strip | | | | | | + + + + + + + | Urine total | 2023-01-02 | [facility] | NEGATIVE | (missing) | (missing) | | bilirubin | 12:42 | [facility] | | | | | detection by | | Hospital | | | | | test strip | | | | | | + + + + + + + + + | Crystal typing in urine sediment by light microscopy | + + + + + + + + + | Crystal | 2022-09-13 | [facility] | AMORPHOUS | (missing) | (missing) | | typing in | 04:26 | [facility] | URATES 1+ | | | | urine | | Hospital | | | | | sediment by | | | | | | | light | | | | | | | microscopy | | | | | | + + + + + + + | Crystal | 2022-09-14 | [facility] | NONE SEEN | (missing) | (missing) | | typing in | 00:55 | [facility] | | | | | urine | | Hospital | | | | | sediment by | | | | | | | light | | | | | | | microscopy | | | | | | + + + + + + + + + | Automated urine sediment epithelial cell count by microscopy (number/high power field) | + + + + + + + + + | Automated | 2022-09-13 | [facility] | NONE SEEN | (missing) | (missing) | | urine | 04:26 | [facility] | | | | | sediment | | Hospital | | | | | epithelial | | | | | | | cell count | | | | | | | by | | | | | | | microscopy | | | | | | | (number/high | | | | | | | power | | | | | | | field) | | | | | | + + + + + + + | Automated | 2022-09-14 | [facility] | NONE SEEN | (missing) | (missing) | | urine | 00:55 | [facility] | | | | | sediment | | Hospital | | | | | epithelial | | | | | | | cell count | | | | | | | by | | | | | | | microscopy | | | | | | | (number/high | | | | | | | power | | | | | | | field) | | | | | | + + + + + + + + + | Urine hemoglobin detection by test strip | + + + + + + + + + | Urine | 2022-09-13 | [facility] | SMALL | (missing) | (missing) | | hemoglobin | 04:26 | [facility] | | | | | detection by | | Hospital | | | | | test strip | | | | | | + + + + + + + | Urine | 2022-09-14 | [facility] | SMALL | (missing) | (missing) | | hemoglobin | 00:55 | [facility] | | | | | detection by | | Hospital | | | | | test strip | | | | | | + + + + + + + | Urine | 2023-01-02 | [facility] | NEGATIVE | (missing) | (missing) | | hemoglobin | 12:42 | [facility] | | | | | detection by | | Hospital | | | | | test strip | | | | | | + + + + + + + + + | Urine leukocyte esterase detection by dipstick | + + + + + + + + + | Urine | 2022-09-13 | [facility] | NEGATIVE | (missing) | (missing) | | leukocyte | 04:26 | [facility] | | | | | esterase | | Hospital | | | | | detection by | | | | | | | dipstick | | | | | | + + + + + + + | Urine | 2022-09-14 | [facility] | NEGATIVE | (missing) | (missing) | | leukocyte | 00:55 | [facility] | | | | | esterase | | Hospital | | | | | detection by | | | | | | | dipstick | | | | | | + + + + + + + | Urine | 2023-01-02 | [facility] | NEGATIVE | (missing) | (missing) | | leukocyte | 12:42 | [facility] | | | | | esterase | | Hospital | | | | | detection by | | | | | | | dipstick | | | | | | + + + + + + + + + | Urine nitrite detection by test strip | + + + + + + + + + | Urine | 2022-09-13 | [facility] | NEGATIVE | (missing) | (missing) | | nitrite | 04:26 | [facility] | | | | | detection by | | Hospital | | | | | test strip | | | | | | + + + + + + + | Urine | 2022-09-14 | [facility] | NEGATIVE | (missing) | (missing) | | nitrite | 00:55 | [facility] | | | | | detection by | | Hospital | | | | | test strip | | | | | | + + + + + + + | Urine | 2023-01-02 | [facility] | NEGATIVE | (missing) | (missing) | | nitrite | 12:42 | [facility] | | | | | detection by | | Hospital | | | | | test strip | | | | | | + + + + + + + + + | Urine pH measurement by test strip | + + + + + +-------+ + + | Urine pH | 2022-09-13 | [facility] | 6.0 | (missing) | (missing) | | measurement | 04:26 | [facility] | | | | | by test | | Hospital | | | | | strip | | | | | | + + + +-------+ + + | Urine pH | 2022-09-14 | [facility] | 6.0 | (missing) | (missing) | | measurement | 00:55 | [facility] | | | | | by test | | Hospital | | | | | strip | | | | | | + + + +-------+ + + | Urine pH | 2023-01-02 | [facility] | 5.0 | (missing) | (missing) | | measurement | 12:42 | [facility] | | | | | by test | | Hospital | | | | | strip | | | | | | + + + +-------+ + + + + | Protein urine test strip | + + + + + + + + + | Protein | 2022-09-13 | [facility] | 100 | (missing) | (missing) | | urine test | 04:26 | [facility] | | | | | strip | | Hospital | | | | + + + + + + + | Protein | 2022-09-14 | [facility] | 30 | (missing) | (missing) | | urine test | 00:55 | [facility] | | | | | strip | | Hospital | | | | + + + + + + + | Protein | 2023-01-02 | [facility] | NEGATIVE | (missing) | (missing) | | urine test | 12:42 | [facility] | | | | | strip | | Hospital | | | | + + + + + + + + + | Specific gravity ur dipstick | + + + + + + + + + | Specific | 2022-09-13 | [facility] | >=1.030 | (missing) | (missing) | | gravity ur | 04:26 | [facility] | | | | | dipstick | | Hospital | | | | + + + + + + + | Specific | 2022-09-14 | [facility] | 1.015 | (missing) | (missing) | | gravity ur | 00:55 | [facility] | | | | | dipstick | | Hospital | | | | + + + + + + + | Specific | 2023-01-02 | [facility] | >=1.030 | (missing) | (missing) | | gravity ur | 12:42 | [facility] | | | | | dipstick | | Hospital | | | | + + + + + + + + + | Automated urine sediment leukocyte count by microscopy (number/high power field) | + + + + + +-------+ + + | Automated | 2022-09-13 | [facility] | 0-1 | (missing) | (missing) | | urine | 04:26 | [facility] | | | | | sediment | | Hospital | | | | | leukocyte | | | | | | | count by | | | | | | | microscopy | | | | | | | (number/high | | | | | | | power | | | | | | | field) | | | | | | + + + +-------+ + + | Automated | 2022-09-14 | [facility] | 4-6 | (missing) | (missing) | | urine | 00:55 | [facility] | | | | | sediment | | Hospital | | | | | leukocyte | | | | | | | count by | | | | | | | microscopy | | | | | | | (number/high | | | | | | | power | | | | | | | field) | | | | | | + + + +-------+ + + + + | Prothrombin time (PT) in platelet poor plasma by coagulation assay | + + + + + +--------+ + + | Prothrombin | 2023-01-02 | [facility] | 13.2 | (missing) | (missing) | | time (PT) | 11:40 | [facility] | | | | | in platelet | | Hospital | | | | | poor plasma | | | | | | | by | | | | | | | coagulation | | | | | | | assay | | | | | | + + + +--------+ + + + + | Prothrombin time (PT) in platelet poor plasma by coagulation assay | + + + + + +--------+ + + | Prothrombin | 2022-09-14 | [facility] | 13.5 | (missing) | (missing) | | time (PT) | 00:08 | [facility] | | | | | in platelet | | Hospital | | | | | poor plasma | | | | | | | by | | | | | | | coagulation | | | | | | | assay | | | | | | + + + +--------+ + + + + | Prothrombin time (PT) in platelet poor plasma by coagulation assay | + + + + + +--------+ + + | Prothrombin | 2022-09-13 | [facility] | 13.0 | (missing) | (missing) | | time (PT) | 01:30 | [facility] | | | | | in platelet | | Hospital | | | | | poor plasma | | | | | | | by | | | | | | | coagulation | | | | | | | assay | | | | | | + + + +--------+ + + + + | Automated blood monocyte count as percentage of total leukocytes | + + + + + +-------+ + + | Automated | 2022-10-15 | [facility] | 4.8 | (missing) | (missing) | | blood | 05:26 | [facility] | | | | | monocyte | | Hospital | | | | | count as | | | | | | | percentage | | | | | | | of total | | | | | | | leukocytes | | | | | | + + + +-------+ + + + + | Automated blood monocyte count as percentage of total leukocytes | + + + + + +-------+ + + | Automated | 2023-01-01 | [facility] | 3.5 | (missing) | (missing) | | blood | 16:44 | [facility] | | | | | monocyte | | Hospital | | | | | count as | | | | | | | percentage | | | | | | | of total | | | | | | | leukocytes | | | | | | + + + +-------+ + + + + | Automated blood monocyte count as percentage of total leukocytes | + + + + + +-------+ + + | Automated | 2023-01-02 | [facility] | 4.1 | (missing) | (missing) | | blood | 11:40 | [facility] | | | | | monocyte | | Hospital | | | | | count as | | | | | | | percentage | | | | | | | of total | | | | | | | leukocytes | | | | | | + + + +-------+ + + + + | Automated blood monocyte count as percentage of total leukocytes | + + + + + +-------+ + + | Automated | 2022-09-14 | [facility] | 7.4 | (missing) | (missing) | | blood | 00:08 | [facility] | | | | | monocyte | | Hospital | | | | | count as | | | | | | | percentage | | | | | | | of total | | | | | | | leukocytes | | | | | | + + + +-------+ + + + + | Automated blood monocyte count as percentage of total leukocytes | + + + + + +-------+ + + | Automated | 2022-09-13 | [facility] | 5.5 | (missing) | (missing) | | blood | 01:30 | [facility] | | | | | monocyte | | [facility] | | | | | count as | | | | | | | percentage | | | | | | | of total | | | | | | | leukocytes | | | | | | + + + +-------+ + + + + | Blood blood smear finding identification by light microscopy | + + + + + + + + + | Blood blood | 2023-01-01 | [facility] | SEE | (missing) | (missing) | | smear | 16:44 | [facility] | COMMENTS | | | | finding | | Hospital | | | | | identificati | | | | | | | on by light | | | | | | | microscopy | | | | | | + + + + + + + + + | Blood blood smear finding identification by light microscopy | + + + + + + + + + | Blood blood | 2023-01-02 | [facility] | SEE COMMENT | (missing) | (missing) | | smear | 11:40 | [facility] | | | | | finding | | Hospital | | | | | identificati | | | | | | | on by light | | | | | | | microscopy | | | | | | + + + + + + + + + | Reflexive urine bacterial culture | + + + + + +------+ + + | Reflexive | 2022-09-13 | [facility] | No | (missing) | (missing) | | urine | 04:26 | [facility] | | | | bacterial | | [facility] | | | | | culture | | | | | | + + + +------+ + + | Reflexive | 2022-09-14 | [facility] | No | (missing) | (missing) | | urine | 00:55 | [facility] | | | | | bacterial | | [facility] | | | | | culture | | | | | | + + + +------+ + + + + | INR in Platelet poor plasma by Coagulation assay | + + + + + +--------+ + + | INR in | 2023-01-02 | [facility] | 1.05 | (missing) | (missing) | | Platelet | 11:40 | [facility] | | | | | poor plasma | | Hospital | | | | | by | | | | | | | Coagulation | | | | | | | assay | | | | | | + + + +--------+ + + + + | INR in Platelet poor plasma by Coagulation assay | + + + + + +--------+ + + | INR in | 2022-09-14 | [facility] | 1.08 | (missing) | (missing) | | Platelet | 00:08 | [facility] | | | | | poor plasma | | Hospital | | | | | by | | | | | | | Coagulation | | | | | | | assay | | | | | | + + + +--------+ + + + + | INR in Platelet poor plasma by Coagulation assay | + + + + + +--------+ + + | INR in | 2022-09-13 | [facility] | 1.03 | (missing) | (missing) | | Platelet | 01:30 | [facility] | | | | | poor plasma | | Hospital | | | | | by | | | | | | | Coagulation | | | | | | | assay | | | | | | + + + +--------+ + + + + | Blood leukocytes automated count (number/volume) | + + + + + +-------+ + + | Blood | 2022-10-15 | [facility] | 9.7 | (missing) | (missing) | | leukocytes | 05:26 | [facility] | | | | | automated | | [facility] | | | | | count | | | | | | | (number/volu | | | | | | | me) | | | | | | + + + +-------+ + + | Blood | 2023-01-01 | [facility] | 7.6 | (missing) | (missing) | | leukocytes | 16:44 | [facility] | | | | | automated | | [facility] | | | | | count | | | | | | | (number/volu | | | | | | | me) | | | | | | + + + +-------+ + + + + | Blood leukocytes automated count (number/volume) | + + + + + +-------+ + + | Blood | 2023-01-02 | [facility] | 5.0 | (missing) | (missing) | | leukocytes | 11:40 | [facility] | | | | | automated | | [facility] | | | | | count | | | | | | | (number/volu | | | | | | | me) | | | | | | + + + +-------+ + + + + | Blood leukocytes automated count (number/volume) | + + + + + +-------+ + + | Blood | 2022-09-14 | [facility] | 9.9 | (missing) | (missing) | | leukocytes | 00:08 | [facility] | | | | | automated | | [facility] | | | | | count | | | | | | | (number/volu | | | | | | | me) | | | | | | + + + +-------+ + + + + | Blood leukocytes automated count (number/volume) | + + + + + +-------+ + + | Blood | 2022-09-13 | [facility] | 6.8 | (missing) | (missing) | | leukocytes | 01:30 | [facility] | | | | | automated | | [facility] | | | | | count | | | | | | | (number/volu | | | | | | | me) | | | | | | + + + +-------+ + + + + | Serum or plasma alkaline phosphatase measurement (enzymatic activity/volume) | + + + + + +------+ + + | Serum or | 2023-01-01 | [facility] | 72 | (missing) | (missing) | | plasma | 16:44 | [facility] | | | | | alkaline | | Hospital | | | | | phosphatase | | | | | | | measurement | | | | | | | (enzymatic | | | | | | | activity/vol | | | | | | | ume) | | | | | | + + + +------+ + + + + | Serum or plasma alkaline phosphatase measurement (enzymatic activity/volume) | + + + + + +------+ + + | Serum or | 2023-01-02 | [facility] | 75 | (missing) | (missing) | | plasma | 11:40 | [facility] | | | | | alkaline | | Hospital | | | | | phosphatase | | | | | | | measurement | | | | | | | (enzymatic | | | | | | | activity/vol | | | | | | | ume) | | | | | | + + + +------+ + + + + | Serum or plasma alkaline phosphatase measurement (enzymatic activity/volume) | + + + + + +------+ + + | Serum or | 2022-09-14 | [facility] | 56 | (missing) | (missing) | | plasma | 00:08 | [facility] | | | | | alkaline | | [facility] | | | | | phosphatase | | | | | | | measurement | | | | | | | (enzymatic | | | | | | | activity/vol | | | | | | | ume) | | | | | | + + + +------+ + + + + | Serum or plasma alkaline phosphatase measurement (enzymatic activity/volume) | + + + + + +------+ + + | Serum or | 2022-09-13 | [facility] | 64 | (missing) | (missing) | | plasma | 01:30 | [facility] | | | | | alkaline | | [facility] | | | | | phosphatase | | | | | | | measurement | | | | | | | (enzymatic | | | | | | | activity/vol | | | | | | | ume) | | | | | | + + + +------+ + + + + | Automated blood basophil count as percentage of total leukocytes | + + + + + +-------+ + + | Automated | 2022-10-15 | [facility] | 0.2 | (missing) | (missing) | | blood | 05:26 | [facility] | | | | | basophil | | Hospital | | | | | count as | | | | | | | percentage | | | | | | | of total | | | | | | | leukocytes | | | | | | + + + +-------+ + + + + | Automated blood basophil count as percentage of total leukocytes | + + + + + +-------+ + + | Automated | 2023-01-01 | [facility] | 0.4 | (missing) | (missing) | | blood | 16:44 | [facility] | | | | | basophil | | Hospital | | | | | count as | | | | | | | percentage | | | | | | | of total | | | | | | | leukocytes | | | | | | + + + +-------+ + + + + | Automated blood basophil count as percentage of total leukocytes | + + + + + +-------+ + + | Automated | 2023-01-02 | [facility] | 0.2 | (missing) | (missing) | | blood | 11:40 | [facility] | | | | | basophil | | Hospital | | | | | count as | | | | | | | percentage | | | | | | | of total | | | | | | | leukocytes | | | | | | + + + +-------+ + + + + | Automated blood basophil count as percentage of total leukocytes | + + + + + +-------+ + + | Automated | 2022-09-14 | [facility] | 0.2 | (missing) | (missing) | | blood | 00:08 | [facility] | | | | | basophil | | Hospital | | | | | count as | | | | | | | percentage | | | | | | | of total | | | | | | | leukocytes | | | | | | + + + +-------+ + + + + | Automated blood basophil count as percentage of total leukocytes | + + + + + +-------+ + + | Automated | 2022-09-13 | [facility] | 0.2 | (missing) | (missing) | | blood | 01:30 | [facility] | | | | | basophil | | Hospital | | | | | count as | | | | | | | percentage | | | | | | | of total | | | | | | | leukocytes | | | | | | + + + +-------+ + + + + | Automated blood eosinophil count as percentage of total leukocytes | + + + + + +-------+ + + | Automated | 2022-10-15 | [facility] | 0.8 | (missing) | (missing) | | blood | 05:26 | [facility] | | | | | eosinophil | | [facility] | | | | | count as | | | | | | | percentage | | | | | | | of total | | | | | | | leukocytes | | | | | | + + + +-------+ + + + + | Automated blood eosinophil count as percentage of total leukocytes | + + + + + +-------+ + + | Automated | 2023-01-01 | [facility] | 0.4 | (missing) | (missing) | | blood | 16:44 | [facility] | | | | | eosinophil | | Hospital | | | | | count as | | | | | | | percentage | | | | | | | of total | | | | | | | leukocytes | | | | | | + + + +-------+ + + + + | Automated blood eosinophil count as percentage of total leukocytes | + + + + + +-------+ + + | Automated | 2023-01-02 | [facility] | 0.6 | (missing) | (missing) | | blood | 11:40 | [facility] | | | | | eosinophil | | Hospital | | | | | count as | | | | | | | percentage | | | | | | | of total | | | | | | | leukocytes | | | | | | + + + +-------+ + + + + | Automated blood eosinophil count as percentage of total leukocytes | + + + + + +-------+ + + | Automated | 2022-09-14 | [facility] | 0.4 | (missing) | (missing) | | blood | 00:08 | [facility] | | | | | eosinophil | | Hospital | | | | | count as | | | | | | | percentage | | | | | | | of total | | | | | | | leukocytes | | | | | | + + + +-------+ + + + + | Automated blood eosinophil count as percentage of total leukocytes | + + + + + +-------+ + + | Automated | 2022-09-13 | [facility] | 0.3 | (missing) | (missing) | | blood | 01:30 | [facility] | | | | | eosinophil | | Hospital | | | | | count as | | | | | | | percentage | | | | | | | of total | | | | | | | leukocytes | | | | | | + + + +-------+ + + + + | Blood hemoglobin measurement (mass/volume) | + + + + + +--------+ + + | Blood | 2022-10-15 | [facility] | 10.8 | (missing) | (missing) | | hemoglobin | 05:26 | [facility] | | | | | measurement | | Hospital | | | | | (mass/volume | | | | | | | ) | | | | | | + + + +--------+ + + + + | Blood hemoglobin measurement (mass/volume) | + + + + + +--------+ + + | Blood | 2023-01-02 | [facility] | 12.1 | (missing) | (missing) | | hemoglobin | 11:40 | [facility] | | | | | measurement | | Hospital | | | | | (mass/volume | | | | | | | ) | | | | | | + + + +--------+ + + + + | Blood hemoglobin measurement (mass/volume) | + + + + + +--------+ + + | Blood | 2022-09-14 | [facility] | 13.0 | (missing) | (missing) | | hemoglobin | 00:08 | [facility] | | | | | measurement | | Hospital | | | | | (mass/volume | | | | | | | ) | | | | | | + + + +--------+ + + + + | Blood hemoglobin measurement (mass/volume) | + + + + + +--------+ + + | Blood | 2022-09-13 | [facility] | 13.8 | (missing) | (missing) | | hemoglobin | 01:30 | [facility] | | | | | measurement | | Hospital | | | | | (mass/volume | | | | | | | ) | | | | | | + + + +--------+ + + + + | Blood hemoglobin measurement (mass/volume) | + + + + + +--------+ + + | Blood | 2023-01-01 | [facility] | 13.6 | (missing) | (missing) | | hemoglobin | 16:44 | [facility] | | | | | measurement | | Hospital | | | | | (mass/volume | | | | | | | ) | | | | | | + + + +--------+ + + + + | Automated blood hematocrit | + + + + + +--------+ + + | Automated | 2023-01-02 | [facility] | 37.8 | (missing) | (missing) | | blood | 11:40 | [facility] | | | | | hematocrit | | [facility] | | | | + + + +--------+ + + + + | Automated blood hematocrit | + + + + + +--------+ + + | Automated | 2022-09-14 | [facility] | 38.7 | (missing) | (missing) | | blood | 00:08 | [facility] | | | | | hematocrit | | [facility] | | | | + + + +--------+ + + + + | Automated blood hematocrit | + + + + + +--------+ + + | Automated | 2022-09-13 | [facility] | 42.8 | (missing) | (missing) | | blood | 01:30 | [facility] | | | | | hematocrit | | [facility] | | | | + + + +--------+ + + + + | Automated blood hematocrit | + + + + + +--------+ + + | Automated | 2022-10-15 | [facility] | 31.3 | (missing) | (missing) | | blood | 05:26 | [facility] | | | | | hematocrit | | [facility] | | | | + + + +--------+ + + + + | Automated blood hematocrit | + + + + + +--------+ + + | Automated | 2023-01-01 | [facility] | 41.6 | (missing) | (missing) | | blood | 16:44 | [facility] | | | | | hematocrit | | [facility] | | | | + + + +--------+ + + + + | Automated blood lymphocyte count as percentage ot total leukocytes | + + + + + +--------+ + + | Automated | 2022-10-15 | [facility] | 22.3 | (missing) | (missing) | | blood | 05:26 | [facility] | | | | | lymphocyte | | Hospital | | | | | count as | | | | | | | percentage | | | | | | | ot total | | | | | | | leukocytes | | | | | | + + + +--------+ + + + + | Automated blood lymphocyte count as percentage ot total leukocytes | + + + + + +--------+ + + | Automated | 2023-01-01 | [facility] | 36.5 | (missing) | (missing) | | blood | 16:44 | [facility] | | | | | lymphocyte | | Hospital | | | | | count as | | | | | | | percentage | | | | | | | ot total | | | | | | | leukocytes | | | | | | + + + +--------+ + + + + | Automated blood lymphocyte count as percentage ot total leukocytes | + + + + + +--------+ + + | Automated | 2023-01-02 | [facility] | 37.2 | (missing) | (missing) | | blood | 11:40 | [facility] | | | | | lymphocyte | | [facility] | | | | | count as | | | | | | | percentage | | | | | | | ot total | | | | | | | leukocytes | | | | | | + + + +--------+ + + + + | Automated blood lymphocyte count as percentage ot total leukocytes | + + + + + +--------+ + + | Automated | 2022-09-14 | [facility] | 21.2 | (missing) | (missing) | | blood | 00:08 | [facility] | | | | | lymphocyte | | [facility] | | | | | count as | | | | | | | percentage | | | | | | | ot total | | | | | | | leukocytes | | | | | | + + + +--------+ + + + + | Automated blood lymphocyte count as percentage ot total leukocytes | + + + + + +--------+ + + | Automated | 2022-09-13 | [facility] | 43.8 | (missing) | (missing) | | blood | 01:30 | [facility] | | | | | lymphocyte | | Hospital | | | | | count as | | | | | | | percentage | | | | | | | ot total | | | | | | | leukocytes | | | | | | + + + +--------+ + + + + | Automated blood neutrophil count as percentage of total leukocytes | + + + + + +--------+ + + | Automated | 2022-10-15 | [facility] | 71.9 | (missing) | (missing) | | blood | 05:26 | [facility] | | | | | neutrophil | | Hospital | | | | | count as | | | | | | | percentage | | | | | | | of total | | | | | | | leukocytes | | | | | | + + + +--------+ + + + + | Automated blood neutrophil count as percentage of total leukocytes | + + + + + +--------+ + + | Automated | 2023-01-01 | [facility] | 59.2 | (missing) | (missing) | | blood | 16:44 | [facility] | | | | | neutrophil | | [facility] | | | | | count as | | | | | | | percentage | | | | | | | of total | | | | | | | leukocytes | | | | | | + + + +--------+ + + + + | Automated blood neutrophil count as percentage of total leukocytes | + + + + + +--------+ + + | Automated | 2023-01-02 | [facility] | 57.9 | (missing) | (missing) | | blood | 11:40 | [facility] | | | | | neutrophil | | Hospital | | | | | count as | | | | | | | percentage | | | | | | | of total | | | | | | | leukocytes | | | | | | + + + +--------+ + + + + | Automated blood neutrophil count as percentage of total leukocytes | + + + + + +--------+ + + | Automated | 2022-09-14 | [facility] | 70.8 | (missing) | (missing) | | blood | 00:08 | [facility] | | | | | neutrophil | | Hospital | | | | | count as | | | | | | | percentage | | | | | | | of total | | | | | | | leukocytes | | | | | | + + + +--------+ + + + + | Automated blood neutrophil count as percentage of total leukocytes | + + + + + +--------+ + + | Automated | 2022-09-13 | [facility] | 50.2 | (missing) | (missing) | | blood | 01:30 | [facility] | | | | | neutrophil | | Hospital | | | | | count as | | | | | | | percentage | | | | | | | of total | | | | | | | leukocytes | | | | | | + + + +--------+ + + + + | Automated blood platelet count (count/volume) | + + + + + +-------+ + + | Automated | 2023-01-01 | [facility] | 322 | (missing) | (missing) | | blood | 16:44 | [facility] | | | | | platelet | | Hospital | | | | | count | | | | | | | (count/volum | | | | | | | e) | | | | | | + + + +-------+ + + + + | Automated blood platelet count (count/volume) | + + + + + +-------+ + + | Automated | 2023-01-02 | [facility] | 279 | (missing) | (missing) | | blood | 11:40 | [facility] | | | | | platelet | | [facility] | | | | | count | | | | | | | (count/volum | | | | | | | e) | | | | | | + + + +-------+ + + + + | Automated blood platelet count (count/volume) | + + + + + +-------+ + + | Automated | 2022-09-14 | [facility] | 225 | (missing) | (missing) | | blood | 00:08 | [facility] | | | | | platelet | | Hospital | | | | | count | | | | | | | (count/volum | | | | | | | e) | | | | | | + + + +-------+ + + + + | Automated blood platelet count (count/volume) | + + + + + +-------+ + + | Automated | 2022-09-13 | [facility] | 276 | (missing) | (missing) | | blood | 01:30 | [facility] | | | | | platelet | | [facility] | | | | | count | | | | | | | (count/volum | | | | | | | e) | | | | | | + + + +-------+ + + + + | Automated blood platelet count (count/volume) | + + + + + +-------+ + + | Automated | 2022-10-15 | [facility] | 167 | (missing) | (missing) | | blood | 05:26 | [facility] | | | | | platelet | | [facility] | | | | | count | | | | | | | (count/volum | | | | | | | e) | | | | | | + + + +-------+ + + + + | Automated erythrocyte mean corpuscular hemoglobin (mass per erythrocyte) | + + + + + +--------+ + + | Automated | 2023-01-02 | [facility] | 30.0 | (missing) | (missing) | | erythrocyte | 11:40 | [facility] | | | | | mean | | [facility] | | | | | corpuscular | | | | | | | hemoglobin | | | | | | | (mass per | | | | | | | erythrocyte) | | | | | | | | | | | | | + + + +--------+ + + + + | Automated erythrocyte mean corpuscular hemoglobin (mass per erythrocyte) | + + + + + +--------+ + + | Automated | 2022-09-14 | [facility] | 30.3 | (missing) | (missing) | | erythrocyte | 00:08 | [facility] | | | | | mean | | Hospital | | | | | corpuscular | | | | | | | hemoglobin | | | | | | | (mass per | | | | | | | erythrocyte) | | | | | | | | | | | | | + + + +--------+ + + + + | Automated erythrocyte mean corpuscular hemoglobin (mass per erythrocyte) | + + + + + +--------+ + + | Automated | 2022-09-13 | [facility] | 29.6 | (missing) | (missing) | | erythrocyte | 01:30 | [facility] | | | | | mean | | [facility] | | | | | corpuscular | | | | | | | hemoglobin | | | | | | | (mass per | | | | | | | erythrocyte) | | | | | | | | | | | | | + + + +--------+ + + + + | Automated erythrocyte mean corpuscular hemoglobin (mass per erythrocyte) | + + + + + +--------+ + + | Automated | 2022-10-15 | [facility] | 30.7 | (missing) | (missing) | | erythrocyte | 05:26 | [facility] | | | | | mean | | [facility] | | | | | corpuscular | | | | | | | hemoglobin | | | | | | | (mass per | | | | | | | erythrocyte) | | | | | | | | | | | | | + + + +--------+ + + + + | Automated erythrocyte mean corpuscular hemoglobin (mass per erythrocyte) | + + + + + +--------+ + + | Automated | 2023-01-01 | [facility] | 30.2 | (missing) | (missing) | | erythrocyte | 16:44 | [facility] | | | | | mean | | [facility] | | | | | corpuscular | | | | | | | hemoglobin | | | | | | | (mass per | | | | | | | erythrocyte) | | | | | | | | | | | | | + + + +--------+ + + + + | Automated erythrocyte mean corpuscular hemoglobin concentration measurement | | (mass/volume) | + + + + + +--------+ + + | Automated | 2023-01-02 | [facility] | 32.0 | (missing) | (missing) | | erythrocyte | 11:40 | [facility] | | | | | mean | | [facility] | | | | | corpuscular | | | | | | | hemoglobin | | | | | | | concentratio | | | | | | | n | | | | | | | measurement | | | | | | | (mass/volume | | | | | | | ) | | | | | | + + + +--------+ + + + + | Automated erythrocyte mean corpuscular hemoglobin concentration measurement | | (mass/volume) | + + + + + +--------+ + + | Automated | 2022-09-14 | [facility] | 33.6 | (missing) | (missing) | | erythrocyte | 00:08 | [facility] | | | | | mean | | [facility] | | | | | corpuscular | | | | | | | hemoglobin | | | | | | | concentratio | | | | | | | n | | | | | | | measurement | | | | | | | (mass/volume | | | | | | | ) | | | | | | + + + +--------+ + + + + | Automated erythrocyte mean corpuscular hemoglobin concentration measurement | | (mass/volume) | + + + + + +--------+ + + | Automated | 2022-09-13 | [facility] | 32.2 | (missing) | (missing) | | erythrocyte | 01:30 | [facility] | | | | | mean | | [facility] | | | | | corpuscular | | | | | | | hemoglobin | | | | | | | concentratio | | | | | | | n | | | | | | | measurement | | | | | | | (mass/volume | | | | | | | ) | | | | | | + + + +--------+ + + + + | Automated erythrocyte mean corpuscular hemoglobin concentration measurement | | (mass/volume) | + + + + + +--------+ + + | Automated | 2022-10-15 | [facility] | 34.4 | (missing) | (missing) | | erythrocyte | 05:26 | [facility] | | | | | mean | | [facility] | | | | | corpuscular | | | | | | | hemoglobin | | | | | | | concentratio | | | | | | | n | | | | | | | measurement | | | | | | | (mass/volume | | | | | | | ) | | | | | | + + + +--------+ + + + + | Automated erythrocyte mean corpuscular hemoglobin concentration measurement | | (mass/volume) | + + + + + +--------+ + + | Automated | 2023-01-01 | [facility] | 32.6 | (missing) | (missing) | | erythrocyte | 16:44 | [facility] | | | | | mean | | [facility] | | | | | corpuscular | | | | | | | hemoglobin | | | | | | | concentratio | | | | | | | n | | | | | | | measurement | | | | | | | (mass/volume | | | | | | | ) | | | | | | + + + +--------+ + + + + | Automated erythrocyte mean corpuscular volume | + + + + + +--------+ + + | Automated | 2023-01-02 | [facility] | 93.7 | (missing) | (missing) | | erythrocyte | 11:40 | [facility] | | | | | mean | | [facility] | | | | | corpuscular | | | | | | | volume | | | | | | + + + +--------+ + + + + | Automated erythrocyte mean corpuscular volume | + + + + + +--------+ + + | Automated | 2022-09-14 | [facility] | 90.0 | (missing) | (missing) | | erythrocyte | 00:08 | [facility] | | | | | mean | | [facility] | | | | | corpuscular | | | | | | | volume | | | | | | + + + +--------+ + + + + | Automated erythrocyte mean corpuscular volume | + + + + + +--------+ + + | Automated | 2022-09-13 | [facility] | 91.8 | (missing) | (missing) | | erythrocyte | 01:30 | [facility] | | | | | mean | | [facility] | | | | | corpuscular | | | | | | | volume | | | | | | + + + +--------+ + + + + | Automated erythrocyte mean corpuscular volume | + + + + + +--------+ + + | Automated | 2022-10-15 | [facility] | 89.3 | (missing) | (missing) | | erythrocyte | 05:26 | [facility] | | | | | mean | | [facility] | | | | | corpuscular | | | | | | | volume | | | | | | + + + +--------+ + + + + | Automated erythrocyte mean corpuscular volume | + + + + + +--------+ + + | Automated | 2023-01-01 | [facility] | 92.7 | (missing) | (missing) | | erythrocyte | 16:44 | [facility] | | | | | mean | | [facility] | | | | | corpuscular | | | | | | | volume | | | | | | + + + +--------+ + + + + | Blood erythrocytes automated count (number/volume) | + + + + + +--------+ + + | Blood | 2022-10-15 | [facility] | 3.51 | (missing) | (missing) | | erythrocytes | 05:26 | [facility] | | | | | automated | | Hospital | | | | | count | | | | | | | (number/volu | | | | | | | me) | | | | | | + + + +--------+ + + + + | Blood erythrocytes automated count (number/volume) | + + + + + +--------+ + + | Blood | 2023-01-01 | [facility] | 4.49 | (missing) | (missing) | | erythrocytes | 16:44 | [facility] | | | | | automated | | [facility] | | | | | count | | | | | | | (number/volu | | | | | | | me) | | | | | | + + + +--------+ + + + + | Blood erythrocytes automated count (number/volume) | + + + + + +--------+ + + | Blood | 2023-01-02 | [facility] | 4.03 | (missing) | (missing) | | erythrocytes | 11:40 | [facility] | | | | | automated | | [facility] | | | | | count | | | | | | | (number/volu | | | | | | | me) | | | | | | + + + +--------+ + + + + | Blood erythrocytes automated count (number/volume) | + + + + + +--------+ + + | Blood | 2022-09-14 | [facility] | 4.30 | (missing) | (missing) | | erythrocytes | 00:08 | [facility] | | | | | automated | | [facility] | | | | | count | | | | | | | (number/volu | | | | | | | me) | | | | | | + + + +--------+ + + + + | Blood erythrocytes automated count (number/volume) | + + + + + +--------+ + + | Blood | 2022-09-13 | [facility] | 4.66 | (missing) | (missing) | | erythrocytes | 01:30 | [facility] | | | | | automated | | [facility] | | | | | count | | | | | | | (number/volu | | | | | | | me) | | | | | | + + + +--------+ + + + + | Automated casts count in urine sediment by microscopy low power field (number/area) | + + + + + + + + + | Automated | 2022-09-13 | [facility] | HYALINE 1+ | (missing) | (missing) | | casts count | 04:26 | [facility] | | | | | in urine | | Hospital | | | | | sediment by | | | | | | | microscopy | | | | | | | low power | | | | | | | field | | | | | | | (number/area | | | | | | | ) | | | | | | + + + + + + + | Automated | 2022-09-14 | [facility] | GRANULAR 1+ | (missing) | (missing) | | casts count | 00:55 | [facility] | | | | | in urine | | Hospital | | | | | sediment by | | | | | | | microscopy | | | | | | | low power | | | | | | | field | | | | | | | (number/area | | | | | | | ) | | | | | | + + + + + + + | Automated | 2022-09-14 | [facility] | HYALINE 1+ | (missing) | (missing) | | casts count | 00:55 | [facility] | | | | | in urine | | Hospital | | | | | sediment by | | | | | | | microscopy | | | | | | | low power | | | | | | | field | | | | | | | (number/area | | | | | | | ) | | | | | | + + + + + + + + + | Glomerular filtration rate/1.73 sq M.predicted [Volume Rate/Area] inSerum, Plasma or | | Blood by Creatinine-based formula (CKD-EPI 2020) | + + + + + +-------+ + + | Glomerular | 2022-10-15 | [facility] | 114 | (missing) | (missing) | | filtration | 05:26 | [facility] | | | | | rate/1.73 sq | | Hospital | | | | | M.predicted | | | | | | | [Volume | | | | | | | Rate/Area] | | | | | | | inSerum, | | | | | | | Plasma or | | | | | | | Blood by | | | | | | | Creatinine-b | | | | | | | ased formula | | | | | | | (CKD-EPI | | | | | | | 2020) | | | | | | + + + +-------+ + + + + | Glomerular filtration rate/1.73 sq M.predicted [Volume Rate/Area] inSerum, Plasma or | | Blood by Creatinine-based formula (CKD-EPI 2020) | + + + + + +-------+ + + | Glomerular | 2023-01-01 | [facility] | 109 | (missing) | (missing) | | filtration | 16:44 | [facility] | | | | | rate/1.73 sq | | Hospital | | | | | M.predicted | | | | | | | [Volume | | | | | | | Rate/Area] | | | | | | | inSerum, | | | | | | | Plasma or | | | | | | | Blood by | | | | | | | Creatinine-b | | | | | | | ased formula | | | | | | | (CKD-EPI | | | | | | | 2020) | | | | | | + + + +-------+ + + + + | Glomerular filtration rate/1.73 sq M.predicted [Volume Rate/Area] inSerum, Plasma or | | Blood by Creatinine-based formula (CKD-EPI 2020) | + + + + + +-------+ + + | Glomerular | 2023-01-02 | [facility] | 108 | (missing) | (missing) | | filtration | 11:40 | [facility] | | | | | rate/1.73 sq | | Hospital | | | | | M.predicted | | | | | | | [Volume | | | | | | | Rate/Area] | | | | | | | inSerum, | | | | | | | Plasma or | | | | | | | Blood by | | | | | | | Creatinine-b | | | | | | | ased formula | | | | | | | (CKD-EPI | | | | | | | 2020) | | | | | | + + + +-------+ + + + + | Glomerular filtration rate/1.73 sq M.predicted [Volume Rate/Area] inSerum, Plasma or | | Blood by Creatinine-based formula (CKD-EPI 2020) | + + + + + +-------+ + + | Glomerular | 2022-09-14 | [facility] | 106 | (missing) | (missing) | | filtration | 00:08 | [facility] | | | | | rate/1.73 sq | | Hospital | | | | | M.predicted | | | | | | | [Volume | | | | | | | Rate/Area] | | | | | | | inSerum, | | | | | | | Plasma or | | | | | | | Blood by | | | | | | | Creatinine-b | | | | | | | ased formula | | | | | | | (CKD-EPI | | | | | | | 2020) | | | | | | + + + +-------+ + + + + | Glomerular filtration rate/1.73 sq M.predicted [Volume Rate/Area] inSerum, Plasma or | | Blood by Creatinine-based formula (CKD-EPI 2020) | + + + + + +------+ + + | Glomerular | 2022-09-13 | [facility] | 88 | (missing) | (missing) | | filtration | 01:30 | [facility] | | | | | rate/1.73 sq | | [facility] | | | | | M.predicted | | | | | | | [Volume | | | | | | | Rate/Area] | | | | | | | inSerum, | | | | | | | Plasma or | | | | | | | Blood by | | | | | | | Creatinine-b | | | | | | | ased formula | | | | | | | (CKD-EPI | | | | | | | 2020) | | | | | | + + + +------+ + + Social History + + + + | date | description | facility | + + + + | 2022-06-14 00:00 | Former smoker | [facility] | + + + + | 2022-06-21 00:00 | Former smoker | [facility] | + + + + | 2022-09-13 00:00 | Former smoker | [facility] | + + + + | 2022-09-14 00:00 | Former smoker | [facility] | + + + + | 2022-10-15 00:00 | Former smoker | [facility] | + + + + | 2023-01-01 00:00 | Former smoker | [facility] | + + + + | 2023-01-02 00:00 | Former smoker | [facility] | + + + + Vital Signs + + + +---------+ | date | measurement | value | units | + + + +---------+ | 2022-06-14 00:00 | BMI | 18.4 | kg/m2 | + + + +---------+ | 2022-06-14 00:00 | BP_diastolic | 82 | mmHg | + + + +---------+ | 2022-06-14 00:00 | BP_systolic | 136 | mmHg | + + + +---------+ | 2022-06-14 00:00 | heart_rate | 76 | /min | + + + +---------+ | 2022-06-14 00:00 | height_metric | 177.8 | cm | + + + +---------+ | 2022-06-14 00:00 | height_standard | 70 | in | + + + +---------+ | 2022-06-14 00:00 | o2_saturation | 97 | % | + + + +---------+ | 2022-06-14 00:00 | respiration_rate | 17 | /min | + + + +---------+ | 2022-06-14 00:00 | temperature_metric | 37.17 | C | | | | | | + + + +---------+ | 2022-06-14 00:00 | | 98.9 | F | | | temperature_standar | | | | | d | | | + + + +---------+ | 2022-06-14 00:00 | weight_metric | 58.2 | kg | + + + +---------+ | 2022-06-14 00:00 | weight_standard | 128.31 | lb | + + + +---------+ | 2022-06-21 00:00 | BMI | 18.5 | kg/m2 | + + + +---------+ | 2022-06-21 00:00 | BP_diastolic | 73 | mmHg | + + + +---------+ | 2022-06-21 00:00 | BP_systolic | 105 | mmHg | + + + +---------+ | 2022-06-21 00:00 | heart_rate | 76 | /min | + + + +---------+ | 2022-06-21 00:00 | height_metric | 177.8 | cm | + + + +---------+ | 2022-06-21 00:00 | height_standard | 70 | in | + + + +---------+ | 2022-06-21 00:00 | o2_saturation | 99 | % | + + + +---------+ | 2022-06-21 00:00 | respiration_rate | 16 | /min | + + + +---------+ | 2022-06-21 00:00 | temperature_metric | 37.22 | C | | | | | | + + + +---------+ | 2022-06-21 00:00 | | 99 | F | | | temperature_standar | | | | | d | | | + + + +---------+ | 2022-06-21 00:00 | weight_metric | 58.51 | kg | + + + +---------+ | 2022-06-21 00:00 | weight_standard | 128.99 | lb | + + + +---------+ | 2022-06-21 00:00 | weight_standard | 129 | lb | + + + +---------+ | 2022-09-13 00:00 | BMI | 18.6 | kg/m2 | + + + +---------+ | 2022-09-13 00:00 | BP_diastolic | 83 | mmHg | + + + +---------+ | 2022-09-13 00:00 | BP_systolic | 139 | mmHg | + + + +---------+ | 2022-09-13 00:00 | heart_rate | 99 | /min | + + + +---------+ | 2022-09-13 00:00 | height_metric | 177.8 | cm | + + + +---------+ | 2022-09-13 00:00 | height_standard | 70 | in | + + + +---------+ | 2022-09-13 00:00 | o2_saturation | 97 | % | + + + +---------+ | 2022-09-13 00:00 | respiration_rate | 17 | /min | + + + +---------+ | 2022-09-13 00:00 | temperature_metric | 37.11 | C | | | | | | + + + +---------+ | 2022-09-13 00:00 | | 98.8 | F | | | temperature_standar | | | | | d | | | + + + +---------+ | 2022-09-13 00:00 | weight_metric | 58.65 | kg | + + + +---------+ | 2022-09-13 00:00 | weight_metric | 58.66 | kg | + + + +---------+ | 2022-09-13 00:00 | weight_standard | 129.31 | lb | + + + +---------+ | 2022-09-13 00:00 | weight_standard | 129.32 | lb | + + + +---------+ | 2022-09-14 00:00 | BMI | 18.5 | kg/m2 | + + + +---------+ | 2022-09-14 00:00 | BP_diastolic | 73 | mmHg | + + + +---------+ | 2022-09-14 00:00 | BP_systolic | 98 | mmHg | + + + +---------+ | 2022-09-14 00:00 | heart_rate | 107 | /min | + + + +---------+ | 2022-09-14 00:00 | height_metric | 177.8 | cm | + + + +---------+ | 2022-09-14 00:00 | height_standard | 70 | in | + + + +---------+ | 2022-09-14 00:00 | o2_saturation | 96 | % | + + + +---------+ | 2022-09-14 00:00 | respiration_rate | 20 | /min | + + + +---------+ | 2022-09-14 00:00 | temperature_metric | 36.83 | C | | | | | | + + + +---------+ | 2022-09-14 00:00 | | 98.3 | F | | | temperature_standar | | | | | d | | | + + + +---------+ | 2022-09-14 00:00 | weight_metric | 58.51 | kg | + + + +---------+ | 2022-09-14 00:00 | weight_standard | 128.99 | lb | + + + +---------+ | 2022-09-14 00:00 | weight_standard | 129 | lb | + + + +---------+ | 2022-10-13 00:00 | BMI | 22.7 | kg/m2 | + + + +---------+ | 2022-10-13 00:00 | height_metric | 177.8 | cm | + + + +---------+ | 2022-10-13 00:00 | height_standard | 70 | in | + + + +---------+ | 2022-10-13 00:00 | weight_metric | 71.9 | kg | + + + +---------+ | 2022-10-13 00:00 | weight_standard | 158.51 | lb | + + + +---------+ | 2022-10-15 00:00 | BP_diastolic | 67 | mmHg | + + + +---------+ | 2022-10-15 00:00 | BP_systolic | 109 | mmHg | + + + +---------+ | 2022-10-15 00:00 | heart_rate | 68 | /min | + + + +---------+ | 2022-10-15 00:00 | o2_saturation | 100 | % | + + + +---------+ | 2022-10-15 00:00 | respiration_rate | 18 | /min | + + + +---------+ | 2022-10-15 00:00 | temperature_metric | 36.39 | C | | | | | | + + + +---------+ | 2022-10-15 00:00 | | 97.5 | F | | | temperature_standar | | | | | d | | | + + + +---------+ | 2023-01-01 00:00 | BMI | 22.7 | kg/m2 | + + + +---------+ | 2023-01-01 00:00 | BP_diastolic | 80 | mmHg | + + + +---------+ | 2023-01-01 00:00 | BP_systolic | 112 | mmHg | + + + +---------+ | 2023-01-01 00:00 | heart_rate | 86 | /min | + + + +---------+ | 2023-01-01 00:00 | height_metric | 177.8 | cm | + + + +---------+ | 2023-01-01 00:00 | height_standard | 70 | in | + + + +---------+ | 2023-01-01 00:00 | o2_saturation | 99 | % | + + + +---------+ | 2023-01-01 00:00 | respiration_rate | 17 | /min | + + + +---------+ | 2023-01-01 00:00 | temperature_metric | 37 | C | | | | | | + + + +---------+ | 2023-01-01 00:00 | | 98.6 | F | | | temperature_standar | | | | | d | | | + + + +---------+ | 2023-01-01 00:00 | weight_metric | 71.81 | kg | + + + +---------+ | 2023-01-01 00:00 | weight_standard | 158.31 | lb | + + + +---------+ | 2023-01-02 00:00 | BP_diastolic | 81 | mmHg | + + + +---------+ | 2023-01-02 00:00 | BP_systolic | 127 | mmHg | + + + +---------+ | 2023-01-02 00:00 | heart_rate | 107 | /min | + + + +---------+ | 2023-01-02 00:00 | height_metric | 177.8 | cm | + + + +---------+ | 2023-01-02 00:00 | height_standard | 70 | in | + + + +---------+ | 2023-01-02 00:00 | o2_saturation | 98 | % | + + + +---------+ | 2023-01-02 00:00 | respiration_rate | 16 | /min | + + + +---------+ | 2023-01-02 00:00 | temperature_metric | 36.72 | C | | | | | | + + + +---------+ | 2023-01-02 00:00 | | 98.1 | F | | | temperature_standar | | | | | d | | | + + + +---------+"
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
[~2023-04-03 09:52] MED LIST changes: +DIASTAT ACUDIAL1 EA PR
--- OUTSIDE RECORDS SUMMARY | 2023-04-03 09:56 | XMS ---
PreManage Notification: LEONOR LEVIN Security Newspaper Press Operator Apprentice Events No recent Security Events currently on file CRITERIA MET - PDMP CARE PROVIDERS KAREEM LOOLM Internal Medicine 09/16/2018-Current PHONE: Unknown Care Guidelines exist for the following facilities: [facility] ( 11/16/2019 ) Care History Medical/Surgical 09/16/2018 [facility] - Patient is currently established with [facility]. If patient is seen in the ED during business hours. Please contact CHWs at [facility]. Care Recommendation: This patient has had [...] providing care. E.D. VISIT COUNT (12 MO.) 8 BRIANNA Shore TOTAL 8 NOTE: Visits indicate total known visits. ED/UCC VISIT TRACKING (12 MO.) 04/03/2023 09:53 BRIANNA Driscoll [place] TYPE: Emergency COMPLAINT: - UNRESPONSIVE, BREATHING 01/02/2023 11:27 BRIANNA Driscoll [place] TYPE: Emergency COMPLAINT: - MEDICAL CLEARANCE DIAGNOSES: - Other penitentiary (current) drug therapy - Personal history of nicotine dependence - Unspecified convulsions 01/01/2023 14:19 BRIANNA Driscoll [place] TYPE: Emergency COMPLAINT: - MEDICAL CLEARANCE DIAGNOSES: - Alcohol abuse with intoxication, unspecified - Blood alcohol level of 240 mg/100 ml or more - Other chief librarian music department (current) drug therapy - Personal history of nicotine dependence - Suicidal ideations 10/13/2022 10:57 BRIANNA Driscoll [place] TYPE: Emergency COMPLAINT: - POSSIBLE SEIZURE 09/14/2022 00:01 BRIANNA Driscoll [place] TYPE: Emergency COMPLAINT: - AMS DIAGNOSES: - Altered mental status, unspecified - Other penitentiary (current) drug therapy - Personal history of nicotine dependence 09/13/2022 01:14 BRIANNA Driscoll [place] TYPE: Emergency COMPLAINT: - SEIZURE DIAGNOSES: - [facility] (current) use of anticoagulants - Other chief librarian music department (current) drug therapy - Patient's other noncompliance with medication regimen - Personal history of nicotine dependence - Personal history of traumatic brain injury - Unspecified convulsions 06/21/2022 10:26 BRIANNA Driscoll [place] TYPE: Emergency COMPLAINT: - WOUND CHECK DIAGNOSES: - 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 [facility] [place] TYPE: Critical Care COMPLAINT: - SEPSIS,PNEUMONIA,ALCOHOL [...] not intractable, without status epilepticus - Other penitentiary (current) drug therapy - Other penitentiary (current) drug therapy - Other specified postprocedural [...] - Urinary tract infection, site not specified [id number]
[2023-04-03 10:10] LABS: BASOPHILS 0.2 % (0-2); EOSINOPHILS 0.1 % (0-6); HEMOGLOBIN 13.9 g/dL (12.0-18.0); LYMPHOCYTES 26.2 % (24-44); MCH 30.9 (27-36); MCHC 31.5 g/dl (30-36); MCV 98.2 fl (81-99); MONOCYTES 2.3 % (0-12); NEUTROPHILS 71.2 % (39-80); PLATELET COUNT 320 K/uL (140-440); RBC 4.48 M/ul (4.3-5.7)
[2023-04-03 10:22] LABS: ALBUMIN 4.8 g/dL (3.4-5.0); ALBUMIN/GLOBULIN RATIO 1.41 (1.1-2.4); BILIRUBIN, TOTAL 0.4 ng/dL (0.2-1.0); BUN/CREATININE RATIO 16.21 (6.0-28.6); CALCIUM 8.5 mg/dL (8.5-10.1); CREATININE, SERUM 1.11 mg/dL (0.70-1.30); PROTEIN, TOTAL 8.2 g/dL (6.4-8.2)
[2023-04-03 11:39] LABS: BILIRUBIN, URINE NEGATIVE (negative); BLOOD/HGB, URINE TRACE-I (Negative); KETONE, URINE >=80 (Negative); LEUK ESTERASE, URINE NEGATIVE (negative); NITRITE, URINE NEGATIVE (negative); PH, URINE 5.5 (5-7)
[2023-04-03 11:43] LABS: AMPHETAMINES, UR NEGATIVE (NEGATIVE); BARBITURATES, UR NEGATIVE (NEGATIVE); BENZODIAZEPINES, UR NEGATIVE (NEGATIVE); BUPRENORPHINE,UR NEGATIVE (NEGATIVE); COCAINE, UR NEGATIVE (NEGATIVE); MARIJUANA (THC), UR POSITIVE (NEGATIVE); MDMA, UR NEGATIVE (NEGATIVE); METHADONE, UR NEGATIVE (NEGATIVE); METHAMPHETAMINE, UR NEGATIVE (NEGATIVE); OPIATES, UR NEGATIVE (NEGATIVE); OXYCODONE, UR NEGATIVE (NEGATIVE); PHENCYCLIDINE, UR NEGATIVE (NEGATIVE); TRICYCLIC ANTIDEPRESSANT, UR NEGATIVE (NEGATIVE)
[2023-04-03 11:49] LABS: BACTERIA, URINE RARE /hpf (negative); CRYSTALS, URINE NONE SEEN (0-1+); EPITHELIAL CELLS, URINE SQUAMOUS 1+ /lpf (0-1+); RED BLOOD CELLS, URINE 0-1 /hpf (0-5)
[2023-04-03 11:50] LABS: CASTS, URINE HYALINE 1+ \\lpf; COLLECTION TYPE, URINE CATH; REFLEX CULTURE, URINE No (No)
[2023-04-03 15:00] VITALS: BP 122/72
== END 2023-04-03 15:34 | disposition home or self-care (01) ==
LOC: ED 09:52
PROVIDERS: Emergency Medicine
DX: G40.909 Epilepsy, unspecified, not intractable, without status epilepticus (principal); Z87.891 Personal history of nicotine dependence; Z79.899 Other long term (current) drug therapy
CPT/HCPCS: 36415; 51701; 70450; 80053; 81001; 85025; 99284-25; A9270; G0480; J1953; J2250; J2405; J7030

== ENCOUNTER 2023-09-14 15:52 | Emergency (ER) | payer MEDICARE, OTHER ==
[~2023-09-14] VITALS: Ht 177.8 cm; Wt 60.9 kg
[2023-09-14 16:11] LABS: BASOPHILS 0.1 % (0-2); HEMATOCRIT 41.6 % (35.0-50.0); HEMOGLOBIN 13.8 g/dL (12.0-18.0); LYMPHOCYTES 3.2 % (24-44); MCH 31.9 (27-36); MCHC 33.1 g/dl (30-36); MCV 96.3 fl (81-99); MONOCYTES 5.8 % (0-12); NEUTROPHILS 90.9 % (39-80); PLATELET COUNT 298 K/uL (140-440); RBC 4.32 M/ul (4.3-5.7); RDW 13.9 (10.5-15.0)
[2023-09-14 16:27] LABS: ALBUMIN 4.3 g/dL (3.4-5.0); ALCOHOL, MEDICAL <3 ng/dL (<3); ALKALINE PHOSPHATASE 55 U/L (46-116); ALT (SGPT) 24 U/L (14-59); AST (SGOT) 32 U/L (15-37); BILIRUBIN, TOTAL 0.6 ng/dL (0.2-1.0); BUN/CREATININE RATIO 15.13 (6.0-28.6); CARBON DIOXIDE 17 mmol/L (21-32); CHLORIDE 100 mmol/L (98-107); CREATININE, SERUM 1.52 mg/dL (0.70-1.30); GLOMERULAR FILTRATION RATE,EST 55 mL/min (>60); PROTEIN, TOTAL 7.6 g/dL (6.4-8.2); UREA NITROGEN 23 mg/dL (7-18)
[2023-09-14] MEDS ORDERED: levETIRAcetam 500 MG/5 ML VIAL IV ONE (16:30)
[2023-09-14] MEDS ORDERED: LORazepam 2 MG/ML VIAL IV ONE (16:45)
[2023-09-14] MEDS ORDERED: SODIUM CHLORIDE 0.9% 1,000 ML IV PRN (17:00)
[2023-09-14 18:33] LABS: BILIRUBIN, URINE NEGATIVE (negative); BLOOD/HGB, URINE TRACE-I (Negative); KETONE, URINE >=80 (Negative); LEUK ESTERASE, URINE NEGATIVE (negative); NITRITE, URINE NEGATIVE (negative); PH, URINE 5.5 (5-7)
[2023-09-14 18:47] LABS: RED BLOOD CELLS, URINE 0-1 /hpf (0-5)
[2023-09-14 18:49] LABS: AMPHETAMINES, URINE NEGATIVE (NEGATIVE); BACTERIA, URINE RARE /hpf (negative); BARBITURATES, URINE NEGATIVE (NEGATIVE); BENZODIAZEPINE, URINE NEGATIVE (NEGATIVE); BUPRENORPHINE, URINE NEGATIVE (NEGATIVE); CANNABINOID, URINE POSITIVE (NEGATIVE); CASTS, URINE NONE SEEN \\lpf; COCAINE, URINE NEGATIVE (NEGATIVE); COLLECTION TYPE, URINE CLEAN CATCH; CRYSTALS, URINE URIC ACID 3+ (0-1+); ECSTASY, URINE POSITIVE (NEGATIVE); FENTANYL, URINE NEGATIVE (NEGATIVE); METHADONE, URINE NEGATIVE (NEGATIVE); OPIATES, URINE NEGATIVE (NEGATIVE); OXYCODONE, URINE NEGATIVE (NEGATIVE); PHENCYCLIDINE, URINE NEGATIVE (NEGATIVE); REFLEX CULTURE, URINE No (No)
[2023-09-14 21:05] VITALS: BP 117/70
== END 2023-09-14 21:05 | disposition home or self-care (01) ==
LOC: ED 15:52
PROVIDERS: Emergency Medicine
DX: G40.909 Epilepsy, unspecified, not intractable, without status epilepticus (principal); F32.A Depression, unspecified; Z87.820 Personal history of traumatic brain injury; Z87.891 Personal history of nicotine dependence; Z79.899 Other long term (current) drug therapy
CPT/HCPCS: 36415; 80053; 80307; 81001; 85025; 96374; 96375; 99284-25; G0480; J1953; J2060; J7030

== ENCOUNTER 2025-02-27 21:04 | Emergency (ER) | payer MEDICARE, OTHER, MEDICAID ==
[~2025-02-27] VITALS: Ht 177.8 cm; Wt 51.4 kg
[~2025-02-27 21:04] MED LIST changes: +DORZOLAMIDE-TIM10 ML OU; +HYDROXYZINE PAM25 MG PO; +LAMOTRIGINE150 MG PO; +LEVETIRACETAM750 MG PO; +ONDANSETRON ODT4 MG SL; +PREDNISOLONE ACE5 ML OU; +VITAMIN E90 M1 PO; +[UNRECOGNIZED DRUG - OTHER] PO
[2025-02-27] MEDS ORDERED: LORazepam 2 MG/ML VIAL ONE (21:11)
[2025-02-27] MEDS ORDERED: SODIUM CHLORIDE 0.9% 1,000 ML IV ONE (21:15)
[2025-02-27] MEDS ORDERED: ETOMIDATE 40 MG/20 ML VIAL IV ONE (21:15)
[2025-02-27] MEDS ORDERED: DAPTOmycin 500 MG/10 ML VIAL IV ONE (21:15)
[2025-02-27] MEDS ORDERED: LORazepam 2 MG/ML VIAL IV ONE (21:15)
[2025-02-27 21:18] LABS: BASOPHILS 0.1 % (0.2-1.2); EOSINOPHILS 0 % (0.8-7.0); LYMPHOCYTES 6.5 % (21.8-53.1); MCH 32.1 PG (25.7-32.2); MCHC 34.0 g/dL (32.3-36.5); MCV 94.4 fL (79.0-92.2); MONOCYTES 8.3 % (5.3-12.2); NEUTROPHILS 84.8 % (34.0-67.9); RBC 4.48 M/uL (4.63-6.08)
[2025-02-27 21:32] LABS: INR 1.05 (0.80-1.30); PROTIME 13.3 Sec (11.2-14.2)
[2025-02-27 21:38] LABS: ALT (SGPT) 38.0 U/L (14-59); AST (SGOT) 37.0 U/L (15-37); GLOMERULAR FILTRATION RATE,EST 70.0 mL/min (>60); PROTEIN, TOTAL 7.9 g/dL (6.4-8.2); UREA NITROGEN 26.0 mg/dL (7-18)
[2025-02-27 21:44] LABS: LACTIC ACID, BLOOD 2.9 mmol/L (0.4-2.0)
[2025-02-27] MEDS ORDERED: SODIUM CHLORIDE 0.9% 500 ML IV ONE (21:45)
[2025-02-27 22:16] LABS: BLOOD/HGB, URINE MODERATE (Negative); KETONE, URINE >=80 (Negative); LEUK ESTERASE, URINE NEGATIVE (negative); NITRITE, URINE NEGATIVE (negative)
[2025-02-27 22:25] LABS: BACTERIA, URINE RARE /hpf (negative); CASTS, URINE NONE SEEN \\lpf; CRYSTALS, URINE NONE SEEN (0-1+); EPITHELIAL CELLS, URINE SQUAMOUS 1+ /lpf (0-1+); REFLEX CULTURE, URINE No (No)
[2025-02-27 22:29] LABS: AMPHETAMINES, URINE NEGATIVE (NEGATIVE); BARBITURATES, URINE NEGATIVE (NEGATIVE); BENZODIAZEPINE, URINE NEGATIVE (NEGATIVE); CANNABINOID, URINE POSITIVE (NEGATIVE); COCAINE, URINE NEGATIVE (NEGATIVE); ECSTASY, URINE NEGATIVE (NEGATIVE); FENTANYL, URINE NEGATIVE (NEGATIVE); METHADONE, URINE NEGATIVE (NEGATIVE); OPIATES, URINE NEGATIVE (NEGATIVE); OXYCODONE, URINE NEGATIVE (NEGATIVE); PHENCYCLIDINE, URINE NEGATIVE (NEGATIVE)
[2025-02-27 23:06] LABS: LACTIC ACID, BLOOD 1.6 mmol/L (0.4-2.0)
[2025-02-27 23:42] VITALS: BP 119/86
--- NOTE | 2025-03-02 21:17 | EKG ---
[facility] [address] [place], [place] [address] Signed Normal sinus rhythm Minimal voltage criteria for LVH, may be normal variant ( [facility] product ) Borderline ECG When compared with ECG of 14-OCT-2023 07:59, No significant change was found Confirmed by Alberto Esqueda DO ([id number]) on 03/02/2025 9:17:36 PM Electronically Signed By: ALBERTO ESQUEDA DO 03/02/25 2117 PATIENT NAME: LEONOR LEVIN MARINA Electrocardiogram DATE OF : 70 PHYSICIAN: ALBERTO ESQUEDA DO REPORT #: [id number] REPORT IS CONFIDENTIAL AND NOT TO BE RELEASED WITHOUT AUTHORIZATION
== END 2025-02-27 23:44 | disposition home or self-care (01) ==
LOC: ED 21:04
PROVIDERS: Family Medicine
DX: R56.9 Unspecified convulsions (principal); Z79.899 Other long term (current) drug therapy; Z87.891 Personal history of nicotine dependence
CPT/HCPCS: 36415; 51701; 70450; 71045; 80053; 80307; 81001; 83605; 83735; 85025; 85610; 85730; 93005; 93010; 96374; 96375; 99285-25; J0878; J1953; J2060; J7030; J7040

== ENCOUNTER 2025-04-30 11:22 | Emergency (ER) | payer MEDICARE, OTHER ==
[~2025-04-30] VITALS: Ht 177.8 cm; Wt 53.5 kg
[2025-04-30 11:42] LABS: BASOPHILS 0.2 % (0.2-1.2); EOSINOPHILS 0 % (0.8-7.0); LYMPHOCYTES 1.7 % (21.8-53.1); MCH 32.7 PG (25.7-32.2); MCHC 35.6 g/dL (32.3-36.5); MCV 91.6 fL (79.0-92.2); MONOCYTES 5.1 % (5.3-12.2); NEUTROPHILS 92.6 % (34.0-67.9); RBC 4.41 M/uL (4.63-6.08)
[2025-04-30] MEDS ORDERED: SUCCINYLCHOLINE CHLORIDE 20 MG/ML MDV IV ONE (11:45)
[2025-04-30] MEDS ORDERED: ETOMIDATE 40 MG/20 ML VIAL IV ONE (11:45)
[2025-04-30 11:51] LABS: INR 1.13 (0.80-1.30); PROTIME 13.8 Sec (11.2-14.2)
[2025-04-30 11:57] LABS: ALT (SGPT) 36.0 U/L (14-59); AST (SGOT) 65.0 U/L (15-37); GLOMERULAR FILTRATION RATE,EST 68.0 mL/min (>60); PROTEIN, TOTAL 7.2 g/dL (6.4-8.2); UREA NITROGEN 19.0 mg/dL (7-18)
[2025-04-30 12:13] LABS: BLOOD/HGB, URINE MODERATE (Negative); KETONE, URINE >=80 (Negative); LEUK ESTERASE, URINE NEGATIVE (negative); NITRITE, URINE POSITIVE (negative)
[2025-04-30 12:22] LABS: BACTERIA, URINE 2+ /hpf (negative); CASTS, URINE NONE SEEN \\lpf; CRYSTALS, URINE AMORPHOUS URATES 2+ (0-1+); EPITHELIAL CELLS, URINE 0 /lpf (0-1+); REFLEX CULTURE, URINE Yes (No)
[2025-04-30 12:35] LABS: AMPHETAMINES, URINE NEGATIVE (NEGATIVE); BARBITURATES, URINE NEGATIVE (NEGATIVE); BENZODIAZEPINE, URINE POSITIVE (NEGATIVE); CANNABINOID, URINE POSITIVE (NEGATIVE); COCAINE, URINE NEGATIVE (NEGATIVE); ECSTASY, URINE NEGATIVE (NEGATIVE); FENTANYL, URINE NEGATIVE (NEGATIVE); METHADONE, URINE NEGATIVE (NEGATIVE); OPIATES, URINE NEGATIVE (NEGATIVE); OXYCODONE, URINE NEGATIVE (NEGATIVE); PHENCYCLIDINE, URINE NEGATIVE (NEGATIVE)
[2025-04-30] MEDS ORDERED: SODIUM CHLORIDE 0.9% 2,500 ML IV PRN (13:00)
[2025-04-30] MEDS ORDERED: ACETAMINOPHEN 650 MG SUPP PR ONE (13:00)
[2025-04-30] MEDS ORDERED: LORazepam 2 MG/ML VIAL IV ONE ×2 (13:00→13:30)
[2025-04-30 13:29] LABS: LACTIC ACID, BLOOD 3.5 mmol/L (0.4-2.0)
[2025-04-30] MEDS ORDERED: PHENOBARBITAL SOD 130 MG/ML VIAL IV ONE (14:00)
[2025-04-30] MEDS ORDERED: LORazepam 2 MG/ML VIAL IV PRN (14:15)
[2025-04-30] MEDS ORDERED: PANTOPRAZOLE SODIUM 40 MG/10 ML VIAL IV ONE (14:15)
[2025-04-30] MEDS ORDERED: ACETAMINOPHEN 1,000 MG/100 ML VIAL IV ONE (15:45)
[2025-04-30 16:13] LABS: LACTIC ACID, BLOOD 1.9 mmol/L (0.4-2.0)
[2025-04-30 17:22] LABS: TSH, 3RD GENERATION 0.444 uIU/mL (0.358-3.740)
[2025-04-30] MEDS ORDERED: SODIUM CHLORIDE 0.9% 1,000 ML IV PRN (18:30)
[2025-04-30] MEDS ORDERED: THIAMINE HCL 200 MG/2 ML VIAL IV ONE (18:30)
[2025-04-30] MEDS ORDERED: AMPICILLIN SOD 2 GM in SODIUM CHLORIDE 0.9% 100 ML IV ONE (19:00)
[2025-04-30] MEDS ORDERED: VANCOMYCIN HCL 1 GM in DEXTROSE 5% 250 ML IV ONE (19:00)
[2025-04-30 19:28] VITALS: BP 105/74
--- NOTE | 2025-05-01 10:45 | EKG ---
[facility] [address] [facility] [place], [place] [address] Signed Sinus tachycardia Otherwise normal ECG When compared with ECG of 27-FEB-2025 21:12, Nonspecific T wave abnormality now evident in Inferior leads Confirmed by Alberto Esqueda DO ([id number]) on 05/01/2025 10:45:00 AM Electronically Signed By: ALBERTO ESQUEDA DO 05/01/25 1045 PATIENT NAME: LEONOR LEVIN MARINA Electrocardiogram DATE OF : 70 PHYSICIAN: ALBERTO ESQUEDA DO REPORT #: [id number] REPORT IS CONFIDENTIAL AND NOT TO BE RELEASED WITHOUT AUTHORIZATION
== END 2025-04-30 19:21 | disposition short-term general hospital (02) ==
LOC: ED 11:22
PROVIDERS: Emergency Medicine
DX: G40.901 Epilepsy, unspecified, not intractable, with status epilepticus (principal); F10.10 Alcohol abuse, uncomplicated; R50.9 Fever, unspecified; D72.829 Elevated white blood cell count, unspecified; Z87.891 Personal history of nicotine dependence; Z79.899 Other long term (current) drug therapy; Z79.52 Long term (current) use of systemic steroids
CPT/HCPCS: 36415; 51702; 70450; 71045; 71260; 74177; 80053; 80307; 81001; 82550; 83605; 84443; 85025; 85610; 87088; 93005; 93010; 96365; 96367; 96375; 96376; 99291; A9270; G0480; J0131; J0290; J0696; J1953; J2060; J2470; J2560; J3373; J3411; J7030; J7060; Q9967